=== PATIENT | female | born 1950 | race Caucasian/White ===

== ENCOUNTER → 2017-09-30 14:30 | Outpatient (CLI) | payer MEDICARE, SELFPAY ==
[2017-10-06 05:07] LABS: Immunoglobulin A 80 mg/dL (87-352); Immunoglobulin G 657 mg/dL (700-1600); Immunoglobulin M 188 mg/dL (26-217)
[2017-10-06 11:04] LABS: Immunoglobulin E 13 IU/mL (0-100)
== END ==
PROVIDERS: Family Provider Family Medicine Geriatric Medicine; PCP Family Medicine Geriatric Medicine; Visit Provider Family Medicine Geriatric Medicine
DX: D89.9 Disorder involving the immune mechanism, unspecified (principal)
CPT/HCPCS: 36415; 82784; 82785

== ENCOUNTER → 2017-10-19 14:59 | Outpatient (CLI) | payer MEDICARE, SELFPAY ==
[2017-10-19 17:01] LABS: Absolute Lymphocyte Count 2.22 X10^3/ul (0.83-4.51); Absolute Neutrophil Count 5.4 X10^3/uL (2.0-7.7); Basophil# 0.04 X10^3/uL; Basophil% 0.5 % (0-1); Eosinophil# 0.04 X10^3/uL; Eosinophils% 0.5 % (0-5); Hematocrit 41.1 % (37-47); Hemoglobin 13.6 g/dl (12.0-15.0); Lymphocyte # 2.22 X10^3/ul (4.0); Lymphocyte % 26.4 % (19-41); Mean Corp Hgb Conc 33.1 g/gl (32-36); Mean Corpuscular Hgb 29.5 pg (27.0-32.0); Mean Corpuscular Volume 89.2 fL (81-99); Mean Platelet Vol. 10.3 fl (6.2-12.0); Monocyte# 0.65 X10^3/uL; Monocyte% 7.7 % (0-10); Neutrophil # 5.43 X10^3/uL (2.7-7.7); Neutrophil % 64.7 % (47-70); Platelet Count 317 K/mm3 (150-450); RBC Distribution Width CV 14.2 % (11.6-14.6); RBC Distribution Width SD 45.8 fl (35.1-43.9); Red Blood Count 4.61 M/mm3 (4.2-5.4); White Blood Count 8.4 K/mm3 (4.4-11.0)
[2017-10-19 17:09] LABS: POSITIVE COUNT NO; POSITIVE DIFFERENTIAL NO; POSITIVE MORPHOLOGY NO
[2017-10-19 17:20] LABS: ALB/GLOB Ratio 0.9 RATIO (0.9-2.4); AST(SGOT) 17 U/L (15-37); Alanine Aminotransfer ALT/SGPT 25 U/L (13-56); Albumin, Serum 3.5 g/dL (3.2-5.0); Alkaline Phosphatase 99 U/L (45-117); Anion Gap 7 (5-15); BUN 10 mg/dL (7-18); BUN/Creat Ratio 11.2 RATIO (10-20); Calcium,Total 8.4 mg/dL (8.5-10.1); Chloride 100 mmol/L (98-107); Creatinine, Serum 0.89 mg/dL (0.55-1.02); EST Glomerular Filtration Rate 67 mL/min (>60); Est Glom Filt Rate - Afr Amer 81 mL/min (>60); Globulin 3.9 g/dL (2.2-4.2); Glucose 122 mg/dL (74-106); Potassium 3.3 mmol/L (3.5-5.1); Protein, Total 7.4 g/dL (6.4-8.2); Sodium Level 134 mmol/L (136-145); Thyroid Stim Hormone (TSH) 1.77 uIU/mL (0.358-3.74); Vitamin D,25 Hydroxy 63.5 ng/mL (29.95-100.01)
== END ==
PROVIDERS: Family Provider Family Medicine Geriatric Medicine; PCP Family Medicine Geriatric Medicine; Visit Provider Family Medicine Geriatric Medicine
DX: I10 Essential (primary) hypertension (principal); E55.9 Vitamin D deficiency, unspecified
CPT/HCPCS: 36415; 80053; 82306; 84443; 85025

== ENCOUNTER → 2017-11-10 15:00 | Outpatient (CLI) | payer MEDICARE, SELFPAY ==
[2017-11-10 17:54] LABS: BUN 10 mg/dL (7-18); Creatinine, Serum 0.86 mg/dL (0.55-1.02); EST Glomerular Filtration Rate 70 mL/min (>60); Glucose 88 mg/dL (74-106)
[2017-11-10 17:55] LABS: Anion Gap 9 (5-15); BUN/Creat Ratio 11.7 RATIO (10-20); Calcium,Total 8.8 mg/dL (8.5-10.1); Chloride 96 mmol/L (98-107); Est Glom Filt Rate - Afr Amer 84 mL/min (>60); Potassium 3.9 mmol/L (3.5-5.1); Sodium Level 133 mmol/L (136-145)
== END ==
PROVIDERS: Family Provider Family Medicine Geriatric Medicine; PCP Family Medicine Geriatric Medicine; Visit Provider Family Medicine Geriatric Medicine
DX: E87.6 Hypokalemia (principal)
CPT/HCPCS: 36415; 80048

== ENCOUNTER → 2017-11-16 14:44 | Outpatient (CLI) | payer MEDICARE, SELFPAY | PROVIDERS: Family Provider Family Medicine Geriatric Medicine; PCP Family Medicine Geriatric Medicine; Visit Provider Family Medicine Geriatric Medicine | DX: R50.9 Fever, unspecified (principal) | CPT/HCPCS: 87633 ==

== ENCOUNTER → 2018-04-21 14:38 | Outpatient (CLI) | payer MEDICARE, SELFPAY ==
[2018-04-21 17:09] LABS: Absolute Lymphocyte Count 2.11 X10^3/ul (0.83-4.51); Absolute Neutrophil Count 4.1 X10^3/uL (2.0-7.7); Basophil# 0.06 X10^3/uL; Basophil% 0.8 % (0-1); Eosinophil# 0.13 X10^3/uL; Eosinophils% 1.8 % (0-5); Hematocrit 41.4 % (37-47); Hemoglobin 13.5 g/dl (12.0-15.0); Lymphocyte # 2.11 X10^3/ul (4.0); Lymphocyte % 29.6 % (19-41); Mean Corp Hgb Conc 32.6 g/gl (32-36); Mean Corpuscular Volume 88.8 fL (81-99); Mean Platelet Vol. 10.3 fl (6.2-12.0); Monocyte# 0.73 X10^3/uL; Monocyte% 10.2 % (0-10); Neutrophil # 4.09 X10^3/uL (2.7-7.7); Neutrophil % 57.5 % (47-70); Platelet Count 284 K/mm3 (150-450); RBC Distribution Width CV 13.5 % (11.6-14.6); RBC Distribution Width SD 43.4 fl (35.1-43.9); Red Blood Count 4.66 M/mm3 (4.2-5.4); White Blood Count 7.1 K/mm3 (4.4-11.0)
[2018-04-21 17:21] LABS: POSITIVE COUNT NO; POSITIVE DIFFERENTIAL NO; POSITIVE MORPHOLOGY NO
[2018-04-21 18:23] LABS: ALB/GLOB Ratio 0.9 RATIO (0.9-2.4); AST(SGOT) 20 U/L (15-37); Alanine Aminotransfer ALT/SGPT 28 U/L (13-56); Albumin, Serum 3.6 g/dL (3.2-5.0); Alkaline Phosphatase 99 U/L (45-117); Anion Gap 11 (5-15); BUN 11 mg/dL (7-18); Calcium,Total 8.9 mg/dL (8.5-10.1); Chloride 96 mmol/L (98-107); Creatinine, Serum 0.85 mg/dL (0.55-1.02); EST Glomerular Filtration Rate 70 mL/min (>60); Est Glom Filt Rate - Afr Amer 85 mL/min (>60); Globulin 3.9 g/dL (2.2-4.2); Glucose 98 mg/dL (74-106); Potassium 3.7 mmol/L (3.5-5.1); Protein, Total 7.5 g/dL (6.4-8.2); Sodium Level 135 mmol/L (136-145); Thyroid Stim Hormone (TSH) 2.28 uIU/mL (0.358-3.74)
[2018-04-24 14:11] LABS: Hep C Antibodies <0.1 s/co ratio (0.0-0.9)
== END ==
PROVIDERS: Family Provider Family Medicine Geriatric Medicine; PCP Family Medicine Geriatric Medicine; Visit Provider Family Medicine Geriatric Medicine
DX: I10 Essential (primary) hypertension (principal); E55.9 Vitamin D deficiency, unspecified; Z13.89 Encounter for screening for other disorder
CPT/HCPCS: 36415; 80053; 82306; 84443; 85025; 86803

== ENCOUNTER → 2018-05-27 15:11 | Outpatient (CLI) | payer MEDICARE, SELFPAY ==
--- NOTE | 2018-05-27 15:14 | BI_ITS ---
MAMMOGRAPHY - BILATERAL SCREENING REASON FOR EXAM: Female, 68 years old. Routine annual screening examination. PERTINENT HISTORY: Non-contributory. TECHNIQUE: Digital bilateral breast [place] (3D mammographic acquisition) in the CC and MLO projections. 2-D mediolateral oblique (MLO) and craniocaudad (CC) views of both breasts were obtained. CAD: Full Field Digital Mammography with Computer Added Detection was performed. COMPARISON: Comparison is made with prior study dated May 01, 2016 and April 20, 2014. FINDINGS: Breast Composition: There are scattered areas of fibroglandular density. There are no dominant masses or suspicious calcifications. Stable benign-appearing bilateral axillary lymph nodes. No other significant abnormalities are identified. There has been no significant change since the prior study. BI/SCREENING MAMM (CAD), BILAT IMPRESSION: Stable bilateral screening mammogram. Yearly follow-up mammogram recommended. (A) ASSESSMENT CATEGORY: BIRADS Category 2: Benign. A letter regarding these results will be sent to the patient by the facility within 30 days. Approximately 10% of breast cancers are not detected by mammography. A normal mammogram should not delay biopsy of a clinically suspicious abnormality. [id number] Electronically Signed: Ifeanyi Álvarez MD at 10:41 EDT Tel [phone], Service support ,
--- NOTE | 2018-05-27 15:16 | BD_ITS ---
STUDY: DUAL ENERGY X-RAY ABSORPTIOMETRY / DXA REASON FOR EXAM: Female, 68 years old. The patient is postmenopausal. Loss of height. TECHNIQUE: Bone Mineral Density (BMD) measurements of lumbar spine and bilateral hips were obtained. COMPARISON: Comparison is made with prior study dated July 21, 2007. FINDINGS: Lumbar Spine (L1-L4): g/cm2 (1.168) / T-score (-0.1) / Z-score (1.6) Findings are suggestive of normal bone density with a low fracture risk. Left Femur Total: g/cm2 (0.957) / T-score (-0.4) / Z-score (1.1) Left Femoral Neck: g/cm2 (0.863) / T-score (-1.3) / Z-score (0.4) Right Femur Total: g/cm2 (0.943) / T-score (-0.5) / Z-score (1.0) Right Femoral Neck: g/cm2 (0.867) / T-score (-1.2) / Z-score (0.5) The T-Scores on the most recent prior examination were: Lumbar Spine (L1-L4): There has been improvement of bone density since the previous examination. Left Femur Total: which represents an improvement of 3.5%. Right Femur Total: which represents an improvement of 2.1%. BD/Dexa Bone Density Study IMPRESSION: The patient is considered osteopenic as outlined below according to World Jarvis Organization (WHO) criteria with a moderate fracture risk. There has been improvement of bone density since the previous examination. Reference Information: The T-score is the number of standard deviations above or below the standard which is normal for young adults at their peak bone mineral density. The World Health Organization (WHO) interprets the T-scores as follows: Above -1 Normal bone density Between -1 and -2.5 Osteopenia Equal to / or below -2.5 Osteoporosis As a practical clinical guideline, osteopenia may be graded as follows: Mild -1 through -1.5 Moderate -1.6 through -2.0 Severe -2.1 through -2.4 The Z-score is the number of standard deviations above or below age-matched controls. A Z-score of less than -1.5 would be considered abnormal. References: 1. NIH Osteoporosis and Related Bone Diseases http://www.osteo.org 2. International Society for Clinical Densitometry http://www.iscd.org 3. National Osteoporosis Foundation http://www.nof.org Electronically Signed: Ifeanyi Álvarez MD at 8:53 EDT Tel [phone], Service support ,
== END ==
PROVIDERS: Family Provider Family Medicine Geriatric Medicine; PCP Family Medicine Geriatric Medicine; Visit Provider Family Medicine Geriatric Medicine
DX: Z12.31 Encounter for screening mammogram for malignant neoplasm of breast (principal); Z78.0 Asymptomatic menopausal state
CPT/HCPCS: 77063; 77067; 77080

== ENCOUNTER → 2018-06-08 08:02 | Outpatient (CLI) | payer MEDICARE, SELFPAY ==
--- NOTE | 2018-06-08 08:05 | RAD_ITS ---
STUDY: X-RAY - ESOPHAGUS (BARIUM SWALLOW) WITH FLUOROSCOPY REASON FOR EXAM: Female, 68 years old. Distal esophageal spasm. Difficulty with pills. TECHNIQUE: 15 view(s) of the esophagus were obtained following swallowing of barium. FLUOROSCOPY TIME (if supplied): (0:30) minutes/seconds COMPARISON: None. FINDINGS: There is no demonstrated esophageal foreign body. There is no demonstrated stricture or mucosal abnormality. There is evidence of a moderate-sized sliding hernia with gastroesophageal reflux. The patient ingest a 12 mm tablet of barium without any difficulty. Normal visualized aortic arch and descending thoracic aorta. Normal visualized pulmonary parenchyma. Normal visualized osseous structures of the thorax. RAD/Esophagus Only IMPRESSION: Moderate sized hiatal hernia with gastroesophageal reflux. Electronically Signed: Ifeanyi Álvarez MD at 9:20 EDT Tel [phone], Service support ,
== END ==
PROVIDERS: Family Provider Family Medicine Geriatric Medicine; PCP Family Medicine Geriatric Medicine; Referring Provider Internal Medicine Gastroenterology; Visit Provider Internal Medicine Gastroenterology
DX: R13.10 Dysphagia, unspecified (principal); K21.9 Gastro-esophageal reflux disease without esophagitis
CPT/HCPCS: 74220

== ENCOUNTER → 2018-07-13 15:29 | Outpatient (CLI) | payer MEDICARE, SELFPAY ==
--- NOTE | 2018-07-13 15:32 | CT_ITS ---
STUDY: CT LEFT FOOT REASON FOR EXAM: Female, 68 years old. Follow-up left foot navicular fracture, continued pain due to fracture RADIATION DOSAGE (If Supplied By Facility): CTDIvol = ( 6.13 ) mGy, DLP = ( 116.81 ) mGycm TECHNIQUE: Thin section transaxial imaging of the foot was obtained, with sagittal and coronal reconstructed images. Individualized dose optimization techniques were used for this CT. COMPARISON: None. FINDINGS: Normal talus, calcaneus, and tarsal bones allowing for a tiny plantar caliber peroneal spur. Minimal anterior tibial spur. There is no acute fracture injury or dislocation. There is no callus formation to suggest of a healing fracture. There is no focal osteolytic or blastic lesion. Minimal joint space narrowing of the visualized tibiotalar, subtalar, talonavicular, calcaneocuboid, tarsal and tarsometatarsal articulations. Normal metatarsi. There is hallux valgus deformity of the first metatarsophalangeal joint. There is lateral displacement of the tibial and fibular sesamoid bones with the proximal phalanx, the tibial sesamoid is located at the expected location of the fibular sesamoid and fibular sesamoid along the first interphalangeal space. Normal interphalangeal joint of the great toe. Normal phalanges of the great toe. Normal second through fifth metatarsophalangeal joints. Normal interphalangeal joints and phalanges of the lesser toes. The soft tissue structures are unremarkable. CT/Extremity Lower without Contra IMPRESSION: No evidence of an acute or healing fracture or remote fracture deformity detected. Mild joint space narrowing. Hallux valgus deformity with lateral displacement of the tibia and fibula sesamoid paralleling the first proximal phalangeal angulation. Electronically Signed: Kathie Parnell MD at 2:25 EST , Service support ,
== END ==
PROVIDERS: Family Provider Family Medicine Geriatric Medicine; PCP Family Medicine Geriatric Medicine; Referring Provider Physician Assistant; Visit Provider Physician Assistant
DX: S92.255D Nondisplaced fracture of navicular [scaphoid] of left foot, subsequent encounter for fracture with routine healing (principal); X58.XXXD Exposure to other specified factors, subsequent encounter
CPT/HCPCS: 73700

== ENCOUNTER → 2018-08-18 15:12 | Outpatient (CLI) | payer MEDICARE, SELFPAY | PROVIDERS: Family Provider Family Medicine Geriatric Medicine; PCP Family Medicine Geriatric Medicine; Visit Provider Family Medicine Geriatric Medicine | DX: N39.0 Urinary tract infection, site not specified (principal) | CPT/HCPCS: 87086; 87088 ==

== ENCOUNTER → 2018-10-20 15:14 | Outpatient (CLI) | payer MEDICARE, SELFPAY ==
[2018-10-20 17:17] LABS: Absolute Lymphocyte Count 2.05 X10^3/ul (0.83-4.51); Absolute Neutrophil Count 4.4 X10^3/uL (2.0-7.7); Basophil# 0.03 X10^3/uL; Basophil% 0.4 % (0-1); Eosinophil# 0.09 X10^3/uL; Eosinophils% 1.3 % (0-5); Hematocrit 39.3 % (37-47); Hemoglobin 12.6 g/dl (12.0-15.0); Lymphocyte # 2.05 X10^3/ul (4.0); Lymphocyte % 28.5 % (19-41); Mean Corp Hgb Conc 32.1 g/gl (32-36); Mean Corpuscular Hgb 29.2 pg (27.0-32.0); Mean Platelet Vol. 10.2 fl (6.2-12.0); Monocyte# 0.67 X10^3/uL; Monocyte% 9.3 % (0-10); Neutrophil # 4.35 X10^3/uL (2.7-7.7); Neutrophil % 60.4 % (47-70); Platelet Count 287 K/mm3 (150-450); RBC Distribution Width CV 13.6 % (11.6-14.6); Red Blood Count 4.32 M/mm3 (4.2-5.4); White Blood Count 7.2 K/mm3 (4.4-11.0)
[2018-10-20 17:18] LABS: POSITIVE COUNT NO; POSITIVE DIFFERENTIAL NO; POSITIVE MORPHOLOGY NO
[2018-10-20 17:43] LABS: Vitamin D,25 Hydroxy 86.9 ng/mL (29.95-100.01)
[2018-10-20 17:54] LABS: ALB/GLOB Ratio 0.9 RATIO (0.9-2.4); AST(SGOT) 14 U/L (15-37); Alanine Aminotransfer ALT/SGPT 24 U/L (13-56); Albumin, Serum 3.5 g/dL (3.2-5.0); Alkaline Phosphatase 83 U/L (45-117); Anion Gap 9 (5-15); BUN 20 mg/dL (7-18); BUN/Creat Ratio 17.2 RATIO (10-20); Calcium,Total 8.7 mg/dL (8.5-10.1); Chloride 98 mmol/L (98-107); Creatinine, Serum 1.16 mg/dL (0.55-1.02); EST Glomerular Filtration Rate 49 mL/min (>60); Est Glom Filt Rate - Afr Amer 59 mL/min (>60); Globulin 3.7 g/dL (2.2-4.2); Glucose 103 mg/dL (74-106); Potassium 3.8 mmol/L (3.5-5.1); Protein, Total 7.2 g/dL (6.4-8.2); Sodium Level 135 mmol/L (136-145); Thyroid Stim Hormone (TSH) 1.96 uIU/mL (0.358-3.74)
== END ==
PROVIDERS: Family Provider Family Medicine Geriatric Medicine; PCP Family Medicine Geriatric Medicine; Visit Provider Family Medicine Geriatric Medicine
DX: I10 Essential (primary) hypertension (principal); E55.9 Vitamin D deficiency, unspecified
CPT/HCPCS: 36415; 80053; 82306; 84443; 85025

== ENCOUNTER → 2019-04-21 11:52 | Outpatient (CLI) | payer MEDICARE, SELFPAY ==
--- NOTE | 2019-04-21 11:57 | RAD_ITS ---
STUDY: X-RAY CHEST REASON FOR EXAM: Female, 69 years old. Bronchitis, nonproductive cough x6 days, chills TECHNIQUE: PA and lateral views of the chest. COMPARISON: Prior study of 06/16/2017 FINDINGS: There is a small calcified granuloma of the left lower lobe. There is no demonstrated pleural abnormality. Normal size heart. Normal mediastinum and savana. Normal visualized pulmonary arteries. There are calcified plaques of the aortic arch. There is a mild thoracic dextroscoliosis. Normal visualized ribs, clavicles, and shoulders. There is no demonstrated abnormality of the visualized soft tissue structures of the upper abdomen. RAD/Chest PA and Lateral IMPRESSION: Small calcified granuloma of the left lower lobe. Calcified plaques of the aortic arch. Mild thoracic dextroscoliosis. No acute cardiopulmonary disease process is seen. Chest findings are stable in the interval. Electronically Signed: Raul Orellana MD at 23:59 EDT , Service support ,
== END ==
PROVIDERS: Family Provider Family Medicine Geriatric Medicine; PCP Family Medicine Geriatric Medicine; Referring Provider Family Medicine Geriatric Medicine; Visit Provider Family Medicine Geriatric Medicine
DX: J40 Bronchitis, not specified as acute or chronic (principal); R68.83 Chills (without fever)
CPT/HCPCS: 71046; 87633

== ENCOUNTER → 2019-04-25 10:16 | Outpatient (CLI) | payer MEDICARE, SELFPAY ==
[2019-04-25 17:14] LABS: Absolute Lymphocyte Count 1.48 X10^3/uL (0.83-4.51); Absolute Neutrophil Count 8.1 X10^3/uL (2.0-7.7); Basophil# 0.02 X10^3/uL; Basophil% 0.2 % (0-1); Eosinophil# 0.01 X10^3/uL; Eosinophils% 0.1 % (0-5); Hematocrit 42.2 % (37-47); Hemoglobin 13.3 g/dL (12.0-15.0); Lymphocyte # 1.48 X10^3/ul (4.0); Lymphocyte % 14.4 % (19-41); Mean Corp Hgb Conc 31.5 g/dL (32-36); Mean Corpuscular Hgb 28.5 pg (27.0-32.0); Mean Corpuscular Volume 90.4 fL (81-99); Mean Platelet Vol. 10.2 fl (6.2-12.0); Monocyte% 5.8 % (0-10); NRBC Flagged by Analyzer 0 % (0-5); Neutrophil % 78.8 % (47-70); Platelet Count 282 K/mm3 (150-450); RBC Distribution Width CV 13.5 % (11.6-14.6); Red Blood Count 4.67 M/mm3 (4.2-5.4); White Blood Count 10.3 K/mm3 (4.4-11.0)
[2019-04-25 17:31] LABS: Vitamin D,25 Hydroxy 53.1 ng/mL (29.95-100.01)
[2019-04-25 17:48] LABS: ALB/GLOB Ratio 0.9 RATIO (0.9-2.4); AST(SGOT) 12 U/L (15-37); Alanine Aminotransfer ALT/SGPT 23 U/L (13-56); Albumin, Serum 3.7 g/dL (3.2-5.0); Alkaline Phosphatase 87 U/L (45-117); Anion Gap 11 (5-15); BUN 22 mg/dL (7-18); BUN/Creat Ratio 19.8 RATIO (10-20); Calcium,Total 8.9 mg/dL (8.5-10.1); Chloride 97 mmol/L (98-107); Creatinine, Serum 1.11 mg/dL (0.55-1.02); EST Glomerular Filtration Rate 52 mL/min (>60); Est Glom Filt Rate - Afr Amer 62 mL/min (>60); Glucose 140 mg/dL (74-106); Potassium 3.3 mmol/L (3.5-5.1); Protein, Total 7.7 g/dL (6.4-8.2); Sodium Level 133 mmol/L (136-145); Thyroid Stim Hormone (TSH) 2.93 uIU/mL (0.358-3.74)
== END ==
PROVIDERS: Family Provider Family Medicine Geriatric Medicine; PCP Family Medicine Geriatric Medicine; Visit Provider Family Medicine Geriatric Medicine
DX: I10 Essential (primary) hypertension (principal); M10.9 Gout, unspecified; E55.9 Vitamin D deficiency, unspecified
CPT/HCPCS: 36415; 80053; 82306; 84443; 84550; 85025

== ENCOUNTER → 2019-05-04 11:08 | Outpatient (CLI) | payer MEDICARE, SELFPAY ==
[2019-05-04 12:20] LABS: Anion Gap 9 (5-15); BUN 16 mg/dL (7-18); BUN/Creat Ratio 16.3 RATIO (10-20); Calcium,Total 8.7 mg/dL (8.5-10.1); Chloride 102 mmol/L (98-107); Creatinine, Serum 0.98 mg/dL (0.55-1.02); EST Glomerular Filtration Rate 59 mL/min (>60); Est Glom Filt Rate - Afr Amer 72 mL/min (>60); Glucose 108 mg/dL (74-106); Potassium 3.6 mmol/L (3.5-5.1); Sodium Level 137 mmol/L (136-145)
== END ==
PROVIDERS: Family Provider Family Medicine Geriatric Medicine; PCP Family Medicine Geriatric Medicine; Visit Provider Family Medicine Geriatric Medicine
DX: E87.6 Hypokalemia (principal)
CPT/HCPCS: 36415; 80048

== ENCOUNTER → 2019-05-11 11:22 | Outpatient (CLI) | payer MEDICARE, SELFPAY ==
[2019-05-11 12:10] LABS: Absolute Lymphocyte Count 1.38 X10^3/uL (0.83-4.51); Absolute Neutrophil Count 4.9 X10^3/uL (2.0-7.7); Basophil# 0.05 X10^3/uL; Basophil% 0.7 % (0-1); Eosinophils% 1.4 % (0-5); Hematocrit 40.8 % (37-47); Lymphocyte # 1.38 X10^3/ul (4.0); Lymphocyte % 19.8 % (19-41); Mean Corp Hgb Conc 31.9 g/dL (32-36); Mean Corpuscular Hgb 28.6 pg (27.0-32.0); Mean Corpuscular Volume 89.7 fL (81-99); Mean Platelet Vol. 9.9 fl (6.2-12.0); Monocyte# 0.55 X10^3/uL; Monocyte% 7.9 % (0-10); NRBC Flagged by Analyzer 0 % (0-5); Neutrophil # 4.88 X10^3/uL (2.7-7.7); Neutrophil % 69.9 % (47-70); Platelet Count 230 K/mm3 (150-450); RBC Distribution Width CV 13.5 % (11.6-14.6); RBC Distribution Width SD 44.5 fl (35.1-43.9); Red Blood Count 4.55 M/mm3 (4.2-5.4)
[2019-05-11 12:13] LABS: ALB/GLOB Ratio 0.9 RATIO (0.9-2.4); AST(SGOT) 14 U/L (15-37); Alanine Aminotransfer ALT/SGPT 22 U/L (13-56); Albumin, Serum 3.5 g/dL (3.2-5.0); Alkaline Phosphatase 90 U/L (45-117); Anion Gap 5 (5-15); BUN 19 mg/dL (7-18); BUN/Creat Ratio 17.3 RATIO (10-20); Calcium,Total 9.2 mg/dL (8.5-10.1); Chloride 102 mmol/L (98-107); EST Glomerular Filtration Rate 52 mL/min (>60); Est Glom Filt Rate - Afr Amer 63 mL/min (>60); Globulin 3.7 g/dL (2.2-4.2); Glucose 106 mg/dL (74-106); Potassium 3.8 mmol/L (3.5-5.1); Protein, Total 7.2 g/dL (6.4-8.2); Sodium Level 134 mmol/L (136-145); Thyroid Stim Hormone (TSH) 2.17 uIU/mL (0.358-3.74)
== END ==
LOC: POLAB3 11:22 → PSN 12:45
PROVIDERS: Family Provider Family Medicine Geriatric Medicine; PCP Family Medicine Geriatric Medicine; Referring Provider Family Medicine Geriatric Medicine; Visit Provider Family Medicine Geriatric Medicine
DX: R53.83 Other fatigue (principal); R68.83 Chills (without fever)
CPT/HCPCS: 36415; 80053; 84443; 85025; 87633

== ENCOUNTER → 2019-05-26 16:08 | Outpatient (CLI) | payer MEDICARE, SELFPAY ==
--- NOTE | 2019-05-26 16:15 | RAD_ITS ---
STUDY: X-RAY CHEST REASON FOR EXAM: Female, 69 years old. Cough, bronchitis TECHNIQUE: PA and lateral views of the chest. COMPARISON: 04/21/2019 FINDINGS: There is hyperinflation of the lungs consistent with chronic obstructive lung disease (COPD). There is no demonstrated pleural abnormality. Normal size heart. Normal mediastinum and savana. Normal visualized pulmonary arteries. Normal visualized aortic arch and descending thoracic aorta. There is a dextroscoliosis of the thoracic spine. Normal visualized ribs, clavicles, and shoulders. There is no demonstrated abnormality of the visualized soft tissue structures of the upper abdomen. RAD/Chest PA and Lateral IMPRESSION: Emphysema without pneumonia or atelectasis. Electronically Signed: Cristofer Murphy MD at 16:44 EDT Tel , Service support ,
== END ==
PROVIDERS: Family Provider Family Medicine Geriatric Medicine; PCP Family Medicine Geriatric Medicine; Referring Provider Family Medicine Geriatric Medicine; Visit Provider Family Medicine Geriatric Medicine
DX: J40 Bronchitis, not specified as acute or chronic (principal); R68.83 Chills (without fever)
CPT/HCPCS: 71046; 87633

== ENCOUNTER → 2019-06-17 10:06 | Outpatient (CLI) | payer MEDICARE, SELFPAY ==
--- NOTE | 2019-06-17 10:13 | RAD_ITS ---
STUDY: X-RAY CHEST REASON FOR EXAM: Female, 69 years old. Shortness of breath. TECHNIQUE: PA and lateral views of the chest. COMPARISON: 05/26/2019. FINDINGS: The lungs are normally expanded with diffuse nonspecific interstitial prominence, stable. There is a calcified granuloma in the left lower lung field measuring 6 mm. Remainder of the lung gambino are clear. There is no demonstrated pleural abnormality. Normal size heart. Normal mediastinum and savana. Normal visualized pulmonary arteries. Normal visualized aortic arch and descending thoracic aorta. There is demineralization of the osseous structures. There is degenerative osteoarthritis of the bilateral shoulders. There is no demonstrated abnormality of the visualized soft tissue structures of the upper abdomen. RAD/Chest PA and Lateral IMPRESSION: No acute cardiopulmonary disease. Electronically Signed: Yolanda Butterfield MD at 0:40 EST , Service support ,
== END ==
PROVIDERS: Family Provider Family Medicine Geriatric Medicine; PCP Family Medicine Geriatric Medicine; Referring Provider Family Medicine Geriatric Medicine; Visit Provider Family Medicine Geriatric Medicine
DX: R06.89 Other abnormalities of breathing (principal)
CPT/HCPCS: 71046

== ENCOUNTER → 2019-06-30 07:31 | Outpatient (CLI) | payer MEDICARE, SELFPAY ==
--- NOTE | 2019-07-04 07:31 | PFT ---
INTRODUCTION: The patient is a 69-year-old female that presents for pulmonary function studies secondary to a diagnosis of shortness of breath. Respiratory therapy reports good patient effort. Bronchodilators were used during testing. INTERPRETATION: Forced expiration spirometry demonstrates no evidence of a large airways obstructive ventilatory defect. There was no significant response to aerosolized bronchodilators. Spirograms are of good quality and plateau normally. Body plethysmography was performed and reveals lung volumes to be within normal limits. Diffusing capacity by single breath CO is within normal limits as well. IMPRESSION: Normal spirometry, lung volumes and diffusing capacity.
== END ==
PROVIDERS: Family Provider Family Medicine Geriatric Medicine; PCP Family Medicine Geriatric Medicine; Referring Provider Family Medicine Geriatric Medicine; Visit Provider Family Medicine Geriatric Medicine
DX: R06.02 Shortness of breath (principal)
CPT/HCPCS: 94060; 94726; 94729

== ENCOUNTER 2019-07-07 21:35 | Observation (INO) | payer MEDICARE, SELFPAY ==
[2019-07-07 21:35] VITALS: BP 127/72; PULSE 79; PULSE 83; RESP 16; TEMP 36.6; O2SAT 96; BMI 28.4
--- NOTE | 2019-07-07 21:58 | EKG12_ITS ---
Test Reason : CP Blood Pressure : / mmHG Vent. Rate : 079 BPM Atrial Rate : 079 BPM P-R Int : 158 ms QRS Dur : 082 ms QT Int : 390 ms P-R-T Axes : 032 030 058 degrees QTc Int : 447 ms Normal sinus rhythm with sinus arrhythmia Normal ECG Confirmed by ROMAIN MORSE, NANI ([id number]), editor producer OG FUNES ([id number]) on 07/11/2019 11:46:04 AM Referred By: Confirmed By:NANI HOYOS MD
--- NOTE | 2019-07-07 21:59 | ED.DCSUM_ITS ---
- ER Visit Summary Date of Service: 07/07/19 Chief Complaint: Chest pain History of Present Illness: The patient is a 69 F who presents with chest pain that began tonight. Patient states she woke up tonight feeling nauseated and was going to her bathroom. Patient states that she also had chest pain when she woke up. Patient states her pain became worse after she vomited and walked back to her bedroom. Patient describes her pain as sharp and aching. Patient states the pain is over the substernal area. Patient called EMS. EMS administered aspirin and nitroglycerin. Patient states her pain improved with this. Patient states she has been having some palpitations recently where her heart feels like it is beating hard. Patient also admits to a recent cough but denies any sputum production. Patient denies any fevers or chills. Physical Examination: Vital signs are stable. Patient is afebrile. Patient is in no acute distress. Oral mucosa is pink and moist. Neck is supple. Trachea is midline. There is no JVD noted. Heart was regular rate and rhythm. Lungs are clear and equal bilaterally. Abdomen is soft. Bowel sounds are normal. There is no tenderness. There is no guarding noted. Skin is warm dry. Cranial nerves II through XII are intact. There are no focal motor or sensory deficits noted. Test Results: EKG showed a normal sinus rhythm with a rate of 79. There are no acute ST or T wave changes. This was unchanged compared to previous EKG dated 06/21/2008. CBC shows a mild 0.7 and hematocrit 35.8. Basic metabolic profile was essentially normal limits. Troponin was normal. PA and lateral chest x-ray was obtained. There is no acute cardiopulmonary process. This was interpreted by the radiologist myself. Emergency Department Course and Treatment: Patient had no further chest pain emergency department. Patient was resting comfortably on reevaluation. Patient has a HEART score of 5. I recommended admission to the patient for further evaluation and probable stress test. Patient was agreeable with this. Case was discussed with the hospitalist. He will admit the patient to the PCU for observation. Disposition: Admit to hospital Impression: 1. Chest pain This note was generated with [employer] dictation software. It may contain incorrect words, spelling, and punctuation that were not noted in review of the chart pr ior to signing ED Disposition - Plan for ED Patient: Disposition: Acute Care Hospital [facility] Diagnosis: Chest pain Referrals: Reed Cuenca Chi, MD [Primary Care Provider] -
[2019-07-07 22:01] VITALS: O2SAT 97
--- NOTE | 2019-07-07 22:05 | RAD_ITS ---
STUDY: X-RAY CHEST REASON FOR EXAM: Female, 69 years old. Nausea and vomiting TECHNIQUE: PA and lateral views of the chest. COMPARISON: 06/17/2019 FINDINGS: EKG leads overlie the chest There are interstitial fibrotic changes of the lungs with scattered calcified granulomata. There is no demonstrated pleural abnormality. Normal size heart. Normal mediastinum and savana. Normal visualized pulmonary arteries. Normal visualized aortic arch and descending thoracic aorta. Normal visualized thoracic spine. Normal visualized ribs, clavicles, and shoulders. There is no demonstrated abnormality of the visualized soft tissue structures of the upper abdomen. RAD/Chest PA and Lateral IMPRESSION: No acute pulmonary process Electronically Signed: Oskar Mathew MD at 22:28 EST , Service support ,
[2019-07-07 22:07] LABS: Absolute Lymphocyte Count 2.24 X10^3/uL (0.83-4.51); Absolute Neutrophil Count 3.4 X10^3/uL (2.0-7.7); Basophil# 0.05 X10^3/uL; Basophil% 0.8 % (0-1); Eosinophil# 0.14 X10^3/uL; Eosinophils% 2.2 % (0-5); Hematocrit 35.8 % (37-47); Hemoglobin 11.7 g/dL (12.0-15.0); Lymphocyte # 2.24 X10^3/ul (4.0); Lymphocyte % 34.9 % (19-41); Mean Corp Hgb Conc 32.7 g/dL (32-36); Mean Corpuscular Hgb 29.8 pg (27.0-32.0); Mean Corpuscular Volume 91.1 fL (81-99); Mean Platelet Vol. 10.5 fl (6.2-12.0); Monocyte# 0.58 X10^3/uL; NRBC Flagged by Analyzer 0 % (0-5); Neutrophil # 3.38 X10^3/uL (2.7-7.7); Neutrophil % 52.8 % (47-70); Platelet Count 207 K/mm3 (150-450); RBC Distribution Width CV 14.4 % (11.6-14.6); RBC Distribution Width SD 48.4 fl (35.1-43.9); Red Blood Count 3.93 M/mm3 (4.2-5.4); White Blood Count 6.4 K/mm3 (4.4-11.0)
[2019-07-07 22:20] LABS: Anion Gap 9 (5-15); BUN 13 mg/dL (7-18); BUN/Creat Ratio 14.9 RATIO (10-20); Calcium,Total 8.3 mg/dL (8.5-10.1); Chloride 110 mmol/L (98-107); Creatinine, Serum 0.87 mg/dL (0.55-1.02); EST Glomerular Filtration Rate 68 mL/min (>60); Est Glom Filt Rate - Afr Amer 82 mL/min (>60); Estimated Creatinine Clearance 51.22 ml/min; Glucose 97 mg/dL (74-106); Potassium 3.6 mmol/L (3.5-5.1); Sodium Level 143 mmol/L (136-145)
[2019-07-07 22:30] VITALS: BP 128/67; PULSE 78; RESP 16; O2SAT 98
--- NOTE | 2019-07-07 22:44 | PCM.HP.STD ---
Problem List (1) Chest pain Status: Acute History of Present Illness Date of Admission: 07/07/19 Chief Complaint: chest pain The patient is a 69 year old F with a significant history of hypertension; GERD; chronic headache and anxiety who presented to emergency department with excruciating chest pain after a few hours before presentation. The patient was asleep and she woke up because of nausea. Also she had chest pain when she woke up. She did vomit. And the chest pain worsened after vomiting. A chest pain is substernal and does not radiate. She is not able to provide a quality of her chest pain. The paramedics gave her a aspirin and sublingual nitroglycerin that improved her pain considerably. She has a history of GERD and she is unsure whether her chest pain is from her GERD. Stress test in 2013 was unremarkable Past Medical History Medical History: Medical History (Last Updated 07/07/19 @ 23:39 by Anthony Garcia MD) HTN (hypertension) I10 Allergies adhesive Allergy (Verified 07/07/19 21:50) Rash metaxalone [From Skelaxin] Allergy (Verified 07/07/19 21:50) Rash tramadol Allergy (Verified 07/07/19 21:50) Itching amitriptyline Adverse Reaction (Verified 07/07/19 21:50) Mucosal lesions budesonide [From Symbicort] Adverse Reaction (Verified 07/07/19 21:50) Mucosal lesions clarithromycin [From Biaxin] Adverse Reaction (Verified 07/07/19 21:50) Upset Stomach erythromycin base Adverse Reaction (Verified 07/07/19 21:50) Upset Stomach formoterol fumarate [From Symbicort] Adverse Reaction (Verified 07/07/19 21:50) Mucosal lesions naproxen Adverse Reaction (Verified 07/07/19 21:50) Upset Stomach Home Medications: Ambulatory Orders Medication Instructions Recorded Calcium Carbonate [Calcium] 600 mg PO DAILY 08/17/15 Co Q10 200 [Co Q-10] 200 mg PO DAILY 08/17/15 Ergocalciferol [Vitamin D] 1.25 mg PO Q7D 08/17/15 Estradiol 1 mg PO DAILY 08/17/15 Fish Oil/Borage/Flax/Om3,6,9 1 1,200 mg PO DAILY 08/17/15 [[place] 3-6-9 1,200 mg Softgel] Multivitamin [Daily Multiple 1 each PO DAILY 08/17/15 Vitamin] Omeprazole 20 mg PO BID 08/17/15 Cholecalciferol (Vitamin D3) 1,000 unit PO DAILY 07/07/19 [Vitamin D3] Citalopram Hydrobromide 10 mg PO DAILY 07/07/19 [Citalopram HBr] Magnesium Oxide [Magnesium] 400 mg PO DAILY 07/07/19 Zolpidem Tartrate 10 mg PO DAILY 07/07/19 Surgical History: hysterectomy, - - Two shoulder surgeries; foot surgery; two surgery for trigger fingers; carpal tunnel surgery; surgery for tubal ligation. Psychiatric History: Anxiety, Depression Smoking Status: Never smoker Alcohol: None - *Family History Maternal History Items: Cancer - Cancer of female organs, - - Arthritis; degenerative muscular disease Paternal History Items: Heart Disease - Multiple (3)have brought us in their 20s and 30s had heart disease. Also her aunt, uncle and father had heart disease, Stroke - His father had multiple CVAs Review of Systems Constitutional: Denies: Chills, Fever, Weight Change HEENT: Reports: Head Aches. Denies: Sinus Congestion, Sinus Drainage Cardiovascular: Reports: Chest Pain. Denies: Palpitations Respiratory: Reports: Cough - dry, Shortness of Breath. Denies: Sputum production Gastrointestinal: Reports: Nausea, Vomiting. Denies: Abdominal Pain Genitourinary: Denies: Dysuria Musculoskeletal: Denies: Joint Pain, Joint Tenderness Skin: Denies: Rash, Wounds Neurological: Denies: Numbness, Tingling, Focal weakness Psychiatric: Denies: Anxiety, Depression, Homicidal Ideations, Suicidal Ideations Hematologic/ Lymphatic: Denies: Easy Bruising, Easy Bleeding VTE Information - Inpt Only VTE Present on Admission: No VTE Mechan Device Prophylaxis: SCD's VTE Pharm Prophylaxis ordered?: No Patient Problems: Active and Suspected Problems (Last Updated 07/07/19 @ 23:39 by Anthony Garcia MD) Chest pain (Acute) - Physical Exam Vitals/I&O's: Vital Signs Temp Pulse Resp BP Pulse Ox 98 F 79 16 127/72 H 97 07/07/19 21:35 07/07/19 21:35 07/07/19 21:35 07/07/19 21:35 07/07/19 22:01 Oxygen Delivery Method Room Air Weight: 75.1 kg Body Mass Index (BMI) 28.4 General: Alert, Oriented x3, Cooperative HEENT: Atraumatic, PERRLA, EOMI, Normocephalic Neck: Supple, No JVD, Negative Carotid Bruits Lungs: Clear to auscultation, Normal air movement Cardiovascular: Regular rate, No murmurs Abdomen: Bowel Sounds Present, Soft, Non Tender Extremities: No edema, Capillary Refill Less than 3 Seconds Skin: No rashes, No breakdown Musculoskeletal: No Tenderness to Palpation of Joints or Extremities Neurological: Cranial nerves II-XII grossly intact Psych/Mental Status: Normal Affect, Appropriate Laboratory Results 07/07/19 21:41: WBC 6.4, RBC 3.93 L, Hgb 11.7 L, Hct 35.8 L, MCV 91.1, MCH 29.8, MCHC 32.7, RDW Std Deviation 48.4 H, RDW Coeff of Darlene 14.4, Plt Count 207, MPV 10.5, Immature Gran % (Auto) 0.300, Neut % (Auto) 52.8, Lymph % (Auto) 34.9, [place] % (Auto) 9.0, Eos % (Auto) 2.2, Baso % (Auto) 0.8, Absolute Neuts (auto) 3.4, Absolute Lymphs (auto) 2.24, Nucleated RBC % 0 07/07/19 21:41: Sodium 143, Potassium 3.6, Chloride 110 H, Carbon Dioxide 24.0, Anion Gap 9, BUN 13, Creatinine 0.87, Estim Creat Clear Calc 51.22, Est GFR (MDRD) Af Amer 82, Est GFR (MDRD) Non-Af 68, BUN/Creatinine Ratio 14.9, Glucose 97, Calcium 8.3 L, Troponin I < 0.015 Assessment/Plan All Active Problems (Last Updated 07/07/19 @ 23:39 by Anthony Garcia MD) Chest pain (Acute) The patient is a 69 year old F with a significant history of hypertension; chronic headache and anxiety who presented to emergency department with excruciating chest pain. Chest pain Place on a monitored bed at U CXR independently reviewed confirms no acute cardiopulmonary process. EKG independently reviewed confirms sinus rhythm ASA 81 mg p.o. daily We will check lipid panel. 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 She was then placed on Tylenol. Per patient Tylenol does not help with her pain. Patient attributes her headache to dehydration and reports that in the past IVF has helped improve her headache. Patient is requesting IV fluids. However labs do not show dehydration. Will put patient on half-normal saline with potassium since her potassium is low normal. Of note patient has mild hyperchloremia Depression/Anxiety disorder Citalopram continued. Insomnia Ambien continued GERD PPI continued Hypertension On presentation her blood pressure was within goal. Reportedly she was on some home medication that affected her kidney so the medication had to be discontinued. Trend blood pressure DVT prophylaxis SCD while planning for cardiac work up for chest pain Code Visit OBSV E&M: [id number] Initial observation care L3
[2019-07-07 23:15] VITALS: BP 121/59; PULSE 82; RESP 16; O2SAT 95
[2019-07-08] VITALS (9 sets, daily range): BP systolic 118–140; BP diastolic 47–64; PULSE 64–82; RESP 16–17; TEMP 36.6–36.8; O2SAT 93–96; BMI 25.9; BMI 26.0
--- NOTE | 2019-07-08 00:15 | EKG12_ITS ---
Test Reason : CP ADMISSION Blood Pressure : / mmHG Vent. Rate : 074 BPM Atrial Rate : 074 BPM P-R Int : 170 ms QRS Dur : 074 ms QT Int : 374 ms P-R-T Axes : 033 024 050 degrees QTc Int : 415 ms Normal sinus rhythm Normal ECG When compared with ECG of 07-JUL-2019 21:38, MANUAL COMPARISON REQUIRED, DATA IS UNCONFIRMED Confirmed by ROMAIN MORSE, NANI ([id number]), editorial writer OG FUNES ([id number]) on 07/11/2019 12:02:06 PM Referred By: LIYAH Confirmed By:NANI HOYOS MD
[2019-07-08] MEDS: 0.9% Saline Lock 10 ML Syringe IV (01:12)
[2019-07-08] MEDS: Potassium Chloride 40 MEQ in 0.45% Normal Saline 1,000 ML 100 MEQ IV (01:12)
[2019-07-08] MEDS: Aspirin E.C. 81 MG Tablet PO (04:57)
[2019-07-08 05:02] LABS: Anion Gap 8 (5-15); BUN 11 mg/dL (7-18); Calcium,Total 8.4 mg/dL (8.5-10.1); Chloride 110 mmol/L (98-107); Cholesterol 239 mg/dL (200); Creatinine, Serum 0.73 mg/dL (0.55-1.02); EST Glomerular Filtration Rate 83 mL/min (>60); Est Glom Filt Rate - Afr Amer 101 mL/min (>60); Estimated Creatinine Clearance 44.56 ml/min; Glucose 85 mg/dL (74-106); High Density Lipoprotein 59 mg/dL; Sodium Level 143 mmol/L (136-145); Triglycerides 153 mg/dL; Very Low Density Lipoprotein 31 mg/dL (5-40)
--- NOTE | 2019-07-08 09:59 | STRESSREP ---
Stress Test Report Pharmacologic myocardial perfusion stress test. 69-year-old lady with a history of chest pain. Stress protocol: Resting EKG demonstrates normal sinus rhythm with a rate of 71 bpm normal intervals are noted resting blood pressures 148/70 mmHg. 0.4 mg of regadenoson was infused per usual protocol followed by rapid intravenous and flush injection continuous EKG monitoring was performed. The maximum heart rate attained was 100 bpm which was 67% maximum predicted heart rate the maximum workload was 1 metabolic equivalent. The resting blood pressures 148/70 with a final blood pressure 140/70 mmHg. Myocardial perfusion protocol. 10.0 mCi of technetium 99m sestamibi was injected at rest. 0.4 mg of regadenoson was infused per usual protocol peak infusion 33.0 mCi of technetium 99m sestamibi was injected stress images were obtained stress and rest images were reconstructed and compared in the short axis vertical long horizontal long axis. Gated images were also obtained Perfusion SPECT analysis: Review of the stress images demonstrate normal uptake of tracer noted in all areas of the myocardium the resting images similar demonstrate normal uptake of tracer noted in all areas of myocardium. No areas of reversibility are noted suggest ischemia. Gated SPECT analysis: The gated ejection fraction is noted to be 89%. Conclusion: Normal pharmacologic myocardial perfusion stress test. Preserved ejection fraction.
[2019-07-08] MEDS: Citalopram 10 MG Tablet PO (10:14)
[2019-07-08] MEDS: Pantoprazole Sodium 20 MG Tablet PO (10:15)
--- NOTE | 2019-07-08 10:33 | PCM.DC ---
- Discharge Diagnoses Current Active Problems: Current Active and Chronic Problems (Last Updated 07/07/19 @ 23:39 by Anthony Garcia MD) Chest pain (Acute) You will use the following diet at home:: Cardiac Your food should be the consistency of: Regular Discharge Activity: May Not Drive - for 1 week and F/U PCP Call your doctor if you observe: Fever of 101 or Higher, Numbness or Tingling, Change in Color, Inability to urinate, Shortness of breath, Dizziness, Fainting spells, Swelling in the ankles, Chest pain, Increased palpitations (irregular heartbeat), Uncontrolled pain Allergies/Adverse Reactions: Allergies adhesive Allergy (Verified 07/07/19 21:50) Rash metaxalone [From Skelaxin] Allergy (Verified 07/07/19 21:50) Rash tramadol Allergy (Verified 07/07/19 21:50) Itching amitriptyline Adverse Reaction (Verified 07/07/19 21:50) Mucosal lesions budesonide [From Symbicort] Adverse Reaction (Verified 07/07/19 21:50) Mucosal lesions clarithromycin [From Biaxin] Adverse Reaction (Verified 07/07/19 21:50) Upset Stomach erythromycin base Adverse Reaction (Verified 07/07/19 21:50) Upset Stomach formoterol fumarate [From Symbicort] Adverse Reaction (Verified 07/07/19 21:50) Mucosal lesions naproxen Adverse Reaction (Verified 07/07/19 21:50) Upset Stomach Medications to take at Discharge Calcium Carbonate [Calcium] 600 mg PO DAILY 08/17/15 Co Q10 200 [Co Q-10] 200 mg PO DAILY 08/17/15 Ergocalciferol [Vitamin D] 1.25 mg PO Q7D 08/17/15 Estradiol 1 mg PO DAILY 08/17/15 Fish Oil/Borage/Flax/Om3,6,9 1 [[place] 3-6-9 1,200 mg Softgel] 1,200 mg PO DAILY 08/17/15 Multivitamin [Daily Multiple Vitamin] 1 each PO DAILY 08/17/15 Omeprazole 20 mg PO BID 08/17/15 Cholecalciferol (Vitamin D3) [Vitamin D3] 1,000 unit PO DAILY 07/07/19 Citalopram Hydrobromide [Citalopram HBr] 10 mg PO DAILY 07/07/19 Magnesium Oxide [Magnesium] 400 mg PO DAILY 07/07/19 Zolpidem Tartrate 10 mg PO DAILY 07/07/19 Atorvastatin Calcium 40 mg PO QHS #30 tab 07/08/19 Primary Care Physician: Reed Cuenca Chi, MD [Primary Care Provider] - Please follow up with your Primary Care Physician in: IN 2 Weeks. May need EGD for GERD Test Results: Test results from this visit will be discussed in further detail at your follow-up appointment, if applicable.
--- NOTE | 2019-07-08 10:36 | DS.PCM_ITS ---
Discharge Date and Diagnosis Date of Admission: 07/07/19 Date of Discharge: 07/08/19 - Primary Discharge Diagnosis Active and Suspected Problems (Last Updated 07/07/19 @ 23:39 by Anthony Garcia MD) Chest pain (Acute) Hospital Course and Treatment Imaging Results: 07/08/19 05:55 Nuclear Stress Test - Chemical [NM] AM (NON MEDS) Summary of Care Provided: The patient is a 69 year old F with history of GERD and hypertension was admitted with retrosternal chest pain from neck to epigastrium. Patient was admitted in PCU. Serial troponin enzymes were negative. EKG shows normal sinus rhythm. Patient had myocardial nuclear perfusion stress test and reported normal. No areas of reversibility noted to suggest ischemia. Gated EF 89%. Electrolytes within normal limit. Fasting lipid profile triglyceride 153, total cholesterol 239, LDL 149. [] Patient also has history of chronic headache and she takes Tylenol as needed for headache. Currently does not have a headache. Her other chronic symptoms of anxiety/depression and insomnia are well controlled. Patient is on omeprazole 20 mg twice daily for GERD. Advised to see PCP in 1 to 3 weeks and referral for EGD. Discharge medication reconciliation done. Discharge follow-up instructions completed. Discharge process discussed with the patient and all questions were answered to patient's satisfaction. Prescription for atorvastatin 40 mg daily sent to patient's pharmacy. Total time spent, exact 35 minutes on discharge meds reconciliation, examination, review of imaging and blood test and discussion with the patient on follow-up instructions. Subjective: Seen and examined. Patient has chronic GERD. She says that she felt pain in retrosternal area from neck to epigastrium along with vomiting 1 time.. Denies associated shortness of breath, diaphoresis. Chest pain was localized. Denies history of coronary artery disease, CHF or arrhythmia. Stress test 2014 was unremarkable. - Physical Exam Vitals/I&O's: Vital Signs Temp Pulse Resp BP Pulse Ox 98.2 F 73 17 140/64 H 96 07/08/19 07:50 07/08/19 07:50 07/08/19 07:50 07/08/19 07:50 07/08/19 07:50 Oxygen Delivery Method Room Air Weight: 151 lb 3.794 oz Body Mass Index (BMI) 25.9 Intake and Output for Last 24 Hours 07/06/19 07/07/19 07/08/19 23:59 23:59 23:59 Intake Total 730 / 730 Balance 730 / 730 General: Alert, Oriented x3, Cooperative HEENT: Atraumatic, PERRLA, EOMI, Normocephalic Neck: Supple, No JVD, Negative Carotid Bruits Lungs: Clear to auscultation, Normal air movement, No rhonchi, No wheeze, No rales Cardiovascular: Regular rate, Regular Rhythm, Normal S1, Normal S2, No murmurs Abdomen: Bowel Sounds Present, Soft, Non Tender, Non-Distended Extremities: No edema, Capillary Refill Less than 3 Seconds Skin: No rashes, No breakdown Musculoskeletal: No Tenderness to Palpation of Joints or Extremities Neurological: Cranial nerves II-XII grossly intact Psych/Mental Status: Normal Affect, Appropriate Laboratory Results 07/07/19 21:41: WBC 6.4, RBC 3.93 L, Hgb 11.7 L, Hct 35.8 L, MCV 91.1, MCH 29.8, MCHC 32.7, RDW Std Deviation 48.4 H, RDW Coeff of Darlene 14.4, Plt Count 207, MPV 10.5, Immature Gran % (Auto) 0.300, Neut % (Auto) 52.8, Lymph % (Auto) 34.9, [place] % (Auto) 9.0, Eos % (Auto) 2.2, Baso % (Auto) 0.8, Absolute Neuts (auto) 3.4, Absolute Lymphs (auto) 2.24, Nucleated RBC % 0 07/07/19 21:41: Sodium 143, Potassium 3.6, Chloride 110 H, Carbon Dioxide 24.0, Anion Gap 9, BUN 13, Creatinine 0.87, Estim Creat Clear Calc 51.22, Est GFR (MDRD) Af Amer 82, Est GFR (MDRD) Non-Af 68, BUN/Creatinine Ratio 14.9, Glucose 97, Calcium 8.3 L, Troponin I < 0.015 07/08/19 00:50: Troponin I < 0.015 07/08/19 04:20: Troponin I < 0.015 07/08/19 04:20: Sodium 143, Potassium 4.0, Chloride 110 H, Carbon Dioxide 25.0, Anion Gap 8, BUN 11, Creatinine 0.73, Estim Creat Clear Calc 44.56, Est GFR (MDRD) Af Amer 101, Est GFR (MDRD) Non-Af 83, BUN/Creatinine Ratio 15.0, Glucose 85, Calcium 8.4 L, Triglycerides 153, Cholesterol 239 H, LDL Cholesterol 149 H, VLDL Cholesterol 31, HDL Cholesterol 59 Current Medications Aspirin (Ecotrin) 81 mg PO DAILY@0800 [facility] Last Admin: 07/08/19 04:57 Dose: 81 mg Documented by: Calcium Carbonate (Tums) 500 mg PO DAILY [facility] Last Admin: 07/08/19 10:16 Dose: Not Given Documented by: Cholecalciferol (Vitamin D) 1,000 unit PO DAILY [facility] Last Admin: 07/08/19 10:15 Dose: Not Given Documented by: Citalopram Hydrobromide (Celexa) 10 mg PO DAILY [facility] Last Admin: 07/08/19 10:14 Dose: 10 mg Documented by: Dextrose (D50w Syringe) 0 gm IV X1 PRN; Protocol PRN Reason: Hypoglycemia Estradiol (Estrace (G)) 1 mg PO DAILY [facility] Last Admin: 07/08/19 10:15 Dose: Not Given Documented by: Glucagon () 1 mg IM .X1 PRN PRN Reason: Hypoglycemia Magnesium Oxide (Mag-Ox 400) 400 mg PO DAILY [facility] Last Admin: 07/08/19 10:15 Dose: Not Given Documented by: Multivitamins (Multivitamin) 1 tablet PO DAILYCM [facility] Last Admin: 07/08/19 10:14 Dose: Not Given Documented by: Ondansetron HCl (Zofran) 4 mg IV Q8H PRN PRN PRN Reason: NAUSEA/VOMITING Pantoprazole Sodium (Protonix) 20 mg PO BID [facility] Last Admin: 07/08/19 10:15 Dose: 20 mg Documented by: Sodium Chloride () 10 - 40 ml IV UD PRN PRN Reason: SALINE FLUSH Last Admin: 07/08/19 01:12 Dose: 10 ml Documented by: Zolpidem Tartrate (Ambien (Generic)) 5 mg PO DAILY@2200 [facility] Discharge Activity: May Not Drive - for 1 week and F/U PCP Call your doctor if you observe: Fever of 101 or Higher, Numbness or Tingling, Change in Color, Inability to urinate, Shortness of breath, Dizziness, Fainting spells, Swelling in the ankles, Chest pain, Increased palpitations (irregular heartbeat), Uncontrolled pain Home Medications: Medications to take at Discharge Calcium Carbonate [Calcium] 600 mg PO DAILY 08/17/15 Co Q10 200 [Co Q-10] 200 mg PO DAILY 08/17/15 Ergocalciferol [Vitamin D] 1.25 mg PO Q7D 08/17/15 Estradiol 1 mg PO DAILY 08/17/15 Fish Oil/Borage/Flax/Om3,6,9 1 [[place] 3-6-9 1,200 mg Softgel] 1,200 mg PO DAILY 08/17/15 Multivitamin [Daily Multiple Vitamin] 1 each PO DAILY 08/17/15 Omeprazole 20 mg PO BID 08/17/15 Cholecalciferol (Vitamin D3) [Vitamin D3] 1,000 unit PO DAILY 07/07/19 Citalopram Hydrobromide [Citalopram HBr] 10 mg PO DAILY 07/07/19 Magnesium Oxide [Magnesium] 400 mg PO DAILY 07/07/19 Zolpidem Tartrate 10 mg PO DAILY 07/07/19 Atorvastatin Calcium 40 mg PO QHS #30 tab 07/08/19 Following Prescrptions Were Given to Patient: Atorvastatin Calcium 40 mg PO QHS #30 tab Transmission Status: Received by [facility]/pharmacy #[id number] Primary Care Physician: Reed Cuenca Chi, MD [Primary Care Provider] - Please follow up with your Primary Care Physician in: IN 2 Weeks. May need EGD for GERD Medical Necessity - Tobacco Use Smoking Status: Never smoker Meaningful Use Info Meaningful Use Diagnoses (Choose all that apply): None applicable Code Visit OBSV E&M: 06689 Observation care discharge
== END 2019-07-08 10:36 | disposition home or self-care (01) ==
LOC: ED 22:46 → PCU 23:05
PROVIDERS: Admitting Provider Hospitalist; Emergency Provider Emergency Medicine; Family Provider Family Medicine Geriatric Medicine; PCP Family Medicine Geriatric Medicine; Visit Provider Internal Medicine
DX: R07.89 Other chest pain (principal); K21.9 Gastro-esophageal reflux disease without esophagitis; R11.2 Nausea with vomiting, unspecified; R00.2 Palpitations; I10 Essential (primary) hypertension; Z79.899 Other long term (current) drug therapy; F41.9 Anxiety disorder, unspecified; F32.9 Major depressive disorder, single episode, unspecified
CPT/HCPCS: 36415; 71046; 78452; 80048; 80061; 84484; 85025; 93005; 93017; 96360; 96361; 99218; 99285; A9500; J7030; A4216; G0378; J2785

== ENCOUNTER 2019-07-14 10:32 | Day surgery (SDC) | payer MEDICARE, SELFPAY ==
[2019-07-08 00:21] VITALS: BMI 25.9
[2019-07-14 10:55] VITALS: BP 138/56; PULSE 70; RESP 15; TEMP 36.6; O2SAT 97; BMI 25.3
[2019-07-14] MEDS: Lactated Ringers 1,000 ML 100 ML IV (11:17)
[2019-07-14] MEDS: Tetracaine 0.5% Ophthalmic Bottle 1 DRP OP (12:32)
[2019-07-14] MEDS: Povidone Iodine 30 ML Opthalmic Sol 1 DRP (12:40)
--- NOTE | 2019-07-14 13:15 | DCINST_ITS ---
Allergies/Adverse Reactions: Allergies adhesive Allergy (Verified 07/14/19 10:54) Rash metaxalone [From Skelaxin] Allergy (Verified 07/14/19 10:54) Rash tramadol Allergy (Verified 07/14/19 10:54) Itching amitriptyline Adverse Reaction (Verified 07/14/19 10:54) Mucosal lesions budesonide [From Symbicort] Adverse Reaction (Verified 07/14/19 10:54) Mucosal lesions clarithromycin [From Biaxin] Adverse Reaction (Verified 07/14/19 10:54) Upset Stomach erythromycin base Adverse Reaction (Verified 07/14/19 10:54) Upset Stomach formoterol fumarate [From Symbicort] Adverse Reaction (Verified 07/14/19 10:54) Mucosal lesions naproxen Adverse Reaction (Verified 07/14/19 10:54) Upset Stomach Medications to take at Discharge Calcium Carbonate [Calcium] 600 mg PO DAILY 08/17/15 Co Q10 200 [Co Q-10] 200 mg PO DAILY 08/17/15 Estradiol 1 mg PO DAILY 08/17/15 Fish Oil/Borage/Flax/Om3,6,9 1 [[place] 3-6-9 1,200 mg Softgel] 1,200 mg PO BID 08/17/15 Multivitamin [Daily Multiple Vitamin] 1 each PO DAILY 08/17/15 Omeprazole 20 mg PO BID 08/17/15 Cholecalciferol (Vitamin D3) [Vitamin D3] 1,000 unit PO DAILY 07/07/19 Citalopram Hydrobromide [Citalopram HBr] 10 mg PO DAILY 07/07/19 Magnesium Oxide [Magnesium] 400 mg PO DAILY 07/07/19 Zolpidem Tartrate 10 mg PO QHS 07/07/19 Cataract Instructions: -Take a pain reliever such as Tylenol, Aspirin or Ibuprofen if needed for eye aching or pain. If this is not enough relief for you pain, call your doctor (or the doctor infection control specialist), even at night. -You are scheduled for a follow-up appointment at [facility] the day after surgery. You should have someone drive you. -Transient pain and irritation are due to the incision that was made at the time of surgery and do not indicate any trouble. Our office numbers are . If there is no answer, or if it is after our normal business hours, call your surgeon. My home phone number is: Dr. Alma Goldberg INSTRUCTIONS FOLLOWING TOPICAL ANESTHETIC CATARACT SURGERY Protect operated eye with glasses or metal shield at all times. Instill one drop of Polytrim (or other antibiotic drop), one drop of Prednisolone and one drop of Acular in the operated eye four times a day (b reakfast, lunch, dinner, and bedtime) until the doctor tells you to quit or decrease them. Wait 3-5 minutes between each drop. Please begin these immediately upon arriving at home. if your surgery is in t he afternoon, try to use the drops at least three more times the day of surgery and again the following morning before your appointment. INSTRUCTIONS FOLLOWING RETROBULBAR CATARACT SURGERY Keep the eye patch and metal shield on until you see your surgeon the day after surgery - these will be removed in the office that day. Do not drive while the patch is on your eye. You will be instructed about the use of drops for the operated eye at that visit. Primary Care Physician: Reed Cuenca Chi, MD [Primary Care Provider] -
--- NOTE | 2019-07-14 13:15 | PCM.OPRPT ---
Report of Operation Date of Procedure: 07/14/19 Pre-Operative Diagnosis: cataract left eye Post-Operative Diagnosis: same Surgery/Procedure Performed:: pem iol os Description of Surgical Findings:: Indications for Procedure: This is a 69 yo female with history of worsening vision in the left eye due to cataract. After discussion of risks, benefits, and alternatives of surgery the patient agreed to proceed with cataract extraction with intraocular lens implant. Description of Procedure: The patient was brought to the operating room where a time out was performed prior to the start of the procedure. Anesthesia team induced light sedation. The eye was prepped and draped in the usual sterile fashion for eye surgery. A amy blade was used to create a paracentesis incision. Preservative free lidocaine, followed by viscoelastic. A keratome was used to create a clear corneal biplanar incision at the temporal limbus. A cystotome was used to begin the capsulorhexis which was completed in a continuous curvilinear fashion with forceps. BSS on silver cannula was used to hydrate beneath the lens capsule until it was noted to be freely mobile. Phacoemulsification was used to remove the lens in a divide and conquer technique. The remaining cortical material was removed using irrigation and aspiration. The capsular bag was intact and inflated with provisc. A tecnis PCBOO 15.0 diopter lens was placed into the capsular bag. The viscoelastic was removed using aspiration. The wounds were hydrated and noted to be watertight at the conclusion of the case. The patient was instructed to follow up in the clinic the following day. Type of Anesthesia:: MAC and Topical Anesth Estimated Blood Loss (mL): none - Complications none - Admit VTE Documentation Reason prophylaxis not ordered:: Treatment Not Indicated - patient can ambulate
[2019-07-14 13:16] VITALS: BP 133/76; BP 138/56; PULSE 77; RESP 14; TEMP 36.4; O2SAT 95
[2019-07-14 13:21] VITALS: BP 138/56; BP 145/69; PULSE 73; RESP 14; O2SAT 94
[2019-07-14 13:26] VITALS: BP 128/66; BP 138/56; PULSE 73; RESP 14; O2SAT 95
[2019-07-14 13:31] VITALS: BP 133/67; BP 138/56; PULSE 70; RESP 14; TEMP 36.4; O2SAT 97
== END 2019-07-14 14:21 | disposition home or self-care (01) ==
LOC: SDC 10:34 → AC 10:34
PROVIDERS: Family Provider Family Medicine Geriatric Medicine; PCP Family Medicine Geriatric Medicine; Referring Provider Ophthalmology; Visit Provider Ophthalmology
DX: H26.9 Unspecified cataract (principal); I10 Essential (primary) hypertension; E78.2 Mixed hyperlipidemia; M79.7 Fibromyalgia; M19.90 Unspecified osteoarthritis, unspecified site; M54.9 Dorsalgia, unspecified; G89.29 Other chronic pain; M85.80 Other specified disorders of bone density and structure, unspecified site; E55.9 Vitamin D deficiency, unspecified; K21.9 Gastro-esophageal reflux disease without esophagitis; G47.00 Insomnia, unspecified; F33.0 Major depressive disorder, recurrent, mild; F41.9 Anxiety disorder, unspecified; Z79.899 Other long term (current) drug therapy; Z78.0 Asymptomatic menopausal state
CPT/HCPCS: 00142; 66984; J7120

== ENCOUNTER 2019-07-28 10:24 | Day surgery (SDC) | payer MEDICARE, SELFPAY ==
[2019-07-28 10:59] VITALS: BP 128/54; PULSE 72; RESP 15; TEMP 36.6; O2SAT 96; BMI 25.8
[2019-07-28] MEDS: Lactated Ringers 1,000 ML 100 ML IV (11:15)
[2019-07-28] MEDS: Tetracaine 0.5% Ophthalmic Bottle 1 DRP OP (12:15)
[2019-07-28] MEDS: Povidone Iodine 30 ML Opthalmic Sol 1 DRP (12:20)
--- NOTE | 2019-07-28 12:52 | PCM.DC.CATCL ---
Allergies/Adverse Reactions: Allergies adhesive Allergy (Verified 07/28/19 10:57) Rash metaxalone [From Skelaxin] Allergy (Verified 07/28/19 10:57) Rash tramadol Allergy (Verified 07/28/19 10:57) Itching amitriptyline Adverse Reaction (Verified 07/28/19 10:57) Mucosal lesions budesonide [From Symbicort] Adverse Reaction (Verified 07/28/19 10:57) Mucosal lesions clarithromycin [From Biaxin] Adverse Reaction (Verified 07/28/19 10:57) Upset Stomach erythromycin base Adverse Reaction (Verified 07/28/19 10:57) Upset Stomach formoterol fumarate [From Symbicort] Adverse Reaction (Verified 07/28/19 10:57) Mucosal lesions naproxen Adverse Reaction (Verified 07/28/19 10:57) Upset Stomach Medications to take at Discharge Calcium Carbonate [Calcium] 600 mg PO DAILY 08/17/15 Co Q10 200 [Co Q-10] 200 mg PO DAILY 08/17/15 Estradiol 1 mg PO DAILY 08/17/15 Fish Oil/Borage/Flax/Om3,6,9 1 [[place] 3-6-9 1,200 mg Softgel] 1,200 mg PO BID 08/17/15 Multivitamin [Daily Multiple Vitamin] 1 each PO DAILY 08/17/15 Omeprazole 20 mg PO BID 08/17/15 Cholecalciferol (Vitamin D3) [Vitamin D3] 1,000 unit PO DAILY 07/07/19 Citalopram Hydrobromide [Citalopram HBr] 10 mg PO DAILY 07/07/19 Magnesium Oxide [Magnesium] 400 mg PO DAILY 07/07/19 Zolpidem Tartrate 10 mg PO QHS 07/07/19 Cataract Instructions: -Take a pain reliever such as Tylenol, Aspirin or Ibuprofen if needed for eye aching or pain. If this is not enough relief for you pain, call your doctor (or the doctor product applications scientist), even at night. -You are scheduled for a follow-up appointment at [facility] the day after surgery. You should have someone drive you. -Transient pain and irritation are due to the incision that was made at the time of surgery and do not indicate any trouble. Our office numbers are . If there is no answer, or if it is after our normal business hours, call your surgeon. My home phone number is: Dr. Alma Goldberg INSTRUCTIONS FOLLOWING TOPICAL ANESTHETIC CATARACT SURGERY Protect operated eye with glasses or metal shield at all times. Instill one drop of Polytrim (or other antibiotic drop), one drop of Prednisolone and one drop of Acular in the operated eye four times a day (breakfast, lunch, dinner, and bedtime) until the doctor tells you to quit or decrease them. Wait 3-5 minutes between each drop. Please begin these immediately upon arriving at home. if your surgery is in t he afternoon, try to use the drops at least three more times the day of surgery and again the following morning before your appointment. INSTRUCTIONS FOLLOWING RETROBULBAR CATARACT SURGERY Keep the eye patch and metal shield on until you see your surgeon the day after surgery - these will be removed in the office that day. Do not drive while the patch is on your eye. You will be instructed about the use of drops for the operated eye at that visit. Primary Care Physician: Reed Cuenca Chi, MD [Primary Care Provider] -
--- NOTE | 2019-07-28 12:52 | PCM.OPRPT ---
Report of Operation Date of Procedure: 07/28/19 Pre-Operative Diagnosis: Cataract Right Eye Post-Operative Diagnosis: same Surgery/Procedure Performed:: PEM IOL OD Description of Surgical Findings:: Indications for procedure: This is a [age] year old female with history of worsening vision in the right eye due to cataract. After discussion of the risks, benefits, and alternatives of cataract surgery the patient agreed to proceed. Description of procedure: The patient was brought to the operating room where a time out was performed prior to the cataract surgery. The eye was prepped and draped in the usual sterile fashion for eye surgery. A side port blade was used to create a paracentesis incision at the superotemporal limbus. Preservative free lidocaine followed by viscoat was instilled into the anterior chamber. A keratome was used to create a clear corneal biplanar incision at the temporal limbus. A cystotome was used to begin the capsulorhexis and was completed in a continuous, curvilear fashion using capsulorhexis forceps. BSS on a silver cannula was hydrated beneath the lens capsule until it was noted to be freely mobile in the capsular bag. Phacoemulsification was used to remove the lens in a divide and conquer technique. The remaining cortical material was removed using irrigation and aspiration. The capsular bad was intact and inflated with provisc. A tecnis PCBOO 15.5 lens was placed into the capsular bag and adjusted using a mendoza hook. The remaining viscoelastic material was removed. The wounds were hydrated and noted to be watertight with a weck cell sponge. The patient was taken to the recovery room in stable condition with instructions to follow up in the clinic the following day. Type of Anesthesia:: MAC and Topical Anesth Estimated Blood Loss (mL): none - Complications none - Admit VTE Documentation Reason prophylaxis not ordered:: Procedure Not Indicated - patient can ambulate
[2019-07-28 12:57] VITALS: BP 128/54; BP 156/76; PULSE 75; RESP 16; TEMP 37.1; O2SAT 99
[2019-07-28 13:02] VITALS: BP 128/54; BP 151/80; PULSE 73; RESP 16; O2SAT 99
[2019-07-28 13:07] VITALS: BP 128/54; BP 150/71; PULSE 69; RESP 16; O2SAT 97
[2019-07-28 13:12] VITALS: BP 128/54; BP 153/66; PULSE 73; RESP 16; TEMP 37.2; O2SAT 95
[2019-07-28 13:57] VITALS: BP 128/54
== END 2019-07-28 13:59 | disposition home or self-care (01) ==
LOC: SDC 10:26 → AC 10:29
PROVIDERS: Family Provider Family Medicine Geriatric Medicine; PCP Family Medicine Geriatric Medicine; Referring Provider Ophthalmology; Visit Provider Ophthalmology
PROC: (CPT 66984; principal; 2019-07-28 11:50)
DX: H25.811 Combined forms of age-related cataract, right eye (principal); K21.9 Gastro-esophageal reflux disease without esophagitis; F32.9 Major depressive disorder, single episode, unspecified; F41.9 Anxiety disorder, unspecified; Z79.899 Other long term (current) drug therapy
CPT/HCPCS: 00142; 66984; J7120

== ENCOUNTER → 2019-09-15 16:35 | Outpatient (CLI) | payer MEDICARE, SELFPAY ==
--- NOTE | 2019-09-15 16:48 | RAD_ITS ---
STUDY: X-RAY - ABDOMEN/PELVIS REASON FOR EXAM: Female, 69 years old. patient states she has some low back pain, no other complaints TECHNIQUE: Frontal views of the abdomen were performed COMPARISON: None. FINDINGS: Normal visualized lung bases. There is an unremarkable bowel gas pattern. There is no demonstrated free abdominal air. The visualized liver, spleen and kidneys are grossly normal in size and morphology. Normal soft tissue structures. There is levoscoliosis and degenerative changes in the spine which are imaged separately. RAD/Abd Inc Decub and/or Erect IMPRESSION: No intestinal obstruction. Scoliosis and spondylosis. Electronically Signed: Katlyn Triana, at 18:47 EST Tel , Service support ,
--- NOTE | 2019-09-15 16:50 | RAD_ITS ---
STUDY: X-RAY - LUMBAR SPINE REASON FOR EXAM: Female, 69 years old. patient states she has some low back pain, no other complaints TECHNIQUE: 3 view(s) of the lumbar spine were obtained. COMPARISON: No prior FINDINGS: There is mild to moderate levoscoliosis of the upper lumbar spine. Lateral alignment is preserved. Mineralization is diffusely decreased. There are expected age-related changes. There are no fractures, lytic or blastic lesions. There is a benign calcified granuloma in the lower lung projecting over T10, seen on prior CT chest in 2009. RAD/Lumbar Spine 2 or 3 Views IMPRESSION: Scoliosis. Osteoporosis. Spondylosis. Electronically Signed: Katlyn Triana, at 19:56 EST Tel , Service support ,
== END ==
LOC: POLAB3 16:36 → LABSPEC 16:37 → RAD 16:46
PROVIDERS: PCP Family Medicine Geriatric Medicine; Referring Provider Family Medicine Geriatric Medicine; Visit Provider Family Medicine Geriatric Medicine
DX: N39.0 Urinary tract infection, site not specified (principal); K56.41 Fecal impaction; M47.816 Spondylosis without myelopathy or radiculopathy, lumbar region; M81.0 Age-related osteoporosis without current pathological fracture; M41.9 Scoliosis, unspecified
CPT/HCPCS: 72100; 74019; 87086

== ENCOUNTER → 2019-10-24 15:03 | Outpatient (CLI) | payer MEDICARE, SELFPAY ==
[2019-10-24 17:31] LABS: Absolute Lymphocyte Count 1.73 X10^3/uL (0.83-4.51); Absolute Neutrophil Count 4.8 X10^3/uL (2.0-7.7); Basophil# 0.04 X10^3/uL; Basophil% 0.5 % (0-1); Eosinophil# 0.07 X10^3/uL; Eosinophils% 0.9 % (0-5); Hematocrit 43.2 % (37-47); Hemoglobin 13.7 g/dL (12.0-15.0); Lymphocyte # 1.73 X10^3/ul (4.0); Lymphocyte % 23.3 % (19-41); Mean Corp Hgb Conc 31.7 g/dL (32-36); Mean Corpuscular Hgb 28.8 pg (27.0-32.0); Mean Corpuscular Volume 90.9 fL (81-99); Mean Platelet Vol. 10.3 fl (6.2-12.0); Monocyte% 9.4 % (0-10); NRBC Flagged by Analyzer 0 % (0-5); Neutrophil # 4.84 X10^3/uL (2.7-7.7); Neutrophil % 65.4 % (47-70); Platelet Count 239 K/mm3 (150-450); RBC Distribution Width CV 13.9 % (11.6-14.6); RBC Distribution Width SD 46.6 fl (35.1-43.9); Red Blood Count 4.75 M/mm3 (4.2-5.4); White Blood Count 7.4 K/mm3 (4.4-11.0)
[2019-10-24 18:01] LABS: ALB/GLOB Ratio 0.9 RATIO (0.9-2.4); AST(SGOT) 15 U/L (15-37); Alanine Aminotransfer ALT/SGPT 22 U/L (13-56); Albumin, Serum 3.4 g/dL (3.2-5.0); Alkaline Phosphatase 83 U/L (45-117); Anion Gap 8 (5-15); BUN 17 mg/dL (7-18); Calcium,Total 8.7 mg/dL (8.5-10.1); Chloride 104 mmol/L (98-107); Creatinine, Serum 0.85 mg/dL (0.55-1.02); EST Glomerular Filtration Rate 70 mL/min (>60); Est Glom Filt Rate - Afr Amer 84 mL/min (>60); Globulin 3.7 g/dL (2.2-4.2); Glucose 100 mg/dL (74-106); Potassium 3.6 mmol/L (3.5-5.1); Protein, Total 7.1 g/dL (6.4-8.2); Sodium Level 135 mmol/L (136-145); Thyroid Stim Hormone (TSH) 2.63 uIU/mL (0.358-3.74)
[2019-10-24 18:03] LABS: Vitamin D,25 Hydroxy 49.1 ng/mL
== END ==
PROVIDERS: PCP Family Medicine Geriatric Medicine; Visit Provider Family Medicine Geriatric Medicine
DX: E55.9 Vitamin D deficiency, unspecified (principal); R53.83 Other fatigue
CPT/HCPCS: 36415; 80053; 82306; 84443; 85025

== ENCOUNTER → 2019-12-28 15:16 | Outpatient (CLI) | payer MEDICARE, SELFPAY ==
--- NOTE | 2019-12-28 15:25 | RAD_ITS ---
STUDY: X-RAY - PELVIS AND BILATERAL HIPS REASON FOR EXAM: Female, 69 years old. bilateral chronic hip pain -- NKI TECHNIQUE: AP view of the pelvis.? 2 views of the right hip, and 2 views of the left hip were obtained. COMPARISON: Previous study of 10/26/2012 FINDINGS: There is a non-specific bowel gas pattern. Normal visualized soft tissue structures. Normal bilateral iliac wings, sacroiliac joints and visualized sacrum. Normal bilateral superior and inferior pubic rami. Normal pubic symphysis. Normal bilateral ischial tuberosities. There are mild osteoarthritic changes of the left and right hips. No lytic or blastic osseous changes are seen. RAD/Hips B/L min 2 views w/ Pelvis IMPRESSION: Mild osteoarthritic changes of the left and right hips with mild joint space narrowing bilaterally. The bony pelvis appears intact with no evidence of fracture or lytic or blastic osseous process. Electronically Signed: Raul Orellana MD at 16:33 EDT , Service support ,
== END ==
PROVIDERS: PCP Family Medicine Geriatric Medicine; Referring Provider Family Medicine Geriatric Medicine; Visit Provider Family Medicine Geriatric Medicine
DX: M25.559 Pain in unspecified hip (principal)
CPT/HCPCS: 73521

== ENCOUNTER 2020-03-30 11:39 | Emergency (ER) | payer MEDICARE, SELFPAY ==
[2020-03-30 11:39] VITALS: BP 138/84; PULSE 82; RESP 18; TEMP 36.4; O2SAT 98; BMI 25.7
--- NOTE | 2020-03-30 11:57 | RAD_ITS ---
STUDY: X-RAY - RIGHT SHOULDER REASON FOR EXAM: Female, 70 years old. Pain x1 week after trying to push a washing machine. TECHNIQUE: 4 view(s) of the shoulder. COMPARISON: None. FINDINGS: There is mild degenerative arthrosis of the glenohumeral articulation. There is degenerative arthrosis of the acromioclavicular joint without inferior osseous spur formation. Normal acromion. There is demineralization of the humerus and visualized osseous structures. The soft tissue structures are unremarkable. Normal visualized pulmonary apex. RAD/Shoulder min 2 Views IMPRESSION: Degenerative arthrosis of the shoulder. Electronically Signed: Lakia Ponce, at 12:17 EDT Tel , Service support ,
--- NOTE | 2020-03-30 11:57 | ED.VIS.GEN ---
History of Present Illness Chief Complaint: Upper Extremity Injury Informant: Patient Narrative: Patient presents the emergency part for the evaluation of right shoulder pain. Patient reports that 1 week ago she was pushing a wash machine back into place when she felt pain in the anterior aspect of the right shoulder. Since that time she has had painful range of motion. She states she is able to do all the motions it is just very sore. She states that she has had rotator cuff surgery in the past as well as having a shoulder dislocation. She has seen Dr. Quiroga in the past. She denies any shortness of breath or chest pain. She points to the area of the biceps tendon proximally is where she hurts. Past Medical History - Allergies and Home Meds Allergies/Adverse Reactions: Allergies adhesive Allergy (Verified 03/30/20 11:41) Rash metaxalone [From Skelaxin] Allergy (Verified 03/30/20 11:41) Rash tramadol Allergy (Verified 03/30/20 11:41) Itching amitriptyline Adverse Reaction (Verified 03/30/20 11:41) Mucosal lesions budesonide [From Symbicort] Adverse Reaction (Verified 03/30/20 11:41) Mucosal lesions clarithromycin [From Biaxin] Adverse Reaction (Verified 03/30/20 11:41) Upset Stomach erythromycin base Adverse Reaction (Verified 03/30/20 11:41) Upset Stomach formoterol fumarate [From Symbicort] Adverse Reaction (Verified 03/30/20 11:41) Mucosal lesions naproxen Adverse Reaction (Verified 03/30/20 11:41) Upset Stomach Primary Care Physician: Fredreic Quiorga DO [STAFF PHYSICIAN] - 1 Week if not improving Surgical History: hysterectomy, - - Two shoulder surgeries; foot surgery; two surgery for trigger fingers; carpal tunnel surgery; surgery for tubal ligation. Smoking Status: Never smoker - Family History Maternal Family History: Reports: Cancer - Cancer of female organs, - - Arthritis; degenerative muscular disease Paternal Family History: Reports: Heart Disease - Multiple (3)have brought us in their 20s and 30s had heart disease. Also her aunt, uncle and father had heart disease, Stroke - His father had multiple CVAs Review of Systems General: Denies: Chills, Fever, Sweats Eyes: Denies: Visual changes - bilaterally, Diplopia ENT: Denies: Rhinorrhea, Sore throat Cardiovascular: Denies: Chest pain, Palpitations Respiratory: Denies: Dyspnea, Cough, Dyspnea on exertion Gastrointestinal: Denies: Abdominal pain, Nausea, Vomiting, Diarrhea, Melena, Hematochezia Genitourinary: Denies: Dysuria, Hematuria, Frequency Musculoskeletal: Reports: Extremity Pain. Denies: Back pain Skin: Denies: Rash, Wounds Neurological: Denies: Headache, Weakness, Numbness Physical Exam Vital Signs/Narrative: Vital Signs Temp Pulse Resp BP Pulse Ox 03/30/20 11:39 97.6 F L 82 18 138/84 H 98 Inital Vital Signs reviewed: Yes General: Well nourished, Well developed, No Acute Distress Head: Normocephalic, Atraumatic Eyes: Perrl, EOMI ENT: Moist mucous membranes, No rhinorrhea Neck: Supple, Nontender Cardiovascular: Regular rate, Regular rhythm, No murmurs Respiratory: No distress, CTA bilaterally, Chest nontender Abdomen: Soft, Nontender, Nondistended, Normal bowel sounds Back: - - Patient is able to AB duct. Negative apprehension test. She is able to bring her arm across her chest. She notes soreness and pain with full range of motion but no deficits. NVI distally Extremities: Nontender, No edema Skin: Normal color, No rash Neurological: Alert, Oriented x3, Cranial nerves II-XII grossly intact, Normal Strength, Normal Sensation Psychological: Normal affect, Normal Mood Diagnostic/Tx/Re-eval Clinical Impression(s) from Imaging Studies Shoulder X-Ray 03/30/20 11:57 IMPRESSION: Degenerative arthrosis of the shoulder. Electronically Signed: Lakia Ponce, at 12:17 EDT Tel , Service support , - Medical Decision Making Patient is x-rays show degenerative arthrosis. She has full range of motion but painful. I suspect that this is more of a shoulder strain though tear cannot be ruled out. Talked about a sling and she will use it only when she is going to be up for prolonged periods due to possible frozen shoulder and other complications. I am going to encourage her to continue to give this more time and if not improving to follow-up with orthopedics. ED Disposition - Plan for ED Patient: Disposition: Home or Assisted Living Diagnosis: Right shoulder strain Instructions: ED Shoulder Sprain Prescriptions: Hydrocodone Bitart/Apap 5-325 [[place] 5MG-325MG] 1 tab PO Q6H PRN PRN 3 Days #10 tab PRN Reason: Pain Prescription Printed Referrals: Frederic Quiroga DO [STAFF PHYSICIAN] - 1 Week if not improving Additional Instructions: Please be advised that all pain medications have side effects which can include drowsiness, altered mental status/confusion, constipation and numerous other side effects. Please be careful while taking the pain medication and discontinue if side effects occur.
== END 2020-03-30 12:55 | disposition home or self-care (01) ==
LOC: ED 12:42
PROVIDERS: Emergency Provider Emergency Medicine; PCP Family Medicine Geriatric Medicine
DX: S46.911A Strain of unspecified muscle, fascia and tendon at shoulder and upper arm level, right arm, initial encounter (principal); Y93.89 Activity, other specified; Y92.9 Unspecified place or not applicable; M19.011 Primary osteoarthritis, right shoulder
CPT/HCPCS: 73030; 99283

== ENCOUNTER → 2020-04-26 13:28 | Outpatient (CLI) | payer MEDICARE, SELFPAY ==
[2020-03-30 11:39] VITALS: BMI 25.7
[2020-04-26 17:37] LABS: Absolute Lymphocyte Count 2.06 X10^3/uL (0.83-4.51); Absolute Neutrophil Count 5.2 X10^3/uL (2.0-7.7); Basophil# 0.05 X10^3/uL; Basophil% 0.6 % (0-1); Eosinophil# 0.06 X10^3/uL; Eosinophils% 0.7 % (0-5); Hematocrit 43.2 % (37-47); Hemoglobin 13.6 g/dL (12.0-15.0); Lymphocyte # 2.06 X10^3/ul (4.0); Lymphocyte % 25.2 % (19-41); Mean Corp Hgb Conc 31.5 g/dL (32-36); Mean Corpuscular Hgb 29.7 pg (27.0-32.0); Mean Corpuscular Volume 94.3 fL (81-99); Mean Platelet Vol. 10.4 fl (6.2-12.0); Monocyte# 0.77 X10^3/uL; Monocyte% 9.4 % (0-10); NRBC Flagged by Analyzer 0 % (0-5); Neutrophil % 63.9 % (47-70); Platelet Count 244 K/mm3 (150-450); RBC Distribution Width CV 12.9 % (11.6-14.6); RBC Distribution Width SD 44.7 fl (35.1-43.9); Red Blood Count 4.58 M/mm3 (4.2-5.4); White Blood Count 8.2 K/mm3 (4.4-11.0)
[2020-04-26 17:51] LABS: Vitamin D,25 Hydroxy 53.2 ng/mL
[2020-04-26 17:57] LABS: ALB/GLOB Ratio 0.8 RATIO (0.9-2.4); AST(SGOT) 26 U/L (15-37); Alanine Aminotransfer ALT/SGPT 39 U/L (13-56); Albumin, Serum 3.5 g/dL (3.2-5.0); Alkaline Phosphatase 98 U/L (45-117); Anion Gap 9 (5-15); BUN 19 mg/dL (7-18); BUN/Creat Ratio 24.8 RATIO (10-20); Calcium,Total 9.2 mg/dL (8.5-10.1); Chloride 101 mmol/L (98-107); Creatinine, Serum 0.76 mg/dL (0.55-1.02); EST Glomerular Filtration Rate 79 mL/min (>60); Est Glom Filt Rate - Afr Amer 95 mL/min (>60); Globulin 4.2 g/dL (2.2-4.2); Glucose 81 mg/dL (74-106); Potassium 4.4 mmol/L (3.5-5.1); Protein, Total 7.7 g/dL (6.4-8.2); Sodium Level 136 mmol/L (136-145); Thyroid Stim Hormone (TSH) 2.02 uIU/mL (0.358-3.74)
== END ==
PROVIDERS: PCP Family Medicine Geriatric Medicine; Visit Provider Family Medicine Geriatric Medicine
DX: E55.9 Vitamin D deficiency, unspecified (principal); I10 Essential (primary) hypertension
CPT/HCPCS: 36415; 80053; 82306; 84443; 85025

== ENCOUNTER → 2020-05-16 | Outpatient (CLI) | payer MEDICARE, SELFPAY ==
--- NOTE | 2020-05-16 15:09 | BI_ITS ---
MAMMOGRAPHY - BILATERAL SCREENING REASON FOR EXAM: Female, 70 years old. Routine annual screening examination. PERTINENT HISTORY: NO FAM HX - BX ''S UNSURE OF WHICH BREAST - BILAT KERATOSIS MARKED IN IMF TECHNIQUE: Digital bilateral breast leodan (3D mammographic acquisition) in the CC and MLO projections. 2-D mediolateral oblique (MLO) and craniocaudad (CC) views of both breasts were obtained. CAD: Full Field Digital Mammography with Computer Added Detection was performed. COMPARISON: 05/27/2018 and 05/01/2016. FINDINGS: Breast Composition: There are scattered areas of fibroglandular density. There are no dominant masses or suspicious calcifications. No other significant abnormalities are identified. BI/SCREEN MAMM (CAD) W/LEODAN BILAT IMPRESSION: Stable bilateral screening mammogram. Yearly follow-up mammogram recommended. (A) ASSESSMENT CATEGORY: BIRADS Category 2: Benign. A letter regarding these results will be sent to the patient by the facility within 30 days. Approximately 10% of breast cancers are not detected by mammography. A normal mammogram should not delay biopsy of a clinically suspicious abnormality. [id number] Electronically Signed: Lakia Ponce, at 16:35 EDT Tel , Service support ,
== END | disposition home or self-care (01) ==
LOC: OPBI 15:08
PROVIDERS: PCP Family Medicine Geriatric Medicine; Referring Provider Family Medicine Geriatric Medicine; Visit Provider Family Medicine Geriatric Medicine
DX: Z12.31 Encounter for screening mammogram for malignant neoplasm of breast (principal)
CPT/HCPCS: 77063; 77067

== ENCOUNTER → 2020-10-25 13:15 | Outpatient (CLI) | payer MEDICARE, SELFPAY ==
[2020-10-25 16:23] LABS: Absolute Lymphocyte Count 2.09 X10^3/uL (0.83-4.51); Absolute Neutrophil Count 3.4 X10^3/uL (2.0-7.7); Basophil# 0.04 X10^3/uL; Basophil% 0.6 % (0-1); Eosinophil# 0.11 X10^3/uL; Eosinophils% 1.8 % (0-5); Hemoglobin 12.2 g/dL (12.0-15.0); Lymphocyte # 2.09 X10^3/ul (4.0); Lymphocyte % 33.3 % (19-41); Mean Corp Hgb Conc 31.3 g/dL (32-36); Mean Corpuscular Hgb 28.6 pg (27.0-32.0); Mean Corpuscular Volume 91.5 fL (81-99); Mean Platelet Vol. 11.5 fl (6.2-12.0); Monocyte# 0.59 X10^3/uL; Monocyte% 9.4 % (0-10); NRBC Flagged by Analyzer 0 % (0-5); Neutrophil # 3.44 X10^3/uL (2.7-7.7); Neutrophil % 54.7 % (47-70); Platelet Count 248 K/mm3 (150-450); RBC Distribution Width SD 47.5 fl (35.1-43.9); Red Blood Count 4.26 M/mm3 (4.2-5.4); White Blood Count 6.3 K/mm3 (4.4-11.0)
[2020-10-25 16:51] LABS: Vitamin D,25 Hydroxy 46.4 ng/mL
[2020-10-25 17:11] LABS: ALB/GLOB Ratio 0.9 RATIO (0.9-2.4); AST(SGOT) 19 U/L (15-37); Alanine Aminotransfer ALT/SGPT 25 U/L (13-56); Albumin, Serum 3.2 g/dL (3.2-5.0); Alkaline Phosphatase 103 U/L (45-117); Anion Gap 7 (5-15); BUN 8 mg/dL (7-18); BUN/Creat Ratio 9.6 RATIO (10-20); Calcium,Total 8.2 mg/dL (8.5-10.1); Chloride 104 mmol/L (98-107); Creatinine, Serum 0.83 mg/dL (0.55-1.02); EST Glomerular Filtration Rate 72 mL/min (>60); Est Glom Filt Rate - Afr Amer 87 mL/min (>60); Globulin 3.7 g/dL (2.2-4.2); Glucose 95 mg/dL (74-106); Potassium 3.7 mmol/L (3.5-5.1); Protein, Total 6.9 g/dL (6.4-8.2); Sodium Level 137 mmol/L (136-145); Thyroid Stim Hormone (TSH) 2.08 uIU/mL (0.358-3.74)
== END ==
PROVIDERS: PCP Family Medicine Geriatric Medicine; Visit Provider Family Medicine Geriatric Medicine
DX: E55.9 Vitamin D deficiency, unspecified (principal); I10 Essential (primary) hypertension
CPT/HCPCS: 36415; 80053; 82306; 84443; 85025

== ENCOUNTER → 2021-04-02 10:50 | Outpatient (CLI) | payer MEDICARE, SELFPAY ==
--- NOTE | 2021-04-02 10:53 | RAD_ITS ---
STUDY: X-RAY - LUMBAR SPINE REASON FOR EXAM: Female, 71 years old. LOW BACK PAIN TECHNIQUE: 3 view(s) of the lumbar spine were obtained. COMPARISON: 09/15/2019 FINDINGS: Normal lumbar lordosis. Mild levoscoliosis centered at L3. There is a normal alignment of the vertebrae. Normal vertebral bodies and endplates. Normal disc space heights. Facet hypertrophy in the lower lumbar spine consistent with degenerative disc disease. The soft tissue structures are unremarkable. RAD/Lumbar Spine 2 or 3 Views IMPRESSION: Mild levoscoliosis with degenerative disc disease. MRI would be useful. Electronically Signed: Cristofer Murphy MD at 11:33 EDT Tel , Service support ,
--- NOTE | 2021-04-02 11:00 | RAD_ITS ---
STUDY: X-RAY - PELVIS AND RIGHT HIP REASON FOR EXAM: Female, 71 years old. HIP PAIN TECHNIQUE: 3 views of the pelvis and hip. COMPARISON: 12/28/2019 FINDINGS: There is a non-specific bowel gas pattern. Normal visualized soft tissue structures. Normal bilateral iliac wings, sacroiliac joints and visualized sacrum. Normal bilateral superior and inferior pubic rami. Normal pubic symphysis. Normal bilateral ischial tuberosities. There are osteoarthritic changes of the femoral head with marginal osteophyte formation. Normal acetabulum. There is mild articular joint space narrowing of the hip. RAD/HIP, UNI W/ Pelvis 2-3 Views IMPRESSION: Mild arthrosis. Electronically Signed: Cristofer Murphy MD at 15:20 EDT Tel , Service support ,
== END ==
PROVIDERS: PCP Family Medicine Geriatric Medicine; Referring Provider Family Medicine Geriatric Medicine; Visit Provider Family Medicine Geriatric Medicine
DX: M51.36 Other intervertebral disc degeneration, lumbar region (principal); M16.11 Unilateral primary osteoarthritis, right hip
CPT/HCPCS: 72100; 73502

== ENCOUNTER → 2021-05-02 13:31 | Outpatient (CLI) | payer MEDICARE, SELFPAY ==
[2021-05-02 16:09] LABS: Absolute Lymphocyte Count 2.21 X10^3/uL (0.83-4.51); Absolute Neutrophil Count 4.8 X10^3/uL (2.0-7.7); Basophil# 0.04 X10^3/uL; Basophil% 0.5 % (0-1); Eosinophil# 0.12 X10^3/uL; Eosinophils% 1.5 % (0-5); Hematocrit 40.7 % (37-47); Hemoglobin 13.1 g/dL (12.0-15.0); Lymphocyte # 2.21 X10^3/ul (0.83-4.51); Lymphocyte % 27.6 % (19-41); Mean Corp Hgb Conc 32.2 g/dL (32-36); Mean Corpuscular Hgb 28.7 pg (27.0-32.0); Mean Corpuscular Volume 89.1 fL (81-99); Monocyte# 0.76 X10^3/uL; Monocyte% 9.5 % (0-10); NRBC Flagged by Analyzer 0 % (0-5); Neutrophil # 4.83 X10^3/uL (2.7-7.7); Neutrophil % 60.4 % (47-70); Platelet Count 232 K/mm3 (150-450); RBC Distribution Width CV 14.5 % (11.6-14.6); Red Blood Count 4.57 M/mm3 (4.2-5.4)
[2021-05-02 16:28] LABS: Vitamin D,25 Hydroxy 44.5 ng/mL
[2021-05-02 16:37] LABS: ALB/GLOB Ratio 0.8 RATIO (0.9-2.4); AST(SGOT) 19 U/L (15-37); Alanine Aminotransfer ALT/SGPT 37 U/L (13-56); Albumin, Serum 3.3 g/dL (3.2-5.0); Alkaline Phosphatase 79 U/L (45-117); Anion Gap 6 (5-15); BUN 14 mg/dL (7-18); Calcium,Total 8.6 mg/dL (8.5-10.1); Chloride 101 mmol/L (98-107); Creatinine, Serum 0.82 mg/dL (0.55-1.02); EST Glomerular Filtration Rate 72 mL/min (>60); Est Glom Filt Rate - Afr Amer 87 mL/min (>60); Globulin 4.1 g/dL (2.2-4.2); Glucose 83 mg/dL (74-106); Potassium 3.7 mmol/L (3.5-5.1); Protein, Total 7.4 g/dL (6.4-8.2); Sodium Level 134 mmol/L (136-145); Thyroid Stim Hormone (TSH) 1.89 uIU/mL (0.358-3.74); Uric Acid 4.7 mg/dL (2.6-6.0)
== END ==
PROVIDERS: PCP Family Medicine Geriatric Medicine; Visit Provider Family Medicine Geriatric Medicine
DX: I10 Essential (primary) hypertension (principal); M10.9 Gout, unspecified; E55.9 Vitamin D deficiency, unspecified
CPT/HCPCS: 36415; 80053; 82306; 84443; 84550; 85025

== ENCOUNTER → 2021-06-21 10:56 | Outpatient (CLI) | payer MEDICARE, SELFPAY | PROVIDERS: PCP Family Medicine Geriatric Medicine; Referring Provider Family Medicine Geriatric Medicine; Visit Provider Family Medicine Geriatric Medicine | DX: R68.83 Chills (without fever) (principal) | CPT/HCPCS: 87635; 87804; 87807; C9803; U0005; U0003 ==

== ENCOUNTER → 2021-07-12 10:43 | Outpatient (CLI) | payer MEDICARE, SELFPAY | PROVIDERS: PCP Family Medicine Geriatric Medicine; Referring Provider Family Medicine Geriatric Medicine; Visit Provider Family Medicine Geriatric Medicine | DX: R68.83 Chills (without fever) (principal) | CPT/HCPCS: 87635; 87804; 87807; C9803; U0005; U0003 ==

== ENCOUNTER 2021-10-23 17:25 | Outpatient (CLI) | payer MEDICARE, SELFPAY ==
--- NOTE | 2021-10-23 17:32 | MRI_ITS ---
STUDY: MRI LEFT ANKLE WITHOUT CONTRAST REASON FOR EXAM: Left foot pain, left ankle injury 2 years ago, evaluate for flexor tendon tear. TECHNIQUE: Standardized fat and water weighted pulse sequences were obtained in all 3 orthogonal planes. COMPARISON: CT images 07/13/2018. FINDINGS: Normal subcutis adipose space. There is a small volume of fluid in the submalleolar posterior tibialis tendon sheath (inversion recovery sagittal images 4, 5). The posterior tibialis tendon is morphologically normal. Normal flexor digitorum longus tendon. Normal flexor hallucis longus tendon. Normal peroneus longus and brevis tendons. Normal tibialis anterior tendon. Normal extensor hallucis longus tendon. Normal extensor digitorum longus tendons. Normal Achilles tendon and teno-osseous insertion. Normal plantar fascia. Normal plantar calcaneal tubercles. Normal intrinsic muscles of the rearfoot. Normal distal tibiofibular syndesmotic ligamentous complex. There is mild attenuation of the anterior talofibular ligament (T2 axial image 16) suggestive of remote injury. Normal calcaneofibular and posterior talofibular ligaments. There is a ganglion cyst dorsal to the distal talus extending into the sinus tarsi (inversion recovery sagittal images 11-14) measuring 1.8 cm in AP dimension. Normal deltoid ligamentous complexes. Normal plantar calcaneonavicular (spring) ligament. Normal tibiotalar articulation. Normal talar dome. There is a small posterior subtalar joint effusion (inversion recovery sagittal image 14). Normal talonavicular articulation. Normal calcaneocuboid articulation. Normal navicular-cuneiform articulations. MRI/Lower Ext Joint Only (Routine) IMPRESSION: Mild posterior tibialis tenosynovitis. Mild attenuation of the anterior talofibular ligament suggestive of remote injury. Small posterior subtalar joint effusion. Ganglion cyst dorsal to the distal talus extending into the sinus tarsi. No demonstrated flexor tendon tear. Electronically Signed: Lloyd Dinero MD at 10:55 EDT ,
== END 2021-10-23 23:59 | disposition home or self-care (01) ==
LOC: MRI 17:26
PROVIDERS: PCP Family Medicine Geriatric Medicine; Visit Provider Podiatrist
DX: M66.372 Spontaneous rupture of flexor tendons, left ankle and foot (principal); M65.872 Other synovitis and tenosynovitis, left ankle and foot; M67.472 Ganglion, left ankle and foot
CPT/HCPCS: 73721

== ENCOUNTER 2021-10-31 13:58 | Outpatient (CLI) | payer MEDICARE, SELFPAY ==
[2021-10-31 17:06] LABS: Vitamin D,25 Hydroxy 69.6 ng/mL
[2021-10-31 17:14] LABS: Absolute Lymphocyte Count 3.15 X10^3/uL (0.83-4.51); Absolute Neutrophil Count 4.4 X10^3/uL (2.0-7.7); Basophil# 0.05 X10^3/uL; Basophil% 0.6 % (0-1); Eosinophil# 0.15 X10^3/uL; Eosinophils% 1.8 % (0-5); Hematocrit 39.8 % (37-47); Hemoglobin 12.7 g/dL (12.0-15.0); Lymphocyte # 3.15 X10^3/ul (0.83-4.51); Lymphocyte % 36.9 % (19-41); Mean Corp Hgb Conc 31.9 g/dL (32-36); Mean Corpuscular Hgb 29.3 pg (27.0-32.0); Mean Corpuscular Volume 91.9 fL (81-99); Mean Platelet Vol. 10.6 fl (6.2-12.0); Monocyte# 0.78 X10^3/uL; Monocyte% 9.1 % (0-10); NRBC Flagged by Analyzer 0 % (0-5); Neutrophil # 4.39 X10^3/uL (2.7-7.7); Neutrophil % 51.4 % (47-70); Platelet Count 239 K/mm3 (150-450); RBC Distribution Width CV 13.2 % (11.6-14.6); RBC Distribution Width SD 44.2 fl (35.1-43.9); Red Blood Count 4.33 M/mm3 (4.2-5.4); White Blood Count 8.5 K/mm3 (4.4-11.0)
[2021-10-31 17:15] LABS: AST(SGOT) 19 U/L (15-37); Alanine Aminotransfer ALT/SGPT 27 U/L (13-56); Albumin, Serum 3.8 g/dL (3.2-5.0); Alkaline Phosphatase 70 U/L (45-117); Anion Gap 7 (5-15); BUN 10 mg/dL (7-18); BUN/Creat Ratio 13.8 RATIO (10-20); Calcium,Total 8.5 mg/dL (8.5-10.1); Chloride 101 mmol/L (98-107); Creatinine, Serum 0.72 mg/dL (0.55-1.02); EST Glomerular Filtration Rate 84 mL/min (>60); Est Glom Filt Rate - Afr Amer 101 mL/min (>60); Globulin 3.7 g/dL (2.2-4.2); Glucose 73 mg/dL (74-106); Potassium 3.7 mmol/L (3.5-5.1); Protein, Total 7.5 g/dL (6.4-8.2); Sodium Level 134 mmol/L (136-145); Thyroid Stim Hormone (TSH) 1.49 uIU/mL (0.358-3.74)
== END 2021-10-31 23:59 | disposition home or self-care (01) ==
LOC: POLAB3 13:58
PROVIDERS: PCP Family Medicine Geriatric Medicine; Visit Provider Family Medicine Geriatric Medicine
DX: E55.9 Vitamin D deficiency, unspecified (principal); I10 Essential (primary) hypertension
CPT/HCPCS: 36415; 80053; 82306; 84443; 85025

== ENCOUNTER 2021-12-26 12:30 | Outpatient (RCR) | payer MEDICARE, SELFPAY ==
--- NOTE | 2021-11-28 16:15 | HP.PTEVAL ---
Patient's Visit Information ILAN HERZOG is a 71 year old F referred to Physical Therapy by Dr. Stephen Howe DPM with a diagnosis of Left Tibial Tendonitis. Date of Evaluation: 11/28/21 Physical Therapist: Latanya Conner DPT - Visit Plan Frequency: 2x /Week Duration: 4 Weeks Plan: Ultrasound as modality- Proprioception, flex and strength of LE (ankle) - Subjective Left foot-Patient reports that 3 years ago she was out picking up leaves and she had on a pair of sandals- and a snake fell out on her foot- she kicked forwards and kicked the leg of a plantar- Dr. Quiroga told her there was a crack but then later on he said maybe it was not a crack after all the swelling had gone down. She wore a brace for 14-17 months but the pain never went away. Was fitted for an Renetta Brace yesterday- she is unsure of how long it will take to get it. Pain is located on the arch and and radiates into the medial malleolus. Does have pain in the great toe from a bunion. Best: 0/10 Eases: elevated Agg: being up on it, standing, walking Worst: 8/10. Describes the pain as sharp constant pain. No N/T in the toes. 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 Had an MRI of the foot and x-rays. Trying to avoid surgery. Sleep: disturbed sometimes- will wake her up. Does not wear any orthotics but wears Crocs or tennis shoes. Does wear shoes in the house. Normally pretty active- she has no problem except for walking and stairs. No stairs at home. Fully I with all ADL's and driving. PMHx/Meds: see list in chart. - Objective Posture: FH, RS- can correct with verbal cues but does not maintain. Gait: antalgic- decreased stance on the left LE- poor heel/toe pattern. HR/TR: able without discomfort. SLS: weight shift but is unable to SLS. Flex: HS: moderate, Gastroc: severe, Soleus: severe. ROM: DF: neutral, PF: 50 degrees, Inver: 30 degrees, Ever: 30 degrees- pain with end range inversion. Observation: severe bunion. Palpation: tender along navicular bone. Sensation: WNL to gross touch bilateral. Strength: 4/5 in ankle, Knee: 4+/5, Hip: 4/5 througgout Core: fair - Balance/Special Test Scores Lower Extremity Functional Score: 34 - Goals Goal 1:: Patient will be I with HEP and progression Goal Time Frame: 4-6 Weeks Goal 2:: Patient ambulate >300 feet with a normalized gait pattern Goal Time Frame: 4-6 Weeks Goal 3:: Patient will SLS for 10 seconds without LOB and no pain Goal Time Frame: 4-6 Weeks Goal 4:: Patient will asc/desc 8 stairs recip with 1 HR Goal Time Frame: 4-6 Weeks - Rehabilitation Potential Physical Therapy Diagnosis: Patient presents with hypomobility- she has decreased LE and core strength/stabilization, proprioception, flex and muscular endurance leading to decreased balance and pain with ADL's Rehabilitation Potential: Fair - Anticipated Interventions Patient/Client Instruction: Educate patient on: Benefits of Fitness Program Therapeutic Exercise to Include: Strength training, Endurance training, Balance training, Coordination, Agility training, Body mechanics, Postural training, Flexibilty training, Gait and locomotor training, Neuromotor development, Passive ROM, Active ROM, Dynamic Lumbar Stabilization For the Purpose of:: To improve muscle performance and motor function TENS: Yes Cryotherapy (ice pack, ice massage): Yes Thermo therapy (hot pack): Yes Ultrasound (thermal/non thermal): Yes Thank you for the opportunity to evaluate your patient. For Medicare and Medicare HMO plans, please review the plan of care and approve it. It will need to be FAXED BACK to us at [phone] for Medicare purposes. For Medicare only, by signing this I certify the plan of care. Please let me know if there are questions or concerns regarding this plan of care. Physician Signature: Date:
--- NOTE | 2021-12-26 12:54 | HP.PTDCSUM ---
It has been my pleasure to treat ILAN HERZOG referred by Dr. Stephen Howe DPM, with the diagnosis of Left Tibial Tendonitis for a total of 8 visit(s). Discharge Date: Please see the following information for a summary of their discharge status. Subjective: Patient reports that she is doing better. She is able to walk further distances. The foot is still the same but not as bad. She feels that she can continue her home exercise program. L arch Pain Intensity (Out of 10): Unrated % Improvement: 60 Objective/Function: Posture: FH, RS- can correct with verbal cues but does not maintain. Gait: slightly antalgic- decreased heel/toe pattern. HR/TR: able without discomfort. SLS: 1-2 seconds with increased pain Flex: HS: moderate, Gastroc: moderate, Soleus: moderate. ROM: DF: 10, PF: 50 degrees, Inver: 30 degrees, Ever: 30 degrees- pain with end range inversion. Observation: severe bunion. Palpation: tender along navicular bone. Sensation: WNL to gross touch bilateral. Strength: 4+/5 in ankle, Knee: 4+/5, Hip: 4/5 throughout Core: fair Goal 1:: Patient will be I with HEP and progression Goal Progress: Goal Met Goal 2:: Patient ambulate >300 feet with a normalized gait pattern Goal Progress: Progressing Goal 3:: Patient will SLS for 10 seconds without LOB and no pain Goal Progress: Progressing Goal 4:: Patient will asc/desc 8 stairs recip with 1 HR Goal Progress: Progressing Plan: Ultrasound as modality- Proprioception, flex and strength of LE (ankle) If there are questions or concerns regarding this patient's physical therapy, please feel free to call me at [phone]. Thank you for the referral of this patient. Sincerely, Latanya Conner, CHATOT Balance/Gait/Functional tests - Balance/Special Test Scores Lower Extremity Functional Score: 48
== END 2021-12-26 19:00 | disposition home or self-care (01) ==
LOC: PT 12:30
PROVIDERS: PCP Family Medicine Geriatric Medicine; Referring Provider Podiatrist; Visit Provider Podiatrist
DX: M76.822 Posterior tibial tendinitis, left leg (principal)
CPT/HCPCS: 97035; 97110; 97140; 97162; 97164; 97530

== ENCOUNTER → 2022-05-05 | Outpatient (CLI) | payer MEDICARE, SELFPAY ==
[2022-05-05 16:47] LABS: Absolute Lymphocyte Count 2.32 X10^3/uL (0.83-4.51); Absolute Neutrophil Count 4.4 X10^3/uL (2.0-7.7); Basophil# 0.07 X10^3/uL; Basophil% 0.9 % (0-1); Eosinophil# 0.08 X10^3/uL; Eosinophils% 1.1 % (0-5); Hematocrit 39.6 % (37-47); Hemoglobin 12.7 g/dL (12.0-15.0); Lymphocyte # 2.32 X10^3/ul (0.83-4.51); Mean Corp Hgb Conc 32.1 g/dL (32-36); Mean Corpuscular Hgb 29.3 pg (27.0-32.0); Mean Corpuscular Volume 91.2 fL (81-99); Monocyte# 0.65 X10^3/uL; Monocyte% 8.7 % (0-10); NRBC Flagged by Analyzer 0 % (0-5); Neutrophil # 4.35 X10^3/uL (2.7-7.7); Neutrophil % 58.2 % (47-70); Platelet Count 232 K/mm3 (150-450); RBC Distribution Width CV 13.9 % (11.6-14.6); RBC Distribution Width SD 46.5 fl (35.1-43.9); Red Blood Count 4.34 M/mm3 (4.2-5.4); White Blood Count 7.5 K/mm3 (4.4-11.0)
[2022-05-05 17:06] LABS: Vitamin D,25 Hydroxy 40.6 ng/mL
[2022-05-05 17:19] LABS: ALB/GLOB Ratio 0.9 RATIO (0.9-2.4); AST(SGOT) 16 U/L (15-37); Alanine Aminotransfer ALT/SGPT 23 U/L (13-56); Albumin, Serum 3.4 g/dL (3.2-5.0); Alkaline Phosphatase 78 U/L (45-117); Anion Gap 8 (5-15); BUN 12 mg/dL (7-18); BUN/Creat Ratio 14.8 RATIO (10-20); Calcium,Total 8.4 mg/dL (8.5-10.1); Chloride 102 mmol/L (98-107); Creatinine, Serum 0.81 mg/dL (0.55-1.02); EST Glomerular Filtration Rate 74 mL/min (>60); Est Glom Filt Rate - Afr Amer 89 mL/min (>60); Globulin 3.6 g/dL (2.2-4.2); Glucose 105 mg/dL (74-106); Potassium 3.4 mmol/L (3.5-5.1); Sodium Level 136 mmol/L (136-145); Thyroid Stim Hormone (TSH) 1.52 uIU/mL (0.358-3.74); Uric Acid 5.2 mg/dL (2.6-6.0)
== END | disposition home or self-care (01) ==
LOC: POLAB3 13:05
PROVIDERS: PCP Family Medicine Geriatric Medicine; Visit Provider Family Medicine Geriatric Medicine
DX: I10 Essential (primary) hypertension (principal); E55.9 Vitamin D deficiency, unspecified; M10.9 Gout, unspecified
CPT/HCPCS: 80053; 82306; 84443; 84550; 85025

== ENCOUNTER → 2022-05-13 | Outpatient (CLI) | payer MEDICARE, SELFPAY ==
--- NOTE | 2022-05-13 09:26 | RAD_ITS ---
STUDY: X-RAY - ESOPHAGUS (BARIUM SWALLOW) WITH FLUOROSCOPY REASON FOR EXAM: Female, 72 years old. DYSPHAGIA TECHNIQUE: 17 view(s) of the esophagus were obtained following swallowing of barium. FLUOROSCOPY TIME (if supplied): (29 seconds) minutes/seconds COMPARISON: None. FINDINGS: There is no demonstrated esophageal foreign body. There is no demonstrated stricture or mucosal abnormality. There is evidence of a moderate-sized paraesophageal hernia. No evidence of gastroesophageal reflux. The patient ingested a 12 mm tablet of barium without any difficulty. Normal visualized aortic arch and descending thoracic aorta. Normal visualized pulmonary parenchyma. Normal visualized osseous structures of the thorax. RAD/Esophagus Single Contrast IMPRESSION: Moderate sized paraesophageal hernia without reflux. Electronically Signed: Ifeanyi Álvarez MD at 10:03 EDT ,
== END | disposition home or self-care (01) ==
PROVIDERS: PCP Family Medicine Geriatric Medicine; Visit Provider Otolaryngology
DX: K44.9 Diaphragmatic hernia without obstruction or gangrene (principal)
CPT/HCPCS: 74220

== ENCOUNTER → 2022-05-14 | Outpatient (CLI) | payer MEDICARE, SELFPAY ==
[2022-05-14 17:54] LABS: Anion Gap 6 (5-15); BUN 11 mg/dL (7-18); BUN/Creat Ratio 13.9 RATIO (10-20); Calcium,Total 8.6 mg/dL (8.5-10.1); Chloride 106 mmol/L (98-107); Creatinine, Serum 0.79 mg/dL (0.55-1.02); EST Glomerular Filtration Rate 75 mL/min (>60); Est Glom Filt Rate - Afr Amer 91 mL/min (>60); Glucose 145 mg/dL (74-106); Potassium 3.9 mmol/L (3.5-5.1); Sodium Level 138 mmol/L (136-145)
== END | disposition home or self-care (01) ==
LOC: POLAB3 13:36
PROVIDERS: PCP Family Medicine Geriatric Medicine; Visit Provider Family Medicine Geriatric Medicine
DX: E87.6 Hypokalemia (principal)
CPT/HCPCS: 36415; 80048

== ENCOUNTER → 2022-05-15 | Outpatient (CLI) | payer MEDICARE, SELFPAY ==
--- NOTE | 2022-05-15 13:30 | BI_ITS ---
MAMMOGRAPHY - BILATERAL SCREENING REASON FOR EXAM: Female, 72 years old. Routine annual screening examination. PERTINENT HISTORY: Non-contributory. TECHNIQUE: Digital bilateral breast leodan (3D mammographic acquisition) in the CC and MLO projections. 2-D mediolateral oblique (MLO) and craniocaudad (CC) views of both breasts were obtained. CAD: Full Field Digital Mammography with Computer Added Detection was performed. COMPARISON: Comparison is made with prior examination of 05/16/2020 and 05/27/2018. FINDINGS: Breast Composition: There are scattered areas of fibroglandular density. There are no dominant masses or suspicious calcifications. Stable small benign-appearing bilateral axillary lymph nodes. No other significant abnormalities are identified. There has been no significant change since the prior study. BI/SCRN MAMM (CAD)W/LEODAN BILAT IMPRESSION: Stable bilateral screening mammogram. Yearly follow-up mammogram recommended. (A) ASSESSMENT CATEGORY: BIRADS Category 2: Benign. A letter regarding these results will be sent to the patient by the facility within 30 days. Approximately 10% of breast cancers are not detected by mammography. A normal mammogram should not delay biopsy of a clinically suspicious abnormality. [id number] Electronically Signed: Ifeanyi Álvarez MD at 14:19 EDT ,
== END | disposition home or self-care (01) ==
LOC: OPBI 13:28
PROVIDERS: PCP Family Medicine Geriatric Medicine; Visit Provider Family Medicine Geriatric Medicine
DX: Z12.31 Encounter for screening mammogram for malignant neoplasm of breast (principal)
CPT/HCPCS: 77063; 77067

== ENCOUNTER → 2023-04-02 | Outpatient (CLI) | payer MEDICARE, SELFPAY | END | disposition home or self-care (01) | LOC: POLAB3 15:08 | PROVIDERS: PCP Family Medicine Geriatric Medicine; Visit Provider Family Medicine Geriatric Medicine | DX: N39.0 Urinary tract infection, site not specified (principal) | CPT/HCPCS: 36415; 87086 ==

== ENCOUNTER → 2023-05-06 | Outpatient (CLI) | payer MEDICARE, SELFPAY ==
[2023-05-06 14:38] LABS: Absolute Lymphocyte Count 2.28 X10^3/uL (0.83-4.51); Absolute Neutrophil Count 4.1 X10^3/uL (2.0-7.7); Basophil# 0.05 X10^3/uL; Basophil% 0.7 % (0-1); Eosinophil# 0.08 X10^3/uL; Eosinophils% 1.1 % (0-5); Hematocrit 38.4 % (37-47); Hemoglobin 12.1 g/dL (12.0-15.0); Lymphocyte # 2.28 X10^3/ul (0.83-4.51); Lymphocyte % 31.4 % (19-41); Mean Corp Hgb Conc 31.5 g/dL (32-36); Mean Corpuscular Hgb 28.3 pg (27.0-32.0); Mean Corpuscular Volume 89.7 fL (81-99); Mean Platelet Vol. 10.5 fl (6.2-12.0); Monocyte# 0.67 X10^3/uL; Monocyte% 9.2 % (0-10); NRBC Flagged by Analyzer 0 % (0-5); Neutrophil # 4.14 X10^3/uL (2.7-7.7); Neutrophil % 57.2 % (47-70); Platelet Count 210 K/mm3 (150-450); RBC Distribution Width CV 13.5 % (11.6-14.6); RBC Distribution Width SD 44.7 fl (35.1-43.9); Red Blood Count 4.28 M/mm3 (4.2-5.4); White Blood Count 7.3 K/mm3 (4.4-11.0)
[2023-05-06 14:56] LABS: Vitamin D,25 Hydroxy 77.1 ng/mL
[2023-05-06 15:10] LABS: AST(SGOT) 16 U/L (15-37); Alanine Aminotransfer ALT/SGPT 19 U/L (13-56); Albumin, Serum 3.5 g/dL (3.2-5.0); Alkaline Phosphatase 80 U/L (45-117); Anion Gap 4 (5-15); BUN 15 mg/dL (7-18); BUN/Creat Ratio 19.3 RATIO (10-20); Calcium,Total 8.6 mg/dL (8.5-10.1); Chloride 105 mmol/L (98-107); Creatinine, Serum 0.78 mg/dL (0.55-1.02); EST Glomerular Filtration Rate 77 mL/min (>60); Est Glom Filt Rate - Afr Amer 93 mL/min (>60); Globulin 3.5 g/dL (2.2-4.2); Glucose 99 mg/dL (74-106); Potassium 4.4 mmol/L (3.5-5.1); Sodium Level 135 mmol/L (136-145); Thyroid Stim Hormone (TSH) 1.77 uIU/mL (0.358-3.74)
== END | disposition home or self-care (01) ==
LOC: POLAB3 14:03
PROVIDERS: PCP Family Medicine Geriatric Medicine; Visit Provider Family Medicine Geriatric Medicine
DX: I10 Essential (primary) hypertension (principal); E55.9 Vitamin D deficiency, unspecified
CPT/HCPCS: 36415; 80053; 82306; 84443; 85025

== ENCOUNTER → 2023-05-26 | Outpatient (CLI) | payer MEDICARE, SELFPAY | END | disposition home or self-care (01) | LOC: PSN 12:08 | PROVIDERS: PCP Family Medicine Geriatric Medicine; Referring Provider Family Medicine Geriatric Medicine; Visit Provider Family Medicine Geriatric Medicine | DX: R68.83 Chills (without fever) (principal) | CPT/HCPCS: 87635; 87804; 87807 ==

== ENCOUNTER 2023-09-15 11:28 | Observation (INO) | payer MEDICARE, SELFPAY ==
[2023-09-15] VITALS (12 sets, daily range): BP systolic 142–173; BP diastolic 66–94; PULSE 61–80; RESP 14–18; TEMP 35.8–36.8; O2SAT 96–99; BMI 24.7; BMI 24.3
--- NOTE | 2023-09-15 | MRI_ITS ---
STUDY: MRI BRAIN WITHOUT CONTRAST REASON FOR EXAM: Female, 73 years old. CVA, RT SIDE FACIAL DROOP, RT SIDE VISION CHANGES TECHNIQUE: Standardized multiplanar fat and water weighted pulse sequences were obtained. COMPARISON: CTA brain May 15, 2024. FINDINGS: There is mild cerebral atrophy with widening of the extra-axial spaces and ventricular dilatation. Normal white matter tracts of the supratentorial brain. There is no evidence for recent intracranial ischemia or other cause of cytotoxic edema on diffusion weighted imaging (DWI). Normal bilateral basal ganglia. Normal thalami. There is no extra-axial fluid accumulation. Normal flow voids within the major intracranial circulation suggesting patency by spin echo criteria. Normal sella turcica, pituitary gland, infundibular stalk, optic chiasm and hypothalamus. Normal tectal plate and pineal gland. Normal midbrain, angeline and medulla. Normal cerebellum. Normal basal cisterns. Normal bilateral temporal bones. Normal bilateral internal auditory canals. No demonstrated orbital abnormality, within the constraints of a routine brain study. Decreased signal left sphenoid sinus. Normal calvarium and skull base. Normal visualized soft tissue structures. Normal visualized upper cervical spine. MRI/Brain without Contrast IMPRESSION: Left sphenoid sinusitis. Possible inspissated secretions. Consider fungal infection. Otherwise Normal unenhanced MRI of the brain. Electronically Signed: Yaw Moise MD at 21:31 EST ,
--- NOTE | 2023-09-15 11:42 | CT_ITS ---
INDICATION: Neuro deficit, acute, stroke suspected EXAMINATION: CT BRAIN WITHOUT CONTRAST, CTA HEAD, AND CTA NECK TECHNIQUE: Noncontrast axial images were obtained of the brain. Subsequently, routine carotid CT angiogram protocol was performed without and with IV contrast. In addition, images were obtained of the [place] of [place]. NASCET criteria using the distal ICAs for comparison were used for evaluation of stenoses. 3D reconstructions were reviewed. A radiation dose optimization technique was used for this scan. IV Contrast dosage and agent: 100 cc of [id number] COMPARISON: No relevant prior comparison study available FINDINGS: --CTA NECK: AORTIC ARCH AND BRANCHES: Normal anatomy, patent. RIGHT CCA: Tortuous right common carotid artery traveling medially anterior to the vertebral bodies. Mild atherosclerotic calcifications in the region of the bulb without significant stenosis. RIGHT ICA: No occlusion, significant stenosis or dissection. LEFT CCA: Tortuous left common carotid artery traveling medially anterior to the vertebral bodies with minimal atherosclerotic calcifications. Mild atherosclerotic calcification in the region of the bilateral without significant stenosis. LEFT ICA: No occlusion, significant stenosis or dissection. RIGHT VERTEBRAL ARTERY: No occlusion, significant stenosis or dissection. LEFT VERTEBRAL ARTERY: No occlusion, significant stenosis or dissection. NECK SOFT TISSUES: Unremarkable. --CTA HEAD: --Anterior circulation: ICAs: Mild atherosclerotic calcifications without significant stenosis. ACAs: Absent left A1 segment which could be occluded or due to hypoplastic development. Unremarkable A2 segments. ACOM: Present. MCAs: Minimal narrowing of the right M1 segment compared to the left side without significant stenosis. --Posterior circulation: PCOMs: Patent ciaio lumite injector: origin of the left posterior cerebral artery. Unremarkable right side. BASILAR ARTERY: No significant stenosis. VERTEBRAL ARTERIES: No significant stenosis at the intradural/visualized segments. No evidence of intracranial aneurysm or vascular malformation. CT/STROKE CTA Head AND Neck W/Con IMPRESSION: 1. 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 2. Minimal narrowing of the right M1 segment without significant stenosis. 3. Otherwise no intracranial great vessel stenosis. 4. Tortuous common carotid arteries without significant stenosis. Unremarkable internal carotid arteries. 5. No definite aneurysm is seen. N.B. : The above Results were Read Back by Ankush Cruz MD to Tim Galicia MD, and understanding confirmed on 09/15/2023 12:24:49 (ET). Electronically Signed: Ankush Cruz MD at 12:35 EST ,
--- NOTE | 2023-09-15 11:42 | EDS_ITS ---
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 Medication was discontinued because she is 73 years of age. There is no history of hypertension. She does have history of GERD. She states she developed numbness to the entire right side of her body. She was unaware that she had a facial droop on the right. 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 Patient also complained of difficulty driving because of altered vision on the right eye. Patient states her prescription for eyeglasses is new. Patient denies headache, she denies trouble speech or swallowing. She denies chest pain or shortness of breath. She denies nausea or vomiting. She states the numbness on the right side of her body has resolved. Her vision has resolved as well. Patient states she drove herself. She overslept because she was concerned her symptoms may get worse. As reported she had difficulty driving because of altered vision right eye only. Prior similar symptoms: No Recent Illness/Hospitalization: No PFSH PFS Medical History (Updated 09/15/23 @ 12:[address] Tim Galicia MD) Anxiety GERD (gastroesophageal reflux disease) HTN (hypertension) Home Medications calcium carbonate 500 mg calcium (1,250 mg) chewable tablet 600 mg PO DAILY 08/17/15 [History Last Taken 09/15/23] coenzyme Q10 100 mg capsule (Co Q-10) 200 mg PO DAILY 08/17/15 [History Last Taken 09/15/23] estradiol 1 mg tablet 1 mg PO DAILY 08/17/15 [History Last Taken 09/15/23] fish, borage, flaxseed oils-omega 3,6,9 comb no.1 1,200 mg capsule (Sisters 3-6-9) 1,500 mg PO BID 08/17/15 [History Last Taken 09/15/23] omeprazole 20 mg capsule,delayed release 40 mg PO BID 08/17/15 [History Last Taken 09/15/23] cholecalciferol (vitamin D3) 25 mcg (1,000 unit) capsule 1,000 unit PO DAILY 07/07/19 [History Last Taken 09/15/23] citalopram 10 mg tablet 20 mg PO DAILY 07/07/19 [History Last Taken 09/15/23] zolpidem 10 mg tablet 10 mg PO QHS 07/07/19 [History Last Taken 09/15/23] cinnamon bark 500 mg capsule 1,000 mg PO DAILY 03/30/20 [History Last Taken 09/15/23] B.coagulan,subtilis 1 bill. cell-inulin 1 gram-vit C 15 mg chew tablet (Culturelle Probiotic-Prebiotic) 1 tab PO DAILY 09/15/23 [History Last Taken 09/15/23] ascorbic acid (vitamin C) 1,000 mg tablet,extended release (C Complex) 1,000 mg PO DAILY 09/15/23 [History Last Taken 09/15/23] buspirone 7.5 mg tablet 7.5 mg PO BID mood 09/15/23 [History Last Taken 09/15/23] flaxseed oil 1,000 mg capsule 1,000 mg PO DAILY 09/15/23 [History Last Taken 09/15/23] multivitamin (Daily Multi-Vitamin tablet) 1 tab PO DAILY supplement 09/15/23 [History Last Taken 09/15/23] potassium chloride 10 mEq tablet,extended release 10 meq PO DAILY 09/15/23 [History Last Taken 09/15/23] vitamin B complex (Super Quints B-50 tablet) 1 tab PO DAILY 09/15/23 [History Last Taken 09/15/23] Allergy/AdvReac Type Severity Reaction Status Date / Time adhesive Allergy Rash Verified 03/30/20 11:41 metaxalone [From Skelaxin] Allergy Rash Verified 03/30/20 11:41 tramadol Allergy Itching Verified 03/30/20 11:41 amitriptyline AdvReac Mucosal Verified 03/30/20 11:41 lesions budesonide [From Symbicort] AdvReac Mucosal Verified 03/30/20 11:41 lesions clarithromycin [From Biaxin] AdvReac Upset Verified 03/30/20 11:41 Stomach erythromycin base AdvReac Upset Verified 03/30/20 11:41 Stomach formoterol fumarate AdvReac Mucosal Verified 03/30/20 11:41 [From Symbicort] lesions naproxen AdvReac Upset Verified 03/30/20 11:41 Stomach Social History household members: family Smoking Status: Never smoker ROS ROS ED Constitutional Constitutional ED: Denies chills, fever(s), subjective, sweats or weakness Eyes Eyes: Reports blurry vision right and other Details: Denied visual field cut. ; Denies change in vision or diplopia ENT ENT ED: Denies ear pain, rhinorrhea or sore throat Cardiovascular Cardiovascular: Denies chest pain, palpitations or racing heartbeat Respiratory/Chest Respiratory/Chest: Denies cough, dyspnea or dyspnea on exertion Gastrointestinal Gastrointestinal: Denies abdominal pain, constipation, diarrhea, nausea or vomiting Genitourinary Genitourinary ED: Denies dysuria, hematuria or urinary frequency Musculoskeletal Musculoskeletal: Denies arthralgias, back pain or myalgias Neurologic Neurologic: Reports paresthesias; Denies headache(s) or weakness Psychiatric Psychiatric: Denies anxiety Hematologic/Lymphatic Hematologic/Lymphatic: Denies easy bleeding or easy bruising EXAM Physical Exam Const Vital Signs: 09/15/23 11:29 09/15/23 11:47 09/15/23 12:00 Temperature 96.5 F L Temperature Source Temporal Pulse Rate 80 76 Respiratory Rate 18 15 Respiratory Effort Respiratory Pattern Blood Pressure 173/90 H 151/71 H Blood Pressure Mean 117 97 Pulse Ox 99 97 99 Oxygen Delivery Method Room Air Room Air Room Air 09/15/23 12:02 09/15/23 11:55 09/15/23 12:30 Temperature Temperature Source Pulse Rate 71 73 Respiratory Rate 14 16 Respiratory Effort Normal Non-Labored Respiratory Pattern Normal Blood Pressure 151/71 H 158/66 H Blood Pressure Mean 97 96 Pulse Ox 99 98 Oxygen Delivery Method Room Air Room Air Positive well nourished and well developed General Appearance ED: well developed and NAD HEENT Reports moist mucous membranes atraumatic Nose: other Other Details: Normal. Eyes PERRL and EOMs intact bilaterally Eyes Narrative: There is no nystagmus. General Eye ED: Negative for pale conjunctiva or scleral icterus Neck no lymphadenopathy, supple and no JVD Chest Wall inspection of chest normal and palpation of chest normal Resp normal respiratory effort and clear to auscultation bilaterally Cardio no murmurs GI normal to inspection, nondistended, normoactive bowel sounds, soft to palpation, non-tender, non-distended and no masses Back/Spine no CVA tenderness Extremity normal to inspection General Extremety ED: Negative for deformity, edema or tenderness General Extremity: Negative for deformity or edema Neuro oriented x3, No CN's II-XII intact bilaterally and No no sensory deficits noted Neuro Narrative: There is a facial droop on the right which is new 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 There is a Babinski sign on the right. Patient denies prior history of stroke. Marland Coma Scale: document GCS findings Spontaneous Obeys Commands Oriented 15 Sensorium / Orientation: alert Speech: speech normal Motor Exam: strength 5/5 throughout Psych mental status grossly normal Skin no wounds General Skin Exam: jaundice Lesions: no lesions Rashes: no rashes NIHSS NIHSS Initial: 1a Level of Consciousness: 0 1b LOC Questions (Score 2 if aphasic/stupor): 0 1c LOC Commands (Only score 1st attempt): 0 2 Best Gaze (If aphasic, use reflexive mvmts.): 0 3 Visual: 0 4 Facial Palsy: 1 5 Motor Arm Right (UN = amputation/fusion): 0 5 Motor Arm Left: 0 6 Motor Leg Right: 0 6 Motor Leg Left: 0 7 Limb ataxia (Only + if out of proportion): 0 8 Sensory (Aphasia/stupor=0 or 1, coma=2): 0 9 Best Language: 0 10 Dysarthria (mute, coma=2, intubated=UN): 0 11 Extinction and Inattention (only scored if +): 0 Total Score: 1 MDM MDM MDM Narrative Medical decision making narrative: Stroke team was ordered since patient still has a mild facial droop on the right. Patient was informed of what tests were ordered and need for admission. History & Record Review Additional record(s) reviewed:: Prior ED visit and Prior labs Lab Data Attestation: I reviewed the patient's lab results. Lab results narrative: CBC is unremarkable and unchanged from prior. Labs: Laboratory Results - last 24 hr 09/15/23 09/15/23 11:40 11:46 WBC 6.8 RBC 4.80 Hgb 13.8 Hct 43.4 MCV 90.4 MCH 28.8 MCHC 31.8 L RDW Std Deviation 45.0 H RDW Coeff of Darlene 13.4 Plt Count 224 MPV 10.1 Immature Gran % (Auto) 0.400 Neut % (Auto) 52.1 Lymph % (Auto) 36.5 [place] % (Auto) 8.2 Eos % (Auto) 1.9 Baso % (Auto) 0.9 Absolute Neuts (auto) 3.6 Absolute Lymphs (auto) 2.49 Nucleated RBC % 0 PT 12.7 INR 1.0 APTT 29.1 Sodium 134 L Potassium 3.7 Chloride 104 Carbon Dioxide 28.0 Anion Gap 2 L BUN 14 Creatinine 0.78 Estim Creat Clear Calc 52.47 Est GFR (MDRD) Af Amer 92 Est GFR (MDRD) Non-Af 76 BUN/Creatinine Ratio 17.8 Glucose 93 Calcium 9.2 Troponin I High Sens 32 POC Glucose 102 Radiography Diagnostic Testing: Clinical Impression(s) from Imaging Studies Brain CT 09/15/23 11:42 IMPRESSION: 1. 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 2. No acute intracranial process. 3. If symptoms persist, MRI of the brain is recommended. Electronically Signed: Ankush Cruz MD at 12:25 EST , ADDENDUM: 09/15/23 1240 IMPRESSION: 1. 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 2. No acute intracranial process. 3. If symptoms persist, MRI of the brain is recommended. N.B. : The above Results were Read Back by Ankush Cruz MD to Tim Galicia MD, and understanding confirmed on 09/15/2023 12:34:03 (ET). Electronically Signed: Ankush Cruz MD at 12:25 EST , Head/Neck CTA 09/15/23 11:42 IMPRESSION: 1. 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 2. Minimal narrowing of the right M1 segment without significant stenosis. 3. Otherwise no intracranial great vessel stenosis. 4. Tortuous common carotid arteries without significant stenosis. Unremarkable internal carotid arteries. 5. No definite aneurysm is seen. N.B. : The above Results were Read Back by Ankush Cruz MD to Tim Galicia MD, and understanding confirmed on 09/15/2023 12:24:49 (ET). Electronically Signed: Ankush Cruz MD at 12:35 EST , ADDENDUM: 09/15/23 1242 IMPRESSION: 1. 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 2. Minimal narrowing of the right M1 segment without significant stenosis. 3. Otherwise no intracranial great vessel stenosis. 4. Tortuous common carotid arteries without significant stenosis. Unremarkable internal carotid arteries. 5. No definite aneurysm is seen. N.B. : The above Results were Read Back by Ankush Cruz MD to Tim Galicia MD, and understanding confirmed on 09/15/2023 12:24:49 (ET). Electronically Signed: Ankush Cruz MD at 12:35 EST , CT of the head without contrast independently viewed by me. There is no intracranial bleed. There is no obvious stroke noted. Awaiting formal read by radiologist. Have not heard back from [facility] either. In my opinion since patient only has a mild facial droop she would not be a candidate for thrombolytics unless the CTA revealed a significant thrombus. Received call from radiologist at 1222. 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 This would explain her right-sided Babinski sign. 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 Pulmonary. On the CTA of the head neck reveals no significant stenosis. EKG Initial EKG: Attestation: I personally reviewed and interpreted this EKG as follows: Interpretation: Sinus Rhythm (Rate is 79. EKG is normal.) Management Discussion w/another healthcare provider: Hospitalist (Hospitalist made aware of patient's history, physical exam and radiology interpretation.), Commercial Kitchen Service Technician ([facility] neurologist recommended baby aspirin and load with 300 mg of Plavix) and Radiologist (The radiologist contacted me regarding the CT without contrast in the CTA of the head and neck.) Discharge Plan Dx/Rx/DC Orders Clinical Impression: Facial droop due to acute stroke, Hx of hypercholesterolemia, Paresthesia of right upper and lower extremity, History of hypertension Disposition Disposition: Acute Care Hospital [facility]
--- NOTE | 2023-09-15 11:42 | CT_ITS ---
We are attempting to reach an attending provider to discuss findings. An addendum with communication details will be sent when the communication is complete. INDICATION: Neuro deficit, acute, stroke suspected EXAMINATION: CT BRAIN - CT Head Stroke Protocol W/O Contrast Injection TECHNIQUE: Multiple axial images were obtained of the head without intravenous contrast. A radiation dose optimization technique was used for this scan. IV Contrast dosage and agent: None. RADIATION DOSAGE (If Supplied By Facility): CTDIvol = ( 44.99 ) mGy, DLP = ( 745.49 ) mGycm COMPARISON: No relevant prior comparison study available FINDINGS: BRAIN PARENCHYMA: No intra- or extra-axial hemorrhage. Small low-density area in the inferior right basal ganglia seen on axial image 16 series 2, likely old. No intracranial mass or mass effect. There is preservation of the tucker/white matter interface. Posterior fossa structures are unremarkable. CSF SPACES: Appropriate for age. No hydrocephalus. Basal cisterns are patent. CALVARIUM, SKULL BASE, PARANASAL SINUSES AND MASTOID AIR CELLS: Mucosal thickening and opacification of the left sphenoid sinus. No discrete lytic or blastic abnormalities. ORBITS: Previous bilateral cataract surgery. CT/STROKE Brain/Head without Cont IMPRESSION: 1. 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 2. No acute intracranial process. 3. If symptoms persist, MRI of the brain is recommended. Electronically Signed: Ankush Cruz MD at 12:25 EST ,
--- NOTE | 2023-09-15 11:45 | ED.RN ---
[facility] stroke line states they had 2 cases to do prior to this patient being evaluated via tele health. No time frame given
[2023-09-15 11:52] LABS: Absolute Lymphocyte Count 2.49 X10^3/uL (0.83-4.51); Absolute Neutrophil Count 3.6 X10^3/uL (2.0-7.7); Basophil# 0.06 X10^3/uL; Basophil% 0.9 % (0-1); Eosinophil# 0.13 X10^3/uL; Eosinophils% 1.9 % (0-5); Hematocrit 43.4 % (37-47); Hemoglobin 13.8 g/dL (12.0-15.0); Lymphocyte # 2.49 X10^3/ul (0.83-4.51); Lymphocyte % 36.5 % (19-41); Mean Corp Hgb Conc 31.8 g/dL (32-36); Mean Corpuscular Hgb 28.8 pg (27.0-32.0); Mean Corpuscular Volume 90.4 fL (81-99); Mean Platelet Vol. 10.1 fl (6.2-12.0); Monocyte# 0.56 X10^3/uL; Monocyte% 8.2 % (0-10); NRBC Flagged by Analyzer 0 % (0-5); Neutrophil # 3.56 X10^3/uL (2.7-7.7); Neutrophil % 52.1 % (47-70); Platelet Count 224 K/mm3 (150-450); RBC Distribution Width CV 13.4 % (11.6-14.6); White Blood Count 6.8 K/mm3 (4.4-11.0)
--- NOTE | 2023-09-15 11:55 | ED.RN ---
[facility] stroke line called at 1143, patient back in room at 1155 and [facility] aware at that time.
[2023-09-15 12:04] LABS: Partial Thromboplast Time 29.1 Seconds (24.1-36.2); Prothrombin Time (Protime)PT. 12.7 SECONDS (11.7-14.9)
[2023-09-15 12:04] LABS: Bedside Glucose 102 mg/dL (74-106)
--- NOTE | 2023-09-15 12:17 | ED.RN ---
[facility] stroke line called for update, no exact time given as doctor still in a higher priority patient evaluation, approx 10-15 minutes was advised.
[2023-09-15 12:18] LABS: Anion Gap 2 (5-15); BUN 14 mg/dL (7-18); BUN/Creat Ratio 17.8 RATIO (10-20); Calcium,Total 9.2 mg/dL (8.5-10.1); Chloride 104 mmol/L (98-107); Creatinine, Serum 0.78 mg/dL (0.55-1.02); EST Glomerular Filtration Rate 76 mL/min (>60); Est Glom Filt Rate - Afr Amer 92 mL/min (>60); Estimated Creatinine Clearance 52.47 ml/min; Glucose 93 mg/dL (74-106); Potassium 3.7 mmol/L (3.5-5.1); Sodium Level 134 mmol/L (136-145); Troponin-I HS 32 pg/mL (3.0-54.0)
--- NOTE | 2023-09-15 12:29 | HP.PCM.HOS_ITS ---
HPI - General General Date of Admission: 09/15/23 Date of Service: 09/15/23 Chief Complaint: Transient R sided vision changes, R upper and lower extremity paresthesias, R facial droop. HPI Narrative The patient is a 73 y/o F w/ PMHx: HLD, GERD, Anxiety and Depression, Chronic insomnia who presents to the [facility] ED on 09/15/2023 with history of onset 9:30 am notable right-sided paresthesias as well as right-sided facial droop with paresthesias involving both the upper and lower extremity. Patient upon ED arrival was unaware that she had a facial droop of note. She complained also of difficulty with altered vision in her right eye which also occurred this am and is still ongoing upon arrival but improved and resolved in the ED. She does report that she has a new prescription recently for her vision and has eyeglasses. She denies any other focal neurological symptoms even drove herself to the ED for evaluation. In the ED NIH stroke scale noted to be 1 for facial palsy only. 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 [facility] teleneurology was consulted per ED physician however their note is still pending upon evaluation. ED physician has relayed that they requested a baby aspirin and a loading dose of 300 mg of Plavix be administered upon admission which was ordered. [facility] Medical History (Updated 09/15/23 @ 13:[address] Yamilet Arevalo MD) Anxiety GERD (gastroesophageal reflux disease) History of CVA (cerebrovascular accident) HTN (hypertension) Home Medications calcium carbonate 500 mg calcium (1,250 mg) chewable tablet 600 mg PO DAILY 08/17/15 [History Last Taken 09/15/23] coenzyme Q10 100 mg capsule (Co Q-10) 200 mg PO DAILY 08/17/15 [History Last Taken 09/15/23] estradiol 1 mg tablet 1 mg PO DAILY 08/17/15 [History Last Taken 09/15/23] fish, borage, flaxseed oils-omega 3,6,9 comb no.1 1,200 mg capsule (Parrott 3-6-9) 1,500 mg PO BID 08/17/15 [History Last Taken 09/15/23] omeprazole 20 mg capsule,delayed release 40 mg PO BID 08/17/15 [History Last Taken 09/15/23] cholecalciferol (vitamin D3) 25 mcg (1,000 unit) capsule 1,000 unit PO DAILY 07/07/19 [History Last Taken 09/15/23] citalopram 10 mg tablet 20 mg PO DAILY 07/07/19 [History Last Taken 09/15/23] zolpidem 10 mg tablet 10 mg PO QHS 07/07/19 [History Last Taken 09/15/23] cinnamon bark 500 mg capsule 1,000 mg PO DAILY 03/30/20 [History Last Taken 09/15/23] B.coagulan,subtilis 1 bill. cell-inulin 1 gram-vit C 15 mg chew tablet (Culturelle Probiotic-Prebiotic) 1 tab PO DAILY 09/15/23 [History Last Taken 09/15/23] ascorbic acid (vitamin C) 1,000 mg tablet,extended release (C Complex) 1,000 mg PO DAILY 09/15/23 [History Last Taken 09/15/23] buspirone 7.5 mg tablet 7.5 mg PO BID mood 09/15/23 [History Last Taken 09/15/23] flaxseed oil 1,000 mg capsule 1,000 mg PO DAILY 09/15/23 [History Last Taken 09/15/23] multivitamin (Daily Multi-Vitamin tablet) 1 tab PO DAILY supplement 09/15/23 [History Last Taken 09/15/23] potassium chloride 10 mEq tablet,extended release 10 meq PO DAILY 09/15/23 [History Last Taken 09/15/23] vitamin B complex (Super Quints B-50 tablet) 1 tab PO DAILY 09/15/23 [History Last Taken 09/15/23] Allergy/AdvReac Type Severity Reaction Status Date / Time adhesive Allergy Rash Verified 03/30/20 11:41 metaxalone [From Skelaxin] Allergy Rash Verified 03/30/20 11:41 tramadol Allergy Itching Verified 03/30/20 11:41 amitriptyline AdvReac Mucosal Verified 03/30/20 11:41 lesions budesonide [From Symbicort] AdvReac Mucosal Verified 03/30/20 11:41 lesions clarithromycin [From Biaxin] AdvReac Upset Verified 03/30/20 11:41 Stomach erythromycin base AdvReac Upset Verified 03/30/20 11:41 Stomach formoterol fumarate AdvReac Mucosal Verified 03/30/20 11:41 [From Symbicort] lesions naproxen AdvReac Upset Verified 03/30/20 11:41 Stomach Family History (Updated 09/15/23 @ 13:[address] Yamilet Arevalo MD) Mother CVA (cerebral vascular accident) Heart disease Hypertension Father CVA (cerebral vascular accident) Heart disease Hypertension Surgical History (Updated 09/15/23 @ 13:[address] Yamilet Arevalo MD) History of arthroscopic surgery of shoulder History of tonsillectomy and adenoidectomy S/P foot surgery, left S/P total abdominal hysterectomy Social History (Updated 09/15/23 @ 13:[address] Yamilet Arevalo MD) household members: significant other Smoking Status: Never smoker alcohol intake: never substance use type: does not use ROS ROS Narrative Admission Review of Systems: CONSTITUTIONAL: No weight loss, fever, chills, + weakness or fatigue. HEENT: + Very mild right-sided facial droop with nasolabial flattening which corrects with smile. Eyes: No visual loss, blurred vision, double vision or yellow sclerae. Ears, Nose, Throat: No hearing loss, sneezing, congestion, runny nose or sore throat. SKIN: No rash or itching, lesions, wounds. CARDIOVASCULAR: No chest pain, chest pressure or chest discomfort, palpitations, edema, orthopnea, syncopal events. RESPIRATORY: No shortness of breath, cough or sputum, wheezing, hemoptysis. GASTROINTESTINAL: No anorexia, nausea, vomiting or diarrhea, abdominal pain, melena, BRBPR. GENITOURINARY: No dysuria, frequency, urgency or retention. NEUROLOGICAL: + Transient right eye vision changes, paresthesias to right upper and lower extremity, right-sided very mild nasolabial flattening which could be chronic. No headache, dizziness, syncope, paralysis, ataxia, numbness or tingling in the extremities, focal weakness, change in bowel or bladder control, seizure. MUSCULOSKELETAL: + muscle, back pain, joint pain or stiffness. HEMATOLOGIC: No anemia, bleeding or bruising. LYMPHATICS: No enlarged nodes. No history of splenectomy. PSYCHIATRIC: + History of anxiety and depression. ENDOCRINOLOGIC: No reports of sweating, cold or heat intolerance. No polyuria or polydipsia. ALLERGIES: No history of asthma, hives, eczema or rhinitis. Vital Signs Vital Signs Vital Signs: 09/15/23 11:29 09/15/23 11:47 09/15/23 12:00 Temperature 96.5 F L Temperature Source Temporal Pulse Rate 80 76 Respiratory Rate 18 15 Respiratory Effort Respiratory Pattern Blood Pressure 173/90 H 151/71 H Blood Pressure Mean 117 97 Pulse Ox 99 97 99 Oxygen Delivery Method Room Air Room Air Room Air 09/15/23 12:02 09/15/23 11:55 Temperature Temperature Source Pulse Rate 71 Respiratory Rate 14 Respiratory Effort Normal Non-Labored Respiratory Pattern Normal Blood Pressure 151/71 H Blood Pressure Mean 97 Pulse Ox 99 Oxygen Delivery Method Room Air Weight Weight: 144 lb 1.6 oz Body Mass Index (BMI) 24.7 Physical Exam Narrative Physical Examination: General: Awake, alert, oriented x 3 and cooperative, seated upright in ED bed in no apparent distress. Skin: Normal color, normal turgor, no icterus, no cyanosis. HEENT: AT/NC, EOMI, PERRLA, MMM, very mild right-sided nasolabial flattening which corrects with smile, no carotid bruits or JVD noted. Lungs: CTA bilaterally, moderate effort, mild decrease BL bases, no rales, ronchi or wheezing. Heart: Regular rate and rhythm; no gallop, rub audible. Abdomen: Soft, NTTP, ND, normal BS, no HSM. Extremities: No cyanosis, clubbing, or edema. Neurological: Patient awake, alert, oriented as noted, cognitive function intact; pupils equally reactive to light and accommodation, cranial nerves grossly normal aside very mild right-sided nasolabial flattening but corrects with smile, moving all 4 extremities, no focal deficits, strength preserved, finger-nose and [id number] appropriate, sensation now normalized, unremarkable Babinski. Psychiatric: Affect appears normal, no acute evidence of depressive or anxiety feelings. Results Lab / Micro Data 09/15/23 11:40 09/15/23 11:40 Labs: Laboratory Results - last 24 hr 09/15/23 11:40: WBC 6.8, RBC 4.80, Hgb 13.8, Hct 43.4, MCV 90.4, MCH 28.8, MCHC 31.8 L, RDW Std Deviation 45.0 H, RDW Coeff of Darlene 13.4, Plt Count 224, MPV 10.1, Immature Gran % (Auto) 0.400, Neut % (Auto) 52.1, Lymph % (Auto) 36.5, Sac % (Auto) 8.2, Eos % (Auto) 1.9, Baso % (Auto) 0.9, Absolute Neuts (auto) 3.6, Absolute Lymphs (auto) 2.49, Nucleated RBC % 0, PT 12.7, INR 1.0, APTT 29.1, Sodium 134 L, Potassium 3.7, Chloride 104, Carbon Dioxide 28.0, Anion Gap 2 L, BUN 14, Creatinine 0.78, Estim Creat Clear Calc 52.47, Est GFR (MDRD) Af Amer 92, Est GFR (MDRD) Non-Af 76, BUN/Creatinine Ratio 17.8, Glucose 93, Calcium 9.2, Troponin I High Sens 32 09/15/23 11:46: POC Glucose 102 Imaging Radiology Impression Brain CT 09/15/23 11:42 IMPRESSION: 1. 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 2. No acute intracranial process. 3. If symptoms persist, MRI of the brain is recommended. Electronically Signed: Ankush Cruz MD at 12:25 EST , Assessment & Plan Assessment/Plan (1) TIA (transient ischemic attack): PLAN: Plan The patient is a 73 y/o F w/ PMHx: HLD, GERD, Anxiety and Depression, Chronic insomnia who presents to the [facility] ED on 09/15/2023 with history of onset 9:30 am notable right-sided paresthesias as well as right-sided facial droop with paresthesias involving both the upper and lower extremity. Patient upon ED arrival was unaware that she had a facial droop of note. 1. Transient right-sided paresthesias, right eye vision changes both resolved with also concurrently noted right facial droop unclear if new or old concerning for possible TIA versus CVA with evidence of prior R basal ganglia infarct: Will admit to PCU, will obtain MRI Brain, ECHO, PT/OT/Speech/Nutrition evaluation per protocol. Will allow permissive HTN, administered aspirin and Plavix loading dose as noted per teleneurology recommendation, will maintain on asa, add moderate dose statin but may need adjusted given patient issues previously she notes with statin therapies although no allergies formally listed w/ AM FLP, fall precautions. Mag, TSH, FLP, HgbA1c requested. Maintain on fall and aspiration precautions. Request Neurology consultation. Will stop estradiol. 2. Elevated BP without hypertensive diagnosis: Potentially related with acute presentation, only minimally elevated, will maintain on permissive hypertension's given #1, as needed agents per stroke protocol and once a ppropriate if necessary will add regimen. 3. Anxiety and depression/chronic insomnia: We will hold patient home zolpidem regimen as this is a significantly high dose especially in her age group, will continue patient home citalopram and buspirone but hold for sedation if needed. Will have as needed low-dose melatonin. 4. Hyperlipidemia: Adding statin as noted, FLP in AM. 5. GERD: Will maintain on home PPI. 6. DVT prophylaxis: Lovenox. 7. CODE status: Patient HCPOA and living will are not in place however she notes her daughter who is present would be her decision-maker if she was unable. Discussed CODE status at length including difference between FULL code, DNR-CCA and DNR-CC status. Following discussions about the differences in these status, requested DNR-CCA, no intubation status. Advanced Care Planning Face to Face Time: 16 minutes. Charges/Coding Visit Charges Inpatient E&M: 42202 Init Hosp L2 Procedures Hospitalists Procedures: 89043 Advncd Care Plan 30 Min
--- NOTE | 2023-09-15 12:35 | ED.RN ---
Dr. Peter De Jesus from [facility] on telestroke
--- NOTE | 2023-09-15 12:36 | ED.RN ---
Patient describes symptoms as awakening at 0700 normal, around 0930 developed right sided numbness to face moving to r arm and leg and noticed r arm and leg were weak and she had problems walking. Symptoms lasted approx 20 minutes and have since dissipated.
--- NOTE | 2023-09-15 13:44 | RAD_ITS ---
INDICATION: Neuro deficit, acute, stroke suspected EXAMINATION/TECHNIQUE: X-RAY - XR Chest 1 View COMPARISON: Prior study dated: 07/07/2019. FINDINGS: LINES/DEVICES: None. LUNGS: No consolidation, edema or effusion. No pneumothorax. MEDIASTINUM AND CARDIOVASCULAR STRUCTURES: Cardiac silhouette not enlarged. Central airways and mediastinal contour are unremarkable. BONES AND SOFT TISSUES: Retrocardiac density likely due to hiatal hernia. Mild degenerative changes of the left shoulder. RAD/Chest 1 View IMPRESSION: No radiographic evidence of acute cardiopulmonary disease. Probable hiatal hernia. Electronically Signed: Ankush Cruz MD at 13:58 EST ,
[2023-09-15] MEDS: Clopidogrel Bisulfate 300 MG Tablet PO (13:46)
[2023-09-15] MEDS: Aspirin 81 MG TAB.CHEW PO (13:46)
--- NOTE | 2023-09-15 13:48 | ED.RN ---
PATIENT HAD NOTED VERY BRIEF EPISODE OF DIZZINESS WHEN USING RESTROOM, STATES LASTED SECONDS. NOW GONE.
[2023-09-15 13:52] LABS: Magnesium 2.1 mg/dL (1.6-2.6)
--- NOTE | 2023-09-15 13:58 | ECHOD_ITS ---
Reason For Study: TIA/CVA Procedure This was a 2D Doppler, Color Flow transthoracic echocardiogram. The study was technically difficult. Exam performed portable in patient room. Left Ventricle Normal size and thickness. The left ventricular ejection fraction is 65 %. Diastolic function is indeterminate. Right Ventricle Normal right ventricle. Atria The left and right atria are normal. Bubble contrast study is negative for PFO/ASD. Mitral Valve The mitral valve is structurally normal. No prolapse or stenosis seen. Tricuspid Valve Mild tricuspid valve insufficiency. Right ventricular systolic pressure estimated to be 36 mmHg. Aortic Valve Aortic sclerosis, no stenosis. Pulmonic Valve The pulmonic valve is not well visualized. Great Vessels Calcified aortic root. Pericardium/Pleural No pericardial effusion. Medication Performed a rapid injection of agitated mix of 9 cc saline and 1cc air to assess for atrial septal defect. MMode/2D Measurements & Calculations LVIDd: 4.4 cm IVSd: 0.79 cm Ao root diam: 2.9 cm LVIDs: 2.8 cm LVPWd: 0.68 cm LA dimension: 3.2 cm RVDd: 3.0 cm FS: 35.2 % LAV(MOD-bp): 58.1 ml LVAd ap4: 23.0 cm2 LVAd ap2: 21.9 cm2 LAV(MOD-bp) Indexed: 34.4 ml/m2 LVLd ap4: 6.6 cm LVLd ap2: 6.9 cm LAV(MOD-sp2): 41.9 ml EDV(MOD-sp4): 65.0 ml EDV(MOD-sp2): 57.5 ml LAV(MOD-sp4): 73.9 ml EDV(sp4-el): 68.3 ml EDV(sp2-el): 59.1 ml LVAs ap4: 10.5 cm2 LVAs ap2: 11.4 cm2 LVLs ap4: 5.1 cm LVLs ap2: 5.9 cm ESV(MOD-sp4): 19.3 ml ESV(MOD-sp2): 19.1 ml ESV(sp4-el): 18.4 ml ESV(sp2-el): 18.7 ml EF(MOD-sp4): 70.2 % EF(MOD-sp2): 66.8 % EF(sp4-el): 73.0 % SV(MOD-sp4): 45.7 ml SV(MOD-sp2): 38.4 ml SV(sp4-el): 49.8 ml LA A4 area: 21.8 cm2 TAPSE: 2.9 cm Time Measurements MV dec time: 0.25 sec Doppler Measurements & Calculations MV E max antolin: 67.5 cm/sec Lat Peak E' Antolin: 10.6 cm/sec Med Peak E' Antolin: 6.2 cm/sec MV A max antolin: 72.5 cm/sec E/E' lat: 6.4 E/E' med: 10.9 MV E/A: 0.93 Ao V2 max: 155.3 cm/sec LV V1 max: 104.6 cm/sec MV dec slope: 280.9 cm/sec2 Ao max P.7 mmHg LV V1 max P.4 mmHg Ao V2 mean: 109.7 cm/sec LV V1 mean P.7 mmHg Ao mean P.6 mmHg LV V1 mean: 78.9 cm/sec Ao V2 VTI: 34.5 cm LV V1 VTI: 21.9 cm AV (velocity ratio): 0.64 PA V2 max: 100.7 cm/sec TR max antolin: 266.3 cm/sec PA V2 mean: 70.5 cm/sec TR max P.4 mmHg ECHO/Echo Complete Interpretation Summary The left ventricular ejection fraction is 65 %. Diastolic function is indeterminate. Bubble contrast study is negative for PFO/ASD. Right ventricular systolic pressure estimated to be 36 mmHg. Mild tricuspid valve insufficiency. Calcified aortic root. The study was technically difficult. Ordering Physician: Yamilet Arevalo Referring Physician: Reed Cuenca Chi Performed By: Esme Zaldivar, CECILIA, RVT
[2023-09-15] MEDS: 0.9% Normal Saline (1000mL) 1,000 ML 100 ML IV (14:43)
--- OUTSIDE RECORDS SUMMARY | 2023-09-15 16:00 | XMS RPT_ITS | CCD ---
Author Name Unknown Address [address] [place] [address] Organization [facility] Care Team Providers Care Engineering Documentation Specialist Name Role Phone MESERETLEE AN Unavailable Unavailable NAVI, SHERRELL-CHI Unavailable Unavailable Navi, Sherrell Chi Primary Care Provider Unavailable Primary Care Provider Unavailabl e Navi, Sherrell Chi Primary Care Provider NAVI, SHERRELL CHI Primary Care Unavailable TOMASA REYES Referring Unavailable NAVI, SHERRELL CHI Primary Care Unavailable REYNA KINNEY Attending Unavailable Allergies Allergy Classification Reported Allergen(s) Allergy Type Date of Onset Reaction(s) Facility Amitriptyline (1 source) Amitriptyline Drug Allergy 9 [facility] Work Phone: Budesonide / formoterol (1 source) Budesonide / formoterol Drug Allergy 2 Other: See Comments [facility] Macrolides (antibiotic) (3 sources) Clarithromycin Drug Allergy 2 GI Upset [facility] metaxalone (1 source) metaxalone Drug Allergy 8 [facility] Work Phone: NSAIDs (1 source) Naproxen Drug Allergy 2 [facility] Work Phone: Opioid Agonists (1 source) traMADol Drug Allergy 8 Itching [facility] Work Phone: Unclassified (4 sources) Carbamates; Translations: [CARBAMATES] Propensity to adverse reactions 2 [facility] Work Phone: (3 sources) Amitriptyline; Translations: [AMITRIPTYLINE] Drug Allergy 9 [facility] Work Phone: (3 sources) Budesonide / formoterol; Translations: [BUDESONIDE-FORMOT DOMINIC] Drug Allergy 2 Other: See Comments [facility] (3 sources) Clarithromycin; Translations: [CLARITHROMYCIN] Drug Allergy 8 GI Upset [facility] (3 sources) Erythromycin; Translations: [ERYTHROMYCIN BASE] Drug Allergy 2 GI Upset [facility] (3 sources) Macrolides; Translations: [MACROLIDE ANTIBIOTICS] Propensity to adverse reactions 2 [facility] Work Phone: (3 sources) metaxalone; Translations: [METAXALONE] Drug Allergy 8 [facility] Work Phone: (3 sources) Naproxen; Translations: [NAPROXEN] Drug Allergy 2 [facility] Work Phone: (3 sources) traMADol; Translations: [TRAMADOL] Drug Allergy 8 Itching [facility] Work Phone: Medications Completed/Discontinued Medications Medication Drug Class(es) Dates Sig (Normalized) Sig (Original) ascorbic acid 1000 mg oral tablet (2 sources) Vitamin C ascorbic acid (V ITAMIN C ORAL) Take 1,000 mg by mouth. 0 Active Problems Active Problems Problem Classification Problem Date Documented Date Episodic/Chronic Diseases of mouth; excluding dental (1 source) Glossopyrosis ; Translations: [Glossodynia] Episodic E Codes: Fall (2 sources) Fall on same level from slipping, tripping or stumbling ; Translations: [Fall on same level from slipping, tripping and stumbling without subsequent striking against object, initial encounter] Onset: 12-15-2022 Episodic Esophageal disorders (3 sources) Gastroesophageal reflux disease; Translations: [Gastro-esophageal reflux disease without esophagitis] Onset: 07-31-2009 07-31-2009 Chronic Other nervous system disorders (3 sources) Sciatic nerve lesion; Translations: [Lesion of sciatic nerve, unspecified lower limb] Onset: 09-20-2002 12-04-2003 Chronic Other non-traumatic joint disorders (1 source) Pain of left wrist; Translations: [Pain in left wrist] Episodic Other non-traumatic joint disorders (1 source) Pain in left wrist; Translations: [Pain in wrist, left] Onset: 12-15-2022 Episodic Past or Other Problems Problem Classification Problem Date Documented Da te Episodic/Chronic Esophageal disorders (3 sources) Esophagitis; Translations: [Esophagitis, unspecified] Onset: 04-05-2012 04-05-2012 Episodic Gastritis and duodenitis (3 sources) Acute gastritis; Translations: [Acute gastritis without bleeding] Onset: 04-05-2012 04-05-2012 Episodic Other connective tissue disease (3 sources) Muscle pain; Translations: [Myalgia and myositis, unspecified] Onset: 02-22-2002 12-04-2003 Episodic Other connective tissue disease (3 sources) Spasm; Translations: [Other muscle spasm] Onset: 03-31-2003 12-04-2003 Episodic Other connective tissue disease (3 sources) Adhesive capsulitis of shoulder; Translations: [Adhesive capsulitis of unspecified shoulder] Onset: 03-27-2005 03-27-2005 Episodic Other non-traumatic joint disorders (3 sources) Shoulder joint pain; Translations: [Pain in unspecified shoulder] Onset: 03-26-2005 03-26-2005 Episodic Spondylosis; intervertebral disc disorders; other back problems (3 sources) Disorder of coccyx; Translations: [Sacrococcygeal disorders, not elsewhere classified] Onset: 04-26-2003 12-04-2003 Episodic Results Test Name Value Interpretation Reference Range Facil ity Vital Signs Date Time Vital Sign Value Performing Clinician Katlin colon 12-15-2022 14:58-0400 Body temperature 97.39 [degF] Tomasa Reyes APRN.CNP Work Phone: [facility] 12-15-2022 14:58-0400 Body weight 71.22 kg Tomasa Reyes APRN.CNP Work Phone: [facility] 12-15-2022 14:58-0400 Diastolic blood pressure 74 mm[Hg] Tomasa Reyes APRN.CNP Work Phone: [facility] 12-15-2022 14:58-0400 Heart rate 82 /min Tomasa Reyes APRN.CNP Work Phone: [facility] 12-15-2022 14:58-0400 Respiratory rate 18 /min Tomasa Reyes GENERAL CAR YARD SUPERVISOR.WATER REGULATOR AND VALVE REPAIRER Work Phone: [facility] 12-15-2022 14:58-0400 SaO2% (BldA) [Mass fraction] 96 % Tomasa Reyes GENERAL CAR YARD SUPERVISOR.WATER REGULATOR AND VALVE REPAIRER Work Phone: [facility] 12-15-2022 14:58-0400 Systolic blood pressure 118 mm[Hg] Tomasa Reyes GENERAL CAR YARD SUPERVISOR.WATER REGULATOR AND VALVE REPAIRER Work Phone: [facility] Encounters Encounter Date Encounter Type Care Provider Facility Start: 12-15-2022 End: 12-15-2022 ambulatory SHERRELL CHI NAVI Facility:[facility] Start: 12-15-2022 End: 12-15-2022 Patient encounter procedure Tomasatimmy Reyes GENERAL CAR YARD SUPERVISOR.WATER REGULATOR AND VALVE REPAIRER Work Phone: [facility] Procedures Date Procedure Procedure Detail Performing Clinician Start: 09-09-2012 Mammography Lauri ruffin Work Phone: Start: 09-09-2004 Colonoscopy Lauri rfufin Work Phone: Plan of Treatment Date Care Activity Detail Author Start: 04-10-2023 Influenza vaccination INFLUENZA (Sea son Ended) [facility] Start: 08-10-2022 ADVANCE DIRECTIVE DISCUSSION ADVANCE DIRECTIVE DISCUSSION [facility] Start: 08-10-2022 DEPRESSION ASSESSMENT DEPRESSION ASS ESSMENT [facility] Start: 07-22-2021 COVID-19 VACCINE (4 - Booster for Moderna series) COVID-19 VACCINE (4 - Booster for Moderna series) [facility] Start: 04-10-2021 Influenza vaccination INFLUENZA (Sea son Ended) [facility] Start: 08-10-2016 LIPID SCREEN LIPID SCREEN [facility] Start: 09-09-2014 Colonoscopy COLONOSCOPY [facility] Start: 09-09-2014 COLORECTAL CANCER SCREENING COLORECTAL CANCER SCREENING [facility] Start: 09-09-2014 Screening for malign ant neoplasm of colon [facility] Start: 08-10-2014 DIABETES SCREEN DIABETES SCREEN [facility] Start: 09-09-2013 Mammography MAMMOGRAM [facility] Start: 02-15-2013 ADVANCE DIRECTIVE DISCUSSION ADVANCE DIRECTIVE DISCUSSION [facility] Start: 02-15-2013 PNEUMOCOCCAL: 65+ (1 - PCV) PNEUMOCOCCAL: 65+ (1 - PCV) [facility] Start: 02-15-2013 PNEUMOVAX AGE 65 AND OVER WITH 5YR LOOKBACK (#1) PNEUMOVAX AGE 65 AND OVER WITH 5YR LOOKBACK (#1) [facility] Start: 02-15-1998 Screening for malign ant neoplasm of colon [facility] Start: 02-15-1998 SHINGRIX VACCINE (1 of 2) SHINGRIX V ACCINE (1 of 2) [facility] Start: 02-15-1993 COLOGUARD (FIT-DNA) COLOGUARD (FIT-D NA) [facility] Start: 02-15-[address] [facility] Start: 02-15-1993 FECAL OCCULT BLOOD FECAL OCCULT BLOO D [facility] Start: 02-15-1993 SIGMOIDOSCOPY SIGMOIDOSCOPY [facility] Start: 02-15-1967 Urine microalbumin profile DTAP,TDAP ,TD (1 - Tdap) [facility] Start: 02-15-1966 HEPATITIS C SCREENING HEPATITIS C FELIX VAIL [facility] Start: 1960 Adult depression [facility] assessment DEPRESSION SCREENING [facility] Payers Date Payer Category Payer Unknown [id number] 2013 Medicare [employer] [place] [id number] 2013-Present [phone] [address] [place] [address] [facility] [id number] 2013 Medicare [id number] 2011 Unknown [facility] [id number] 2011-2013 PPO [id number] 1948 Unknown [id number] Social History Date Type Detail Facility Start: 09-08-2011 End: 04-05-2012 Tobacco smoking status NHIS Never smoker [facility] Start: 09-08-2011 End: 04-05-2012 Tobacco use and exposure Never used [facility] Work Phone: Start: 04-05-2012 End: 12-15-2022 Alcohol intake Current non-drinker of alcohol (finding) [facility] Start: 1950 Sex Assigned At Not on file [facility] Clinical Notes 12-08-2022 to 12-15-2022 Patient InstructionsTomasa Reyes APRN.[facility] - 12/15/2022 3:06 PM EDTPatient InstructionsReyna Kinney APRN.CNP - 12/08/2022 11:12 AM EDTFrances Prescott - 12/08/2022 11:09 AM EDT Note Date & Type Note Facility 12-15-2022 Note HNO ID: [id number] Author: RT Candice(R) Service: Radiology Author Type: Technologist Type: Progress Notes Filed: 12/15/2022 3:30 PM Note Text: Radiology Service Progress Note PATIENT NAME: Yaquelin Mercado DATE OF SERVICE: December 15, 2022 TIME: 3:24 PM PATIENT IDENTITY VERIFICATION COMPLETED USING TWO (2) IDENTIFIERS: Name and Date of confirmed by patient verbally. FALL SCREENING: Has the patient had 2 falls in the last year or 1 fall with injury or currently using an Ambulatory Assistive Device (Walker, Cane, Wheelchair, Crutches, etc.)? No PATIENT GENDER DATA: Female. status: : No status: NO. PATIENT RELEVANT IMPLANT DATA REVIEWED: Yes RADIOLOGY DEPARTMENT: General X-ray: Exam(s) Completed: Upper Extremity X-Ray(s): Wrist, left PERIPHERAL IV DATA: Not applicable SIGNED BY: RT Candice(R) December 15, 2022 3:24 PM [facility] 12-15-2022 Note HNO ID: [id number] Author: Tomasa Reyes APRN.[facility] Service: ? Author Type: Nurse Practitioner Type: Progress Notes Filed: 12/15/2022 4:12 PM Note Text: This note was created using NoteWriter. Subjective Yaquelin Mercado is a 72 year old female. 72 year old female with PMH GERD presents for complaints of left wrist pain. 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 Denies head injury. Denies LOC. Denies neck or back pain. Denies blood thinners. Denies break in skin integrity +numbness + tingling Right hand dominant. The history is provided by the patient. No assistant speech language pathologist was used. Wrist/forearm Injury The incident occurred 1 to 3 hours ago. The incident occurred at home. The injury mechanism was a fall. The pain is present in the left wrist. The quality of the pain is described as aching and stabbing. The pain does not radiate. The pain is at a severity of 5/10. The pain is moderate. The pain has been Constant since the incident. Pertinent negatives include no chest pain, muscle weakness, numbness or tingling. The symptoms are aggravated by lifting, movement and palpation. She has tried nothing for the symptoms. The treatment provided no relief. PAST MEDICAL HISTORY Diagnosis Date Esophageal reflux Esophagitis, unspecified GERD (gastroesophageal reflux disease) Myalgia and myositis, unspecified Other and unspecified hyperlipidemia PAST SURGICAL HISTORY Procedure Laterality Date EGD TRANSORAL BIOPSY SINGLE/MULTIPLE 07/31/09 ESOPHAGOGASTRODUODENOSCOPY TRANSORAL DIAGNOSTIC 04/05/2012 EGD LIG/TRNSXJ FLP TUBE ABDL/VAG APPR UNI/BI Tubal ligation NEUROPLASTY AND/TRANSPOS MEDIAN NRV CARPAL TUNNE Carpal tunnel decomp PAST SURGICAL HISTORY OF FOOT PAST SURGICAL HISTORY OF 07/03/08 LEFT ROTATER CUFF PAST SURGICAL HISTORY OF 08/02/08 Right rotator cuff PAST SURGICAL HISTORY OF 2004 COLONOSCOPY [place] ECTOPIC W/O SALPINGAND/OOPHORECTOMY Ectopic ALLERGIES Amitriptyline, Biaxin [Clarithromycin], Carbamates, Erythromycin Base, Macrolide Antibiotics, Naproxen, Skelaxin [Metaxalone], Symbicort [Budesonide-Formoterol], and Tramadol MEDICATIONS Potassium Gluconate 2.5 mEq tab Take 99 mg by mouth. omeprazole (PRILOSEC) 20 mg capsule Take 40 mg by mouth. LIVALO 4 mg tablet Take 4 mg by mouth once daily. busPIRone (BUSPAR) 7.5 mg tablet Take 7.5 mg by mouth three times daily. fish oil/borage/flax/om3,6,9 1 (OMEGA 3-6-9 ORAL) Take by mouth. Cholecalciferol, Vitamin D3, 25 mcg (1,000 unit) cap Take by mouth. Cinnamon Bark 500 mg cap Take 1,000 mg by mouth. zolpidem (AMBIEN) 10 mg Take by mouth at bedtime as needed. ascorbic acid (VITAMIN C ORAL) Take 1,000 mg by mouth. Flaxseed Oil 1,000 mg cap Take by mouth. Bacillus coagulans/inulin (PROBIOTIC WITH PREBIOTIC ORAL) Take 50 Billion CFU by mouth. vitamin B complex (SUPER B COMPLEX ORAL) Take by mouth. estradiol (ESTRACE) 1 mg tablet Coenzyme Q10 200 mg cap Take 200 mg by mouth once daily. MULTI-VITAMINS 55 PLUS TAB one tablet once a day meloxicam (MOBIC) 15 mg tablet Take 15 mg by mouth. FAMILY HISTORY Problem Relation Age of Onset other (BRAIN ANEURYSM [Other]) Father other (HEART PROBLEMS [Other]) Other BROTHERS Cancer Maternal Grandmother ASSISTANT SOFTBALL COACH CANCER other (surgery complications [Other]) Mother heart attack Social History Tobacco Use Smoking status: Never Smokeless tobacco: Never Substance Use Topics Alcohol use: No Drug use: No Review of Systems Constitutional: Negative for activity change, chills, diaphoresis, fatigue and fever. Eyes: Negative for photophobia, pain, discharge, redness, itching and visual disturbance. Respiratory: Negative for apnea, cough, choking, chest tightness and shortness of breath. Cardiovascular: Negative for chest pain, palpitations and leg swelling. Gastrointestinal: Negative for abdominal pain, diarrhea, nausea and vomiting. Musculoskeletal: Negative for arthralgias and back pain. Left wrist Skin: Negative for color change, pallor, rash and wound. Allergic/Immunologic: Negative for environmental allergies, food allergies and immunocompromised state. Neurological: Negative for dizziness, tingling, facial asymmetry, light-headedness, numbness and headaches. Hematological: Negative for adenopathy. Does not bruise/bleed easily. Psychiatric/Behavioral: Negative for agitation and behavioral problems. Objective BP 118/74 Pulse 82 Temp 36.3 ?C (97.4 ?F) Resp 18 Wt 71.2 kg (157 lb) SpO2 96% Physical Exam Vitals and nursing note reviewed. Constitutional: General: She is not in acute distress. Appearance: Normal appearance. She is normal weight. She is not ill-appearing, toxic-appearing or diaphoretic. HENT: Head: Normocephalic and atraumatic. Right Ear: Ear canal and external ear nor (more content not included)... [facility] 12-15-2022 Instructions Tomasa Reyes APRN.LILLIANA - 12/15/2022 3:53 PM EDT R.I.C.E. The general care of your injury includes the following: Resting, Icing, Compressing and Elevating the injured area. Remember this as RICE. REST: Limit the use of the injured body part. ICE: By applying ice to the affected area, swelling and pain can be reduced. Place some ice cubes in a re-sealable (Ziploc) bag and add some water. Put a thin washcloth between the bag and your skin. Apply the ice bag to the area for at least 20 minutes. Do this at least 4 times per day. Using the ice for longer times and more frequently is OK. NEVER APPLY ICE DIRECTLY TO THE SKIN. COMPRESS: Compression means to apply pressure around the injured area such as with a splint, cast or an ricardo bandage. Compression decreases swelling and improves comfort. Compression should be tight enough to relieve swelling but not so tight as to decrease circulation. Increasing pain, numbness, tingling, or change in skin color, are all signs of decreased circulation. ELEVATE: Elevate the injured part. For example, elevate your foot by placing it on a chair while sitting, or propping it up on pillows when lying down. documented in this encounter [facility] 12-15-2022 History of Present illness Narrative This note was created using [id number]. Subjective Yaquelin Mercado is a 72 year old female. 72 year old female with PMH GERD presents for complaints of left wrist pain. 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 Denies head injury. Denies LOC. Denies neck or back pain. Denies blood thinners. Denies break in skin integrity +numbness + tingling Right hand dominant. The history is provided by the patient. No assistant speech language pathologist was used. Wrist/forearm Injury The incident occurred 1 to 3 hours ago. The incident occurred at home. The injury mechanism was a fall. The pain is present in the left wrist. The quality of the pain is described as aching and stabbing. The pain does not radiate. The pain is at a severity of 5/10. The pain is moderate. The pain has been Constant since the incident. Pertinent negatives include no chest pain, muscle weakness, numbness or tingling. The symptoms are aggravated by lifting, movement and palpation. She has tried nothing for the symptoms. The treatment provided no relief. PAST MEDICAL HISTORY Diagnosis Date Esophageal reflux Esophagitis, unspecified GERD (gastroesophageal reflux disease) Myalgia and myositis, unspecified Other and unspecified hyperlipidemia PAST SURGICAL HISTORY Procedure Laterality Date EGD TRANSORAL BIOPSY SINGLE/MULTIPLE 07/31/09 ESOPHAGOGASTRODUODENOSCOPY TRANSORAL DIAGNOSTIC 04/05/2012 EGD LIG/TRNSXJ FLP TUBE ABDL/VAG APPR UNI/BI Tubal ligation NEUROPLASTY &/TRANSPOS MEDIAN NRV CARPAL TUNNE Carpal tunnel decomp PAST SURGICAL HISTORY OF FOOT PAST SURGICAL HISTORY OF 07/03/08 LEFT ROTATER CUFF PAST SURGICAL HISTORY OF 08/02/08 Right rotator cuff PAST SURGICAL HISTORY OF 2004 COLONOSCOPY TX ECTOPIC W/O SALPING&/OOPHORECTOMY Ectopic ALLERGIES Amitriptyline, Biaxin [Clarithromycin], Carbamates, Erythromycin Base, Macrolide Antibiotics, Naproxen, Skelaxin [Metaxalone], Symbicort [Budesonide-Formoterol], and Tramadol MEDICATIONS Potassium Gluconate 2.5 mEq tab Take 99 mg by mouth. omeprazole (PRILOSEC) 20 mg capsule Take 40 mg by mouth. LIVALO 4 mg tablet Take 4 mg by mouth once daily. busPIRone (BUSPAR) 7.5 mg tablet Take 7.5 mg by mouth three times daily. fish oil/borage/flax/om3,6,9 1 (OMEGA 3-6-9 ORAL) Take by mouth. Cholecalciferol, Vitamin D3, 25 mcg (1,000 unit) cap Take by mouth. Cinnamon Bark 500 mg cap Take 1,000 mg by mouth. zolpidem (AMBIEN) 10 mg Take by mouth at bedtime as needed. ascorbic acid (VITAMIN C ORAL) Take 1,000 mg by mouth. Flaxseed Oil 1,000 mg cap Take by mouth. Bacillus coagulans/inulin (PROBIOTIC WITH PREBIOTIC ORAL) Take 50 Billion CFU by mouth. vitamin B complex (SUPER B COMPLEX ORAL) Take by mouth. estradiol (ESTRACE) 1 mg tablet Coenzyme Q10 200 mg cap Take 200 mg by mouth once daily. MULTI-VITAMINS 55 PLUS TAB one tablet once a day meloxicam (MOBIC) 15 mg tablet Take 15 mg by mouth. FAMILY HISTORY Problem Relation Age of Onset other (BRAIN ANEURYSM [Other]) Father other (HEART PROBLEMS [Other]) Other BROTHERS Cancer Maternal Grandmother ASSISTANT SOFTBALL COACH CANCER other (surgery complications [Other]) Mother heart attack Social History Tobacco Use Smoking status: Never Smokeless tobacco: Never Substance Use Topics Alcohol use: No Drug use: No Review of Systems Constitutional: Negative for activity change, chills, diaphoresis, fatigue and fever. Eyes: Negative for photophobia, pain, discharge, redness, itching and visual disturbance. Respiratory: Negative for apnea, cough, choking, chest tightness and shortness of breath. Cardiovascular: Negative for chest pain, palpitations and leg swelling. Gastrointestinal: Negative for abdominal pain, diarrhea, nausea and vomiting. Musculoskeletal: Negative for arthralgias and back pain. Left wrist Skin: Negative for color change, pallor, rash and wound. Allergic/Immunologic: Negative for environmental allergies, food allergies and immunocompromised state. Neurological: Negative for dizziness, tingling, facial asymmetry, light-headedness, numbness and headaches. Hematological: Negative for adenopathy. Does not bruise/bleed easily. Psychiatric/Behavioral: Negative for agitation and behavioral problems. Objective BP 118/74 Pulse 82 Temp 36.3 C (97.4 F) Resp 18 Wt 71.2 kg (157 lb) SpO2 96% Physical Exam Vitals and nursing note reviewed. Constitutional: General: She is not in acute distress. Appearance: Normal appearance. She is normal weight. She is not ill-appearing, toxic-appearing or diaphoretic. HENT: Head: Normocephalic and atraumatic. Right Ear: Ear canal and external ear normal. Left Ear: Ear canal and external ear normal. Nose: Nose normal. No congestion or rhinorrhea. Mouth/Throat: Mouth: Mucous membranes are moist. Pharynx: No oropharyngeal exudate or posterior oropharyngeal erythema. Eyes: General: Right eye: No discharge. Left eye: No discharge. Extraocular Movements: Extraocular movements intact. Conjunctiva/sclera: Conjunctivae normal. Pupils: Pupils are equal, round, and reactive to light. Cardiovascular: Rate and Rhythm: Normal rate and regular rhythm. Pulses: Normal pulses. Heart sounds: Normal heart sounds. No murmur heard. No friction rub. Pulmonary: Effort: Pulmonary effort is normal. No respiratory distress. Breath sounds: Normal breath sounds. No stridor. No wheezing, rhonchi or rales. Chest: Chest wall: No tenderness. Abdominal: General: Abdomen is flat. There is no distension. Palpations: Abdomen is soft. There is no mass. Tenderness: There is no abdominal tenderness. There is no right CVA tenderness, left CVA tenderness, guarding or rebound. Hernia: No hernia is present. Musculoskeletal: General: No swelling, tenderness, deformity or signs of injury. Normal range of motion. Cervical back: Normal range of motion and neck supple. No rigidity. Right lower leg: No edema. Left lower leg: No edema. Comments: Left wrist with TTP noted over the radial aspect. Active and passive ROM with guarding Skin intact Brisk cap refill +neuro +sensation Lymphadenopathy: Cervical: No cervical adenopathy. Skin: General: Skin is warm and dry. Capillary Refill: Capillary refill takes less than 2 seconds. Coloration: Skin is not jaundiced or pale. Findings: No bruising, erythema, lesion or rash. Neurological: General: No focal deficit present. Mental Status: She is alert and oriented to person, place, and time. Cranial Nerves: No cranial nerve deficit. Sensory: No sensory deficit. Motor: No weakness. Coordination: Coordination normal. Gait: Gait normal. Psychiatric: Mood and Affect: Mood normal. Behavior: Behavior normal. Thought Content: Thought content normal. Judgment: Judgment normal. Assessment and Plan ASSESSMENT/PLAN: 1. Pain in wrist, left - ICD9: 719.43, ICD10: M25.532 (primary diagnosis) Acute onset FOREMAN/PROJECT MANAGER +injury - XR WRIST GENERAL 3V PA/LAT/OBL LEFT-negative for acute process Wrist splint RICE therapy OTC analgesics 2. Fall on same level from slipping, tripping or stumbling, initial encounter - ICD9: E885.9, ICD10: W01.0XXA No LOC NO head injury No neck or back pain Mechanical No red flags - XR WRIST GENERAL 3V PA/LAT/OBL LEFT Tomasa Reyes APRN.CNP documented in this encounter [facility] 12-08-2022 Note HNO ID: [id number] Author: Reyna Kinney APRN.CNP Service: ? Author Type: Nurse Practitioner Type: Progress Notes Filed: 12/08/2022 12:38 PM Note Text: IMPRESSION: - Burning tongue syndrome PLAN: Discussed findings, diagnosis and management options with patient and family. - Yaquelin Mercado is presenting today for evaluation of burning tongue syndrome. She has been seen by multiple providers and has been on a trial on multiple different medications without any improvement to her burning tongue. Reports her tongue is sensitive specifically more on the sides and is more painful to speak when her tongue hits her teeth. On exam, the oropharynx and oral mucosa is essentially normal. No masses, lesions or any discoloration. Discussed supportive care for burning tongue syndrome. Consult placed to oral dermatology for further evaluation. FOLLOW UP: Return as needed. Call sooner if problems develop. Reyna Kinney APRN.CNP Referring Provider: I was consulted by self for burning tongue. Response to consult is via shared electronic medical record for my opinion. Reason for Consult: Yaquelin Mercado is a 72 year old female who presents to [facility] Otolaryngology Department. Patient presents with: New Patient: Burning mouth syndrome x9 months HPI: Yaquelin Mercado is a 72 year old female who presents with burning tongue. Burning tongue sensation for the last 9 months. Has seen a few doctors for it. Describes her tongue as a burning sensitive sensation. Has had blood work that showed hr zinc was low but all other vitamin levels were normal. She describes dry mouth as well.. Treated for thrush twice. Has tried gabapentin, xantax, nortriptyline, clonazepam and valproic acid without any improvement to her symptoms. Currently using BMX and taking Buspirone without any improvement. Uses Sensodyne tooth paste. Symptoms have not changed since trying all things. Reports she cannot smell and has decreased taste. PAST MEDICAL HISTORY PAST MEDICAL HISTORY Diagnosis Date - Esophageal reflux - Esophagitis, unspecified - GERD (gastroesophageal reflux disease) - Myalgia and myositis, unspecified - Other and unspecified hyperlipidemia PAST SURGICAL HISTORY PAST SURGICAL HISTORY Procedure Laterality Date - EGD TRANSORAL BIOPSY SINGLE/MULTIPLE 07/31/09 - ESOPHAGOGASTRODUODENOSCOPY TRANSORAL DIAGNOSTIC 04/05/2012 EGD - LIG/TRNSXJ FLP TUBE ABDL/VAG APPR UNI/BI Tubal ligation - NEUROPLASTY AND/TRANSPOS MEDIAN NRV CARPAL TUNNE Carpal tunnel decomp - PAST SURGICAL HISTORY OF FOOT - PAST SURGICAL HISTORY OF 07/03/08 LEFT ROTATER CUFF - PAST SURGICAL HISTORY OF 08/02/08 Right rotator cuff - PAST SURGICAL HISTORY OF 2004 COLONOSCOPY - [place] ECTOPIC W/O SALPINGAND/OOPHORECTOMY Ectopic SOCIAL HISTORY Tobacco Use: Never Alcohol Use: No FAMILY HISTORY FAMILY HISTORY Problem Relation Age of Onset - other (BRAIN ANEURYSM [Other]) Father - other (HEART PROBLEMS [Other]) Other BROTHERS - Cancer Maternal Grandmother ASSISTANT SO[employer] CANCER - other (surgery complications [Other]) Mother heart attack MEDICATIONS - ergocalciferol, vitamin D2, (DRISDOL) 50,000 unit capsule - estradiol (ESTRACE) 1 mg tablet - venlafaxine XR (EFFEXOR XR) 150 mg 24 hr capsule - famotidine (PEPCID) 40 mg tablet - Losartan-Hydrochlorothiazide 100-12.5 mg per tablet - ZOLPIDEM TARTRATE (AMBIEN ORAL) Take by mouth. - UBIDECARENONE (CO Q-10 ORAL) Take by mouth. - multivitamin tablet Take 1 tablet by mouth once daily. - CALCIUM CARBONATE (CALCIUM 500 ORAL) Take by mouth. - [place]-3 Fatty Acids (FISH OIL) 300 mg cap Take by mouth. - vilazodone (VIIBRYD) 40 mg Take 10 mg by mouth daily with breakfast. - estradiol 0.01 % (0.1 mg/gram) vaginal cream Use vaginally once each week. - ERGOCALCIFEROL, VITAMIN D2, (VITAMIN D ORAL) Take by mouth. - Coenzyme Q10 200 mg cap Take 200 mg by mouth once daily. - Hgai-Qgbi-JMY#1-I-Qqnc-Cheo-Bor (OSTEO BI-FLEX) 750-625-30 mg Tab Take 1 tablet by mouth twice daily. - CALCIUM CARB/VIT D3/MAG11/ZINC (LNNRFUA-GJCKGSTSW-OZEJ-VIT D ORAL) Take 1 tablet by mouth once daily. - omeprazole (PRILOSEC) 20 mg capsule Take 1 capsule by mouth twice daily. - zolpidem (AMBIEN) 10 mg Tab Take 1 tablet by mouth at bedtime as needed. FOR INSOMNIA - docosahexanoic acid/epa(FISH OIL 120 MG-180 MG CAP) ONE GEL CAP DAILY - meloxicam(MOBIC 15 MG TAB) Take one(1) tablet daily. - MULTI-VITAMINS 55 PLUS TAB one tablet once a day ALLERGIES Amitriptyline, Biaxin [Clarithromycin], Carbamates, Erythromycin Base, Macrolide Antibiotics, Naproxen, Skelaxin [Metaxalone], Symbicort [Budesonide-Formoterol], and Tramadol REVIEW OF SYSTEMS: Review of systems template on 12/08/2022 was completed in entirety on day of appointment and negative except where noted below: Constitutional: (more content not included)... [facility] 12-08-2022 Instructions Reyna Kinney APRN.CNP - 12/08/2022 11:33 AM EDT Burning Mouth Instructions: - sip water frequently - suck on ice chips - chew sugarless gum - avoid spicy foods and mouth washes that contain alcohol as well as acidic foods like citrus fruits - avoid alcohol and tobacco products - adjusting or replacing irritating dentures - brush teeth/ dentures with baking soda and water For Dry Mouth/ Burning Mouth Rinse 4-5 times per day with Salt/Soda solution Recipe: 1tsp salt 1tsp baking soda diluted in 1 liter water. the salt with help as antimicrobial while the baking soda helps regulate the oral pH documented in this encounter [facility] 12-08-2022 History of Present illness Narrative Images from the original note were not included. IMPRESSION: - Burning tongue syndrome PLAN: Discussed findings, diagnosis and management options with patient and family. - Yaquelin Mercado is presenting today for evaluation of burning tongue syndrome. She has been seen by multiple providers and has been on a trial on multiple different medications without any improvement to her burning tongue. Reports her tongue is sensitive specifically more on the sides and is more painful to speak when her tongue hits her teeth. On exam, the oropharynx and oral mucosa is essentially normal. No masses, lesions or any discoloration. Discussed supportive care for burning tongue syndrome. Consult placed to oral dermatology for further evaluation. FOLLOW UP: Return as needed. Call sooner if problems develop. Reyna Kinney APRN.WATER REGULATOR AND VALVE REPAIRER Referring Provider: I was consulted by self for burning tongue. Response to consult is via shared electronic medical record for my opinion. Reason for Consult: Yaquelin Mercado is a 72 year old female who presents to [facility] Otolaryngology Department. Patient presents with: New Patient: Burning mouth syndrome x9 months HPI: Yaquelin Mercado is a 72 year old female who presents with burning tongue. Burning tongue sensation for the last 9 months. Has seen a few doctors for it. Describes her tongue as a burning sensitive sensation. Has had blood work that showed hr zinc was low but all other vitamin levels were normal. She describes dry mouth as well.. Treated for thrush twice. Has tried gabapentin, xantax, nortriptyline, clonazepam and valproic acid without any improvement to her symptoms. Currently using BMX and taking Buspirone without any improvement. Uses Sensodyne tooth paste. Symptoms have not changed since trying all things. Reports she cannot smell and has decreased taste. PAST MEDICAL HISTORY PAST MEDICAL HISTORY Diagnosis Date Esophageal reflux Esophagitis, unspecified GERD (gastroesophageal reflux disease) Myalgia and myositis, unspecified Other and unspecified hyperlipidemia PAST SURGICAL HISTORY PAST SURGICAL HISTORY Procedure Laterality Date EGD TRANSORAL BIOPSY SINGLE/MULTIPLE 07/31/09 ESOPHAGOGASTRODUODENOSCOPY TRANSORAL DIAGNOSTIC 04/05/2012 EGD LIG/TRNSXJ FLP TUBE ABDL/VAG APPR UNI/BI Tubal ligation NEUROPLASTY &/TRANSPOS MEDIAN NRV CARPAL TUNNE Carpal tunnel decomp PAST SURGICAL HISTORY OF FOOT PAST SURGICAL HISTORY OF 07/03/08 LEFT ROTATER CUFF PAST SURGICAL HISTORY OF 08/02/08 Right rotator cuff PAST SURGICAL HISTORY OF 2004 COLONOSCOPY [place] ECTOPIC W/O SALPING&/OOPHORECTOMY Ectopic SOCIAL HISTORY Tobacco Use: Never Alcohol Use: No FAMILY HISTORY FAMILY HISTORY Problem Relation Age of Onset other (BRAIN ANEURYSM [Other]) Father other (HEART PROBLEMS [Other]) Other BROTHERS Cancer Maternal Grandmother ASSISTANT [employer] CANCER other (surgery complications [Other]) Mother heart attack MEDICATIONS ergocalciferol, vitamin D2, (DRISDOL) 50,000 unit capsule estradiol (ESTRACE) 1 mg tablet venlafaxine XR (EFFEXOR XR) 150 mg 24 hr capsule famotidine (PEPCID) 40 mg tablet Losartan-Hydrochlorothiazide 100-12.5 mg per tablet ZOLPIDEM TARTRATE (AMBIEN ORAL) Take by mouth. UBIDECARENONE (CO Q-10 ORAL) Take by mouth. multivitamin tablet Take 1 tablet by mouth once daily. CALCIUM CARBONATE (CALCIUM 500 ORAL) Take by mouth. [place]-3 Fatty Acids (FISH OIL) 300 mg cap Take by mouth. vilazodone (VIIBRYD) 40 mg Take 10 mg by mouth daily with breakfast. estradiol 0.01 % (0.1 mg/gram) vaginal cream Use vaginally once each week. ERGOCALCIFEROL, VITAMIN D2, (VITAMIN D ORAL) Take by mouth. Coenzyme Q10 200 mg cap Take 200 mg by mouth once daily. Dofi-Rcxa-UME#3-W-Hjqw-Cheo-Bor (OSTEO BI-FLEX) 750-625-30 mg Tab Take 1 tablet by mouth twice daily. CALCIUM CARB/VIT D3/MAG11/ZINC (KCJUOMS-VTKJJBSVR-ASOG-VIT D ORAL) Take 1 tablet by mouth once daily. omeprazole (PRILOSEC) 20 mg capsule Take 1 capsule by mouth twice daily. zolpidem (AMBIEN) 10 mg Tab Take 1 tablet by mouth at bedtime as needed. FOR INSOMNIA docosahexanoic acid/epa(FISH OIL 120 MG-180 MG CAP) ONE GEL CAP DAILY meloxicam(MOBIC 15 MG TAB) Take one(1) tablet daily. MULTI-VITAMINS 55 PLUS TAB one tablet once a day ALLERGIES Amitriptyline, Biaxin [Clarithromycin], Carbamates, Erythromycin Base, Macrolide Antibiotics, Naproxen, Skelaxin [Metaxalone], Symbicort [Budesonide-Formoterol], and Tramadol REVIEW OF SYSTEMS: Review of systems template on 12/08/2022 was completed in entirety on day of appointment and negative except where noted below: Constitutional: Negative for fever, appetite change, weight loss, weight gain Neurological: Negative for headaches, no history of stroke or seizure ENT: See HPI Cardiovascular: Negative for chest pain, dyspnea on exertion Respiratory: Is not experiencing shortness of breath. No history of asthma, COPD or recent pneumonia Gastrointestinal: Negative for nausea, vomiting, hx of reflux. Endo: No history of diabetes or thyroid disorders Heme/Lymph: No history of bleeding disorder Allergy: Negative for seasonal allergies, nasal congestion PHYSICAL EXAM Physical exam template on 12/08/2022 was completed in entirety on day of appointment and negative except where noted below: Vital Signs: There were no vitals taken for this visit. General: Well-developed, well-nourishes. No distress Respiratory Effort: Equal inspiration and expiration without stridor and is breathing comfortably on room air. Cardiovascular: No peripheral edema. Neuro: Awake, alert and oriented x3 CRANIAL NERVES: II: Pupils round, equal and reactive III, IV, : EOM normal V: 1,2,3: normal sensation in all divisions bilaterally VII: Normal strength in all divisions. VIII: Hearing grossly normal. IX, X: Intact palatal elevation and sensation XI: Shoulder strength normal XII: Tongue mobility normal Ears: External ear is intact. Canal is patent with intact skin and TM is clear and mobile. Nose: No scar or anatomic deformity. Septum is intact and midline. Mucosa is pink without any purulence or polyps. Oral Cavity: Normal lips. The dentition is fair The mucosal surfaces are moist with no lesions or abnormalities, tonsillar fossa symmetric. The oropharynx and pharynx is unremarkable and without lesions. Larynx: Please see scope exam below Neck:The neck is atraumatic and without scars . Trachea is midline. There is no lymphadenopathy, no skin lesions and no neck masses appreciated. Voice:Perceptual voice evaluation demonstrates normal speaking voice. DATA: Previous notes reviewed Reyna Kinney APRN.CNP Medical Decision Making: Problems: Low: Stable chronic illness Risk: Low: Low risk from testing/treatment Medical Decision Making Level: 3 - Low This note was partially generated using [employer] voice recognition system. Please note that occasional gambling counsellor errors may be made. documented in this encounter [facility] 12-08-2022 Nurse Note Tobacco Use: Never Was smoking cessation packet given? N/A - Patient is a non-smoker or quit >1 year ago. Was a referral initiated?N/A Patient is a non-smoker documented in this encounter [facility] Diagnosis Pain in wrist, left- Primary Fall on same level from slipping, tripping or stumbling, initial encounter [facility])* Diagnostic Procedure Only (Urgent) - Closed Specialty Diagnoses / Procedures Referred By Alfred mcnally Referred To Contact XR IMAGING Diagnoses Pain in wrist, left Fall on same level from slipping, tripping or stumbling, initial encounter Procedures XR WRIST GENERAL 3V PA/LAT/OBL LEFT RADEX WRIST COMPLETE MINIMUM 3 VIEWS Tomasa Reyes APRN.CNP [address] [place] [address] Xr Imaging Referral ID Status Reason Start Date Expiration Date V isits Requested Visits Authorized [id number] Closed Auto-Generate d Referral 12/15/2022 01/14/2024 1 1 [facility] Summary Purpose Family History No Family History Records FoundNo Family History Records Found Advance Directives No Advanced Directives Records FoundDocuments on File Type Date Recorded 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 Advance Directive(s) Reason for Referral Specialty Diagnoses / Procedures Referred By Alfred mcnally Referred To Contact Dermatology Diagnoses Burning tongue syndrome Procedures CONSULT TO DERMATOLOGY OFFICE/OUTPATIENT NEW HIGH MDM 60-74 MINUTES Reyna Kinney APRN.WATER REGULATOR AND VALVE REPAIRER [address] [place] [address] [place] [id number] [place] [address] Referral ID Status Reason Start Date Expiration Date Visits Requested Visits Authorized [id number] Pending Review PCP Requested Referral 12/08/2022 12/08/2023 1 1 Additional Source Comments INFORMATION SOURCE (unrecogn ized section and content) DATE CREATED AUTHOR AUTHOR'S ORGANIZ ATION 12/17/2022 [facility] Source Comments (unrecognize d section and content) In the event this informatio n is protected by the Federal Confidentiality of Alcohol and Drug Abuse Patient Records regulations: The Federal rules restrict any use of the information to criminally investigate or prosecute any alcohol or drug abuse patient.[facility] the event this information is protected by the Federal Confidentiality of Alcohol and Drug Abuse Patient Records regulations: The Federal rules restrict any use of the information to criminally investigate or prosecute any alcohol or drug abuse patient.[facility] the event this information is protected by the Federal Confidentiality of Alcohol and Drug Abuse Patient Records regulations: The Federal rules restrict any use of the information to criminally investigate or prosecute any alcohol or drug abuse patient.[facility] Reason for Visit (unrecogniz ed section and content) Reason Comments New Patient Burning mouth syndro me x9 months Reason Comments Wrist/forearm Injury x today, [facility] Care Teams (unrecognized sec tion and content) FOR RECORDS PERTAINING TO PATIENTS WHO ARE OR HAVE BEEN ENROLLED IN A CHEMICAL DEPENDENCY/SUBSTANCEABUSE PROGRAM, SOME INFORMATION MAY BE OMITTED. This clinical summary was aggregated from multiple sources. Caution should be exercised in using it in the provision of clinical care. This summary normalizes information from multiple sources, and as a consequence, information in this document may materially change the coding, format and clinical context of patient data. In addition, data may be omitted in some cases. CLINICAL DECISIONS SHOULD BE BASED ON THE PRIMARY CLINICAL RECORDS. [employer] provides no warranty or guarantee of the accuracy or completeness of information in this document.
[2023-09-15 17:34] LABS: Hemoglobin A1c 5.4 % (3.8-5.6)
[2023-09-15 17:36] LABS: Thyroid Stim Hormone (TSH) 2.59 uIU/mL (0.358-3.74)
[2023-09-15] MEDS: busPIRone 5 MG Tablet 7.5 MG PO (21:57)
[2023-09-15] MEDS: Pantoprazole Sodium 40 MG Tablet PO (21:58)
[2023-09-15] MEDS: Atorvastatin Calcium 40 MG Tablet PO (21:58)
[2023-09-15] MEDS: MELATONIN 3 MG TABLET PO (22:02)
[2023-09-16 02:00] VITALS: BP 118/90; PULSE 73; RESP 18; TEMP 36.7; O2SAT 96
[2023-09-16 04:31] VITALS: BMI 24.5
--- NOTE | 2023-09-16 07:32 | PCM.DC.SUM ---
Providers Date of Admission: 09/15/23 Primary Care Physician: Dr. Reed Cuenca MD Consultations 09/15/23 13:58 Consult: Tele-Neurology Routine Consulting Provider: [facility] Reason for Consult: Acute Ischemic Stroke/TIA EMERGENT Consult: No MD Notified: Yes Date Notified: 09/15/23 Time Notified: 12:38 Method of Notification: Answering Service Nursing Unit Staff Notify [facility] of Tele-Neurology Consult: Yes Reason For Visit: TIA/CVA Diagnosis Discharge Diagnosis (1) TIA (transient ischemic attack): Status: Acute Code(s): G45.9 - Transient cerebral ischemic attack, unspecified Plan: DISCHARGE DIAGNOSES: 1. Transient right-sided paresthesias, right eye vision changes both resolved with also concurrently noted right facial droop unclear if new or old concerning for possible TIA versus CVA with CT head upon presentation evidence of prior R basal ganglia infarct 2. Hypertension 3. Anxiety and depression/chronic insomnia 4. Hyperlipidemia 5. GERD 6. CODE status: Patient HCPOA and living will are not in place however she notes her daughter who is present would be her decision-maker if she was unable. DNR-CCA, no intubation status. Medications at Discharge Home Medications calcium carbonate 500 mg calcium (1,250 mg) chewable tablet 600 mg PO DAILY 08/17/15 coenzyme Q10 100 mg capsule (Co Q-10) 200 mg PO DAILY 08/17/15 fish, borage, flaxseed oils-omega 3,6,9 comb no.1 1,200 mg capsule ([place] 3-6-9) 1,500 mg PO BID 08/17/15 omeprazole 20 mg capsule,delayed release 40 mg PO BID 08/17/15 cholecalciferol (vitamin D3) 25 mcg (1,000 unit) capsule 1,000 unit PO DAILY 07/07/19 citalopram 10 mg tablet 20 mg PO DAILY 07/07/19 zolpidem 10 mg tablet 10 mg PO QHS 07/07/19 cinnamon bark 500 mg capsule 1,000 mg PO DAILY 03/30/20 B.coagulan,subtilis 1 bill. cell-inulin 1 gram-vit C 15 mg chew tablet (Culturelle Probiotic-Prebiotic) 1 tab PO DAILY 09/15/23 ascorbic acid (vitamin C) 1,000 mg tablet,extended release (C Complex) 1,000 mg PO DAILY 09/15/23 buspirone 7.5 mg tablet 7.5 mg PO BID mood 09/15/23 flaxseed oil 1,000 mg capsule 1,000 mg PO DAILY 09/15/23 multivitamin (Daily Multi-Vitamin tablet) 1 tab PO DAILY supplement 09/15/23 potassium chloride 10 mEq tablet,extended release 10 meq PO DAILY 09/15/23 vitamin B complex (Super Quints B-50 tablet) 1 tab PO DAILY 09/15/23 aspirin 81 mg chewable tablet 81 mg PO BREAKFAST 30 days #30 tabs 09/16/23 atorvastatin 40 mg tablet 40 mg PO QHS 30 days #30 tabs 09/16/23 clopidogrel 75 mg tablet 75 mg PO DAILY 21 days #21 tabs 09/16/23 lisinopril 5 mg tablet 5 mg PO DAILY 30 days #30 tabs 09/16/23 Hospital Course Operations None Procedures 2-D Echocardiogram and EKG Summary of Care Provided Minutes Spent on Discharge: 35 Hospital Course: The patient is a 73 y/o F w/ PMHx: HLD, GERD, Anxiety and Depression, Chronic insomnia who presented to the [facility] ED on 09/15/2023 with history of onset 9:30 am notable right-sided paresthesias as well as right-sided facial droop with paresthesias involving both the upper and lower extremity. Patient upon ED arrival was unaware that she had a facial droop of note. She complained also of difficulty with altered vision in her right eye which also occurred this am and is still ongoing upon arrival but improved and resolved in the ED. She does report that she has a new prescription recently for her vision and has eyeglasses. She denies any other focal neurological symptoms even drove herself to the ED for evaluation. In the ED NIH stroke scale noted to be 1 for facial palsy only. 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 [facility] was consulted per ED physician however their note is still pending upon evaluation. ED physician has relayed that they requested a baby aspirin and a loading dose of 300 mg of Plavix be administered upon admission which was ordered. The patient was admitted to PCU, MRI of the brain obtained with a left sphenoid sinusitis with questionable inspissated secretions with comment of possibly consider fungal infection which was discussed with infectious disease and given asymptomatic consider an over read, ECHO with LVEF 65%, diastolic function indeterminate, bubble contrast study negative for PFO/ASD, RVSP 36 mmHg, mild TVI, PT/OT/Speech/Nutrition evaluation per protocol. Initially allowed permissive hypertension, administered aspirin and Plavix load upon admission per tele-neurology recommendation initially, maintain on aspirin and plavix with plan for 21 days of dual therapy then transition to single dose asa, added moderate dose statin, added low dose lisinopril for appropriate BP control with planned repeat BMP outpatient and BP reassessments with PCP. Mag 2.1, TSH 2.59, hemoglobin A1c 5.4%, FLP obtained. DAY OF DISCHARGE PROGRESS NOTE: Subjective: Patient without acute event overnight per self and nursing report. Patient denies fever, chills, nausea, emesis, abdominal pain, chest pain or dyspnea. Patient agreeable to discharge to home with new regimen. Patient will be discharged with follow-up with primary care physician within 3-5 days in addition to follow-up with neurology also as recommended. Objective: T97.7, heart rate 74, BP 113/63, respiratory rate 16, 97% on room air. Physical Examination: General: awake, alert, oriented x 3 and cooperative, seated upright in the bed, NAD. Skin: normal color, turgor, no icterus, cyanosis. HEENT: AT/NC, EOMI, PERRLA, MMM, still unchanged mild right-sided nasolabial flattening which suspect is chronic. Lungs: CTA bilaterally, moderate effort, mild decrease BL bases, no rales, ronchi or wheezing; Heart: Regular rate and rhythm; no gallop, rub audible. Abdomen: soft, NTTP, ND, normal BS. Extremities: no cyanosis, clubbing, or edema. Neurological: patient awake, alert, oriented x 3; cognitive function appears intact upon questioning,; pupils equally reactive to light and accomodation; cranial nerves grossly normal except noted mild NLF flatting R side correcting with smile, moving all 4 extremities, strength appropriate, FTN/HTS appropriate, sensation intact, speech appropriate. Psychiatric: affect appears normal, no acute evidence of depressive or anxiety feelings. Assessment and Plan: Please see hospital summary above. Weight / BMI Weight Weight: 143 lb 1.28 oz Body Mass Index (BMI) 24.5 ABG / Lab / Microbiology Data 09/16/23 08:10 09/16/23 08:10 Laboratory: Laboratory Results - last 24 hr 09/15/23 11:30: Hemoglobin A1c 5.4, TSH 2.59 09/15/23 11:40: WBC 6.8, RBC 4.80, Hgb 13.8, Hct 43.4, MCV 90.4, MCH 28.8, MCHC 31.8 L, RDW Std Deviation 45.0 H, RDW Coeff of Darlene 13.4, Plt Count 224, MPV 10.1, Immature Gran % (Auto) 0.400, Neut % (Auto) 52.1, Lymph % (Auto) 36.5, [place] % (Auto) 8.2, Eos % (Auto) 1.9, Baso % (Auto) 0.9, Absolute Neuts (auto) 3.6, Absolute Lymphs (auto) 2.49, Nucleated RBC % 0, PT 12.7, INR 1.0, APTT 29.1, Sodium 134 L, Potassium 3.7, Chloride 104, Carbon Dioxide 28.0, Anion Gap 2 L, BUN 14, Creatinine 0.78, Estim Creat Clear Calc 52.47, Est GFR (MDRD) Af Amer 92, Est GFR (MDRD) Non-Af 76, BUN/Creatinine Ratio 17.8, Glucose 93, Calcium 9.2, Magnesium 2.1, Troponin I High Sens 32 09/15/23 11:46: POC Glucose 102 Radiography Diagnostic Testing: Radiology Impression Brain MRI 09/15/23 00:00 IMPRESSION: Left sphenoid sinusitis. Possible inspissated secretions. Consider fungal infection. Otherwise Normal unenhanced MRI of the brain. Electronically Signed: Yaw Moise MD at 21:31 EST , Brain CT 09/15/23 11:42 IMPRESSION: 1. 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 2. No acute intracranial process. 3. If symptoms persist, MRI of the brain is recommended. Electronically Signed: Ankush Cruz MD at 12:25 EST , ADDENDUM: 09/15/23 1240 IMPRESSION: 1. 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 2. No acute intracranial process. 3. If symptoms persist, MRI of the brain is recommended. N.B. : The above Results were Read Back by Ankush Cruz MD to Tim Galicia MD, and understanding confirmed on 09/15/2023 12:34:03 (ET). Electronically Signed: Ankush Cruz MD at 12:25 EST , Head/Neck CTA 09/15/23 11:42 IMPRESSION: 1. 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 2. Minimal narrowing of the right M1 segment without significant stenosis. 3. Otherwise no intracranial great vessel stenosis. 4. Tortuous common carotid arteries without significant stenosis. Unremarkable internal carotid arteries. 5. No definite aneurysm is seen. N.B. : The above Results were Read Back by Ankush Cruz MD to Tim Galicia MD, and understanding confirmed on 09/15/2023 12:24:49 (ET). Electronically Signed: Ankush Cruz MD at 12:35 EST , ADDENDUM: 09/15/23 1242 IMPRESSION: 1. 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 2. Minimal narrowing of the right M1 segment without significant stenosis. 3. Otherwise no intracranial great vessel stenosis. 4. Tortuous common carotid arteries without significant stenosis. Unremarkable internal carotid arteries. 5. No definite aneurysm is seen. N.B. : The above Results were Read Back by Ankush Cruz MD to Tim Galicia MD, and understanding confirmed on 09/15/2023 12:24:49 (ET). Electronically Signed: Ankush Cruz MD at 12:35 EST , Chest X-Ray 09/15/23 13:44 IMPRESSION: No radiographic evidence of acute cardiopulmonary disease. Probable hiatal hernia. Electronically Signed: Ankush Cruz MD at 13:58 EST Reading Location ID and State: [facility] / [place] Tel , Service support , Echocardiogram 09/15/23 13:58 Interpretation Summary The left ventricular ejection fraction is 65 %. Diastolic function is indeterminate. Bubble contrast study is negative for PFO/ASD. Right ventricular systolic pressure estimated to be 36 mmHg. Mild tricuspid valve insufficiency. Calcified aortic root. The study was technically difficult. Ordering Physician: Yamilet Arevalo Referring Physician: Reed Cuenca Chi Performed By: Esme Zaldivar, JULIOCS, RVT Meaningful Use Info Meaningful Use Diagnoses (Choose all that apply): None applicable Discharge Plan Admission Admit Date/Time: 09/15/23 12:36 Primary Reason for Your Visit: TIA, Hypertension, Hyperlipidemia Attending Provider: Yamilet Arevalo Primary Care Provider: Reed Cuenca Chi Consulting Providers: Devaughn Bartlett; Brady Atkins; Jacy Wan; Nikki Lundy; Marianne Spicer; Randolph Morocho; Flores Don; Steffen Seaman; Lauri Harp; Zahida Hopper; Peter De Jesus; Sariah Blackmon; Gregory Cowan; Joaquin Archer; Nikos Lyman; Stanislav Herndon; Norman Mario; Anahi Craft; Gennaro Tse Instructions Patient Instructions: All About Cholesterol Control, DASH Plan Eat Heart Healthy Food, TIA Dc Additional Instructions / Restrictions: DISCHARGE ADDITIONAL: Per neurology recommendations please continue baby aspirin and Plavix 75 mg daily both for the next 21 days and after this you will transition to taking only aspirin 81 mg daily. During the admission we did restart you on statin therapy and this can be followed with your primary care physician and altered or changed to a different regimen that you tolerate better per their discretion. Please continue the recently started low dose lisinopril blood pressure medication as your blood pressure was above goal during the admission. Please have repeat basic metabolic panel and blood pressure check at follow-up with your primary care physician to assure no further regimen changes with blood pressure medications are necessary. Discharge Orders/Prescriptions Prescriptions: New atorvastatin 40 mg Tablet 40 mg PO QHS 30 Days Qty: 30 0RF clopidogrel 75 mg Tablet 75 mg PO DAILY 21 Days Qty: 21 0RF aspirin 81 mg Tablet,Chewable 81 mg PO BREAKFAST 30 Days Qty: 30 0RF lisinopril 5 mg Tablet 5 mg PO DAILY 30 Days Qty: 30 0RF Continued omeprazole 20 MG capsule,delayed release(DR/EC) 40 mg PO BID Patient Comments: calcium carbonate 500 MG tablet,chewable 600 mg PO DAILY coenzyme Q10 [Co Q-10] 100 MG capsule 200 mg PO DAILY [place] 3-6-9 1,200 MG capsule 1,500 mg PO BID citalopram 10 MG tablet 20 mg PO DAILY zolpidem 10 MG tablet 10 mg PO QHS cholecalciferol (vitamin D3) 1,000 UNIT capsule 1,000 unit PO DAILY cinnamon bark 500 MG capsule 1,000 mg PO DAILY multivitamin [Daily Multi-Vitamin] Tablet 1 tab PO DAILY potassium chloride 10 mEq tablet extended release 10 meq PO DAILY buspirone 7.5 mg tablet 7.5 mg PO BID C Complex 1,000 mg tablet extended release 1,000 mg PO DAILY flaxseed oil 1,000 mg capsule 1,000 mg PO DAILY Culturelle Probiotic-Prebiotic 1 billion cell- 1 gram-15 mg tablet,chewable 1 tab PO DAILY vitamin B complex [Super Quints B-50] Tablet 1 tab PO DAILY Discontinued estradiol 1 MG tablet 1 mg PO DAILY Patient Comments: Referrals / Follow Up: Vincent Oliva MD [Non-Staff -Ordering Privileges] - (Please follow-up with Neurology. Please call office to arrange first visit available.) Reed Cuenca Chi, MD [Primary Care Provider] - (Follow-up within 3-5 days to review admission.) Disposition Disposition (needs filled in before D/C Order can be placed): Home, Self Care Charges/Coding Visit Charges Inpatient E&M: 04226 Disch Hosp >30min
[2023-09-16 07:49] VITALS: O2SAT 93
[2023-09-16 08:03] VITALS: BP 139/73; PULSE 68; RESP 16; TEMP 36.4; O2SAT 93
[2023-09-16 08:08] VITALS: PULSE 68
[2023-09-16 08:24] LABS: Absolute Lymphocyte Count 1.75 X10^3/uL (0.83-4.51); Absolute Neutrophil Count 3.2 X10^3/uL (2.0-7.7); Basophil# 0.05 X10^3/uL; Basophil% 0.9 % (0-1); Eosinophil# 0.11 X10^3/uL; Eosinophils% 1.9 % (0-5); Hematocrit 37.9 % (37-47); Hemoglobin 12.2 g/dL (12.0-15.0); Lymphocyte # 1.75 X10^3/ul (0.83-4.51); Mean Corp Hgb Conc 32.2 g/dL (32-36); Mean Corpuscular Hgb 28.8 pg (27.0-32.0); Mean Corpuscular Volume 89.4 fL (81-99); Mean Platelet Vol. 10.1 fl (6.2-12.0); Monocyte# 0.54 X10^3/uL; Monocyte% 9.6 % (0-10); NRBC Flagged by Analyzer 0 % (0-5); Neutrophil # 3.19 X10^3/uL (2.7-7.7); Neutrophil % 56.4 % (47-70); Platelet Count 199 K/mm3 (150-450); RBC Distribution Width CV 13.5 % (11.6-14.6); RBC Distribution Width SD 44.2 fl (35.1-43.9); Red Blood Count 4.24 M/mm3 (4.2-5.4); White Blood Count 5.7 K/mm3 (4.4-11.0)
[2023-09-16 09:14] LABS: ALB/GLOB Ratio 0.9 RATIO (0.9-2.4); AST(SGOT) 17 U/L (15-37); Alanine Aminotransfer ALT/SGPT 19 U/L (13-56); Albumin, Serum 3.1 g/dL (3.2-5.0); Alkaline Phosphatase 65 U/L (45-117); Anion Gap 2 (5-15); BUN 9 mg/dL (7-18); Calcium,Total 8.7 mg/dL (8.5-10.1); Chloride 110 mmol/L (98-107); Cholesterol 277 mg/dL (200); Creatinine, Serum 0.69 mg/dL (0.55-1.02); EST Glomerular Filtration Rate 87 mL/min (>60); Est Glom Filt Rate - Afr Amer 106 mL/min (>60); Estimated Creatinine Clearance 52.47 ml/min; Globulin 3.3 g/dL (2.2-4.2); Glucose 92 mg/dL (74-106); High Density Lipoprotein 63 mg/dL; Potassium 3.7 mmol/L (3.5-5.1); Protein, Total 6.4 g/dL (6.4-8.2); Sodium Level 137 mmol/L (136-145); Triglycerides 145 mg/dL; Very Low Density Lipoprotein 29 mg/dL (5-40)
[2023-09-16 09:29] VITALS: BP 130/89; PULSE 76; RESP 16; TEMP 36.4; O2SAT 95
[2023-09-16] MEDS: Lisinopril 5 MG Tablet PO (09:47)
[2023-09-16] MEDS: Aspirin 81 MG TAB.CHEW PO (09:47)
[2023-09-16] MEDS: busPIRone 5 MG Tablet 7.5 MG PO (09:47)
[2023-09-16] MEDS: Citalopram 20 MG Tablet PO (09:48)
[2023-09-16] MEDS: Pantoprazole Sodium 40 MG Tablet PO (09:48)
[2023-09-16] MEDS: Potassium Chloride Oral Tablet 10 MEQ PO (09:48)
[2023-09-16] MEDS: Clopidogrel Bisulfate 75 MG Tablet PO (09:48)
--- NOTE | 2023-09-16 10:20 | CASEMGMT ---
SW completed a PHQ 9 with patient as she may have had a TIA. Patient scored a 3 which indicates minimal depression. Patient stated she is already on medication for her depression. Patient denies need for counseling. Mariola Fallon SENIOR MANUFACTURING TEST ENGINEER HALLIE
[2023-09-16 10:21] VITALS: BMI 24.5
[2023-09-16 10:23] VITALS: BMI 24.5
--- NOTE | 2023-09-16 11:10 | PCM.DC ---
Discharge Instructions Diet Discharge Diet: Low fat / Low cholesterol Activity Discharge Activity: Return to Normal Activity May resume sexual activity in: No Restrictions Weight Bearing Status: Weight bearing as tolerated Dressing / Incision Call your doctor if you observe: Fever of 101 or Higher, Numbness or Tingling, Inability to urinate, Shortness of breath, Fainting spells, Chest pain, Increased palpitations (irregular heartbeat), Calf discomfort and Uncontrolled pain Follow Up Care Test Results: Test results from this visit will be discussed in further detail at your follow-up appointment, if applicable. Discharge Plan Admission Admit Date/Time: 09/15/23 12:36 Primary Reason for Your Visit: TIA, Hypertension, Hyperlipidemia Attending Provider: Yamilet Arevalo Primary Care Provider: Reed Cuenca Chi Consulting Providers: Devaughn Bartlett; Brady Atkins; Jacy Wan; Nikki Lundy; Marianne Spicer; Randolph Morocho; Flores Don; Steffen Seaman; Lauri Harp; Zahida Hopper; Peter De Jesus; Sariah Blackmon; Gregory Cowan; Joaquin Archer; Nikos Lyman; Stanislav Herndon; Norman Mario; Anahi Craft; Gennaro Tse Instructions Patient Instructions: All About Cholesterol Control, DASH Plan Eat Heart Healthy Food, TIA Dc Additional Instructions / Restrictions: DISCHARGE ADDITIONAL: Per neurology recommendations please continue baby aspirin and Plavix 75 mg daily both for the next 21 days and after this you will transition to taking only aspirin 81 mg daily. During the admission we did restart you on statin therapy and this can be followed with your primary care physician and altered or changed to a different regimen that you tolerate better per their discretion. Please continue the recently started low dose lisinopril blood pressure medication as your blood pressure was above goal during the admission. Please have repeat basic metabolic panel and blood pressure check at follow-up with your primary care physician to assure no further regimen changes with blood pressure medications are necessary. Discharge Orders/Prescriptions Prescriptions: New atorvastatin 40 mg Tablet 40 mg PO QHS 30 Days Qty: 30 0RF clopidogrel 75 mg Tablet 75 mg PO DAILY 21 Days Qty: 21 0RF aspirin 81 mg Tablet,Chewable 81 mg PO BREAKFAST 30 Days Qty: 30 0RF lisinopril 5 mg Tablet 5 mg PO DAILY 30 Days Qty: 30 0RF Continued omeprazole 20 MG capsule,delayed release(DR/EC) 40 mg PO BID Patient Comments: calcium carbonate 500 MG tablet,chewable 600 mg PO DAILY coenzyme Q10 [Co Q-10] 100 MG capsule 200 mg PO DAILY [place] 3-6-9 1,200 MG capsule 1,500 mg PO BID citalopram 10 MG tablet 20 mg PO DAILY zolpidem 10 MG tablet 10 mg PO QHS cholecalciferol (vitamin D3) 1,000 UNIT capsule 1,000 unit PO DAILY cinnamon bark 500 MG capsule 1,000 mg PO DAILY multivitamin [Daily Multi-Vitamin] Tablet 1 tab PO DAILY potassium chloride 10 mEq tablet extended release 10 meq PO DAILY buspirone 7.5 mg tablet 7.5 mg PO BID C Complex 1,000 mg tablet extended release 1,000 mg PO DAILY flaxseed oil 1,000 mg capsule 1,000 mg PO DAILY Culturelle Probiotic-Prebiotic 1 billion cell- 1 gram-15 mg tablet,chewable 1 tab PO DAILY vitamin B complex [Super Quints B-50] Tablet 1 tab PO DAILY Discontinued estradiol 1 MG tablet 1 mg PO DAILY Patient Comments: Referrals / Follow Up: Vincent Oliva MD [Non-Staff -Ordering Privileges] - (Please follow-up with Neurology. Please call office to arrange first visit available.) Reed Cuenca Chi, MD [Primary Care Provider] - (Follow-up within 3-5 days to review admission.) Disposition Disposition (needs filled in before D/C Order can be placed): Home, Self Care
--- NOTE | 2023-09-16 11:21 | CASEMGMT ---
RN CM into pt room, pt dtr present, pt denies any homegoing needs. No PT recommended. Pt lives with sig other and does not use DME. Pt ready to go home to be with her dogs.
--- NOTE | 2023-09-16 11:51 | PHA.DC.MC.R ---
Pharmacy [facility] has performed discharge medication reconciliation and counseling for this patient. 1. ASPIRIN 81MG PO BREAKFAST 2. ATORVASTATIN 40MG PO QHS 3. CLOPIDOGREL 75MG PO DAILY 4. LISINOPRIL 5MG PO DAILY The patient's discharge medication list was reviewed for discrepancies and discrepancies were resolved. The patient was counseled on the following discharge medications and changes in medications for homegoing were reviewed. The Reason for Use, instructions for use, and potential side effects were reviewed for all new medications. The patient's questions regarding all of their medications were answered. The patient was able to verbally demonstrate an understanding of their discharge medications. Patient counseled by clinical pharmacy technician, Braydon. Medications at Discharge Home Medications calcium carbonate 500 mg calcium (1,250 mg) chewable tablet 600 mg PO DAILY 08/17/15 coenzyme Q10 100 mg capsule (Co Q-10) 200 mg PO DAILY 08/17/15 fish, borage, flaxseed oils-omega 3,6,9 comb no.1 1,200 mg capsule ([place] 3-6-9) 1,500 mg PO BID 08/17/15 omeprazole 20 mg capsule,delayed release 40 mg PO BID 08/17/15 cholecalciferol (vitamin D3) 25 mcg (1,000 unit) capsule 1,000 unit PO DAILY 07/07/19 citalopram 10 mg tablet 20 mg PO DAILY 07/07/19 zolpidem 10 mg tablet 10 mg PO QHS 07/07/19 cinnamon bark 500 mg capsule 1,000 mg PO DAILY 03/30/20 B.coagulan,subtilis 1 bill. cell-inulin 1 gram-vit C 15 mg chew tablet (Culturelle Probiotic-Prebiotic) 1 tab PO DAILY 09/15/23 ascorbic acid (vitamin C) 1,000 mg tablet,extended release (C Complex) 1,000 mg PO DAILY 09/15/23 buspirone 7.5 mg tablet 7.5 mg PO BID mood 09/15/23 flaxseed oil 1,000 mg capsule 1,000 mg PO DAILY 09/15/23 multivitamin (Daily Multi-Vitamin tablet) 1 tab PO DAILY supplement 09/15/23 potassium chloride 10 mEq tablet,extended release 10 meq PO DAILY 09/15/23 vitamin B complex (Super Quints B-50 tablet) 1 tab PO DAILY 09/15/23 aspirin 81 mg chewable tablet 81 mg PO BREAKFAST 30 days #30 tabs 09/16/23 atorvastatin 40 mg tablet 40 mg PO QHS 30 days #30 tabs 09/16/23 clopidogrel 75 mg tablet 75 mg PO DAILY 21 days #21 tabs 09/16/23 lisinopril 5 mg tablet 5 mg PO DAILY 30 days #30 tabs 09/16/23
[2023-09-16 13:28] VITALS: BP 113/63; PULSE 74; RESP 16; TEMP 36.5; O2SAT 97
--- NOTE | 2023-09-16 13:43 | PN.NEURO_ITS ---
Objective Data Objective Data Vital Signs: Vital Signs Temp Pulse Resp BP Pulse Ox O2 Del Method 97.7 F L 74 16 113/63 97 Room Air 09/16/23 13:28 09/16/23 13:28 09/16/23 13:28 09/16/23 13:28 09/16/23 13:28 09/16/23 13:28 Oxygen Delivery Method Room Air Weight: 64.9 kg Body Mass Index (BMI) 24.5 Intake & Output: Intake and Output for Last 24 Hours 09/14/23 09/15/23 09/16/23 23:59 23:59 23:59 Intake Total 400 / 400 1000 / 1000 Balance 400 / 400 1000 / 1000 Lab / Micro Data 09/16/23 08:10 09/16/23 08:10 Labs: Laboratory Results - last 24 hr 09/15/23 11:30: Hemoglobin A1c 5.4, TSH 2.59 09/15/23 11:40: Magnesium 2.1 09/16/23 08:10: WBC 5.7, RBC 4.24, Hgb 12.2, Hct 37.9, MCV 89.4, MCH 28.8, MCHC 32.2, RDW Std Deviation 44.2 H, RDW Coeff of Darlene 13.5, Plt Count 199, MPV 10.1, Immature Gran % (Auto) 0.200, Neut % (Auto) 56.4, Lymph % (Auto) 31.0, Villalba % (Auto) 9.6, Eos % (Auto) 1.9, Baso % (Auto) 0.9, Absolute Neuts (auto) 3.2, Absolute Lymphs (auto) 1.75, Nucleated RBC % 0, Sodium 137, Potassium 3.7, Chloride 110 H, Carbon Dioxide 25.0, Anion Gap 2 L, BUN 9, Creatinine 0.69, Estim Creat Clear Calc 52.47, Est GFR (MDRD) Af Amer 106, Est GFR (MDRD) Non-Af 87, BUN/Creatinine Ratio 13.0, Glucose 92, Calcium 8.7, Total Bilirubin 0.40, AST 17, ALT 19, Alkaline Phosphatase 65, Total Protein 6.4, Albumin 3.1 L, Globulin 3.3, Albumin/Globulin Ratio 0.9, Triglycerides 145, Cholesterol 277 H, LDL Cholesterol 185 H, VLDL Cholesterol 29, HDL Cholesterol 63 Radiography Diagnostic Testing: Radiology Impression Brain MRI 09/15/23 00:00 IMPRESSION: Left sphenoid sinusitis. Possible inspissated secretions. Consider fungal infection. Otherwise Normal unenhanced MRI of the brain. Electronically Signed: Yaw Moise MD at 21:31 EST , Chest X-Ray 09/15/23 13:44 IMPRESSION: No radiographic evidence of acute cardiopulmonary disease. Probable hiatal hernia. Electronically Signed: Ankush Cruz MD at 13:58 EST , Echocardiogram 09/15/23 13:58 Interpretation Summary The left ventricular ejection fraction is 65 %. Diastolic function is indeterminate. Bubble contrast study is negative for PFO/ASD. Right ventricular systolic pressure estimated to be 36 mmHg. Mild tricuspid valve insufficiency. Calcified aortic root. The study was technically difficult. Ordering Physician: Yamilet Arevalo Referring Physician: Reed Cuenca Chi Performed By: Esme Zaldivar, CECILIA, RVT Physical Exam Neuro Neuro Narrative: Neurological examination: General:?The patient appears nutritionally appropriate, well-groomed, and appears comfortable in no acute distress.?Mental Status:??The patient?s mental status was normal including orientation.? Language was intact.??Cranial nerves:? Visual gambino full, , and extra-ocular motion was intact. Face motion symmetric.? Bilateral shoulder shrug was intact.? Tongue was midline with normal movement.? There was no dysarthria.?Motor:?Normal strength and tone in all four extremities. No pronator drift.?Sensation:?Intact light touch bilaterally, no extinction.??Coordination:? Bilateral finger to nose was normal.? There was no dysmetria.?Gait:? deferred Subject: Neurology Subjective Patient feels at baseline this AM. No new complaints. EEG Results Procedure Details EEG Procedure Details: ILAN HERZOG is a 73 year old F with a past medical history of , who presents for evaluation of Electroencephalogram on DATE at TIME Assessment and Plan: Stroke Assessment/Plan ILAN HERZOG is a 73 yo RH F with a history of hypertensino, anxiety, and GERD who on 09/15/2023 at 930a developed a transient episode of right sided numbness (face/arm/leg) that lasted 20 minutes then resolved. No prior episodes. She had a headache at the start of the episode. She presented to [facility]. Telestroke by Dr. De Jesus showed NIHSS-0. CT brain and CT angiogram head/neck negative. She was admitted for TIA work-up. LDL 185, HgbA1c 5.4. TTE EF 65%. MRI brain DWI negative. Neurological examination nonfocal, NIHSS-0 Assessment/Plan: TIA TIA work-up completed. Patient started on dual anti-platelet medication (Asa/plavix). Recommend Asa/plavix x 21 days per [facility] protocol, and then Asa 81mg only thereafter. Continue vascular risk factor modification. Started on lipitor 40. Patient may discharge home. Messaged primary Dr. Arevalo with my recommendations.
== END 2023-09-16 11:06 | disposition home or self-care (01) ==
LOC: ED 12:55 → PCU 12:57
PROVIDERS: Admitting Provider Family Medicine; Emergency Provider Emergency Medicine; PCP Family Medicine Geriatric Medicine; Visit Provider Family Medicine
DX: R29.810 Facial weakness (principal); R20.2 Paresthesia of skin; E78.00 Pure hypercholesterolemia, unspecified; I10 Essential (primary) hypertension; F41.9 Anxiety disorder, unspecified; K21.9 Gastro-esophageal reflux disease without esophagitis; R20.0 Anesthesia of skin; Z79.899 Other long term (current) drug therapy; F32.A Depression, unspecified
CPT/HCPCS: 36415; 70450; 70496; 70498; 70551; 71045; 80048; 80053; 80061; 82962; 83036; 83735; 84443; 84484; 85025; 85610; 85730; 93005; 93306; 94668; 94762; 96360; 96361; 97161; 99221; 99285; J7030; Q9967; G0378

== ENCOUNTER → 2023-11-02 | Outpatient (CLI) | payer MEDICARE, SELFPAY ==
[2023-11-02 14:10] LABS: Absolute Lymphocyte Count 2.47 X10^3/uL (0.83-4.51); Absolute Neutrophil Count 5.1 X10^3/uL (2.0-7.7); Basophil# 0.07 X10^3/uL; Basophil% 0.8 % (0-1); Eosinophil# 0.15 X10^3/uL; Eosinophils% 1.8 % (0-5); Hematocrit 40.6 % (37-47); Hemoglobin 12.5 g/dL (12.0-15.0); Lymphocyte # 2.47 X10^3/ul (0.83-4.51); Lymphocyte % 29.1 % (19-41); Mean Corp Hgb Conc 30.8 g/dL (32-36); Mean Corpuscular Hgb 28.1 pg (27.0-32.0); Mean Corpuscular Volume 91.2 fL (81-99); Mean Platelet Vol. 10.3 fl (6.2-12.0); Monocyte# 0.68 X10^3/uL; NRBC Flagged by Analyzer 0 % (0-5); Neutrophil # 5.09 X10^3/uL (2.7-7.7); Neutrophil % 59.9 % (47-70); Platelet Count 228 K/mm3 (150-450); RBC Distribution Width CV 13.4 % (11.6-14.6); RBC Distribution Width SD 45.2 fl (35.1-43.9); Red Blood Count 4.45 M/mm3 (4.2-5.4); White Blood Count 8.5 K/mm3 (4.4-11.0)
[2023-11-02 14:25] LABS: Vitamin D,25 Hydroxy 104.7 ng/mL
[2023-11-02 14:30] LABS: ALB/GLOB Ratio 0.9 RATIO (0.9-2.4); AST(SGOT) 20 U/L (15-37); Alanine Aminotransfer ALT/SGPT 20 U/L (13-56); Albumin, Serum 3.3 g/dL (3.2-5.0); Alkaline Phosphatase 94 U/L (45-117); Anion Gap 5 (5-15); BUN 11 mg/dL (7-18); BUN/Creat Ratio 13.5 RATIO (10-20); Calcium,Total 8.6 mg/dL (8.5-10.1); Chloride 104 mmol/L (98-107); Cholesterol 211 mg/dL (200); Creatinine, Serum 0.82 mg/dL (0.55-1.02); EST Glomerular Filtration Rate 72 mL/min (>60); Est Glom Filt Rate - Afr Amer 88 mL/min (>60); Globulin 3.6 g/dL (2.2-4.2); Glucose 116 mg/dL (74-106); High Density Lipoprotein 71 mg/dL; Potassium 3.8 mmol/L (3.5-5.1); Protein, Total 6.9 g/dL (6.4-8.2); Sodium Level 135 mmol/L (136-145); Thyroid Stim Hormone (TSH) 1.49 uIU/mL (0.358-3.74); Triglycerides 194 mg/dL; Very Low Density Lipoprotein 39 mg/dL (5-40)
== END | disposition home or self-care (01) ==
LOC: POLAB3 13:35
PROVIDERS: PCP Family Medicine Geriatric Medicine; Visit Provider Family Medicine Geriatric Medicine
DX: I10 Essential (primary) hypertension (principal); E55.9 Vitamin D deficiency, unspecified; E78.5 Hyperlipidemia, unspecified
CPT/HCPCS: 36415; 80053; 80061; 82306; 84443; 85025

== ENCOUNTER → 2024-01-07 | Outpatient (CLI) | payer MEDICARE, SELFPAY ==
--- NOTE | 2024-01-07 14:48 | RAD_ITS ---
EXAM: XR RIGHT KNEE, 3 VIEWS CLINICAL INDICATION: FALL TECHNIQUE: Three views of the right knee. COMPARISON: No relevant prior studies available. FINDINGS: BONES/JOINTS: No acute fracture, subluxation or joint effusion. SOFT TISSUES: Normal. No soft tissue swelling or gas. No radiopaque foreign body. RAD/Knee 3 Views IMPRESSION: Intact right knee. Electronically Signed: Lei Barraza MD at 12:23 EDT ,
[2024-01-07 15:19] LABS: Absolute Lymphocyte Count 1.97 X10^3/uL (0.83-4.51); Absolute Neutrophil Count 5.1 X10^3/uL (2.0-7.7); Basophil# 0.04 X10^3/uL; Basophil% 0.5 % (0-1); Eosinophil# 0.08 X10^3/uL; Hemoglobin 12.7 g/dL (12.0-15.0); Lymphocyte # 1.97 X10^3/ul (0.83-4.51); Lymphocyte % 25.7 % (19-41); Mean Corp Hgb Conc 31.8 g/dL (32-36); Mean Corpuscular Hgb 28.6 pg (27.0-32.0); Mean Corpuscular Volume 90.1 fL (81-99); Mean Platelet Vol. 10.1 fl (6.2-12.0); Monocyte% 6.5 % (0-10); NRBC Flagged by Analyzer 0 % (0-5); Neutrophil # 5.06 X10^3/uL (2.7-7.7); Platelet Count 212 K/mm3 (150-450); RBC Distribution Width CV 13.2 % (11.6-14.6); RBC Distribution Width SD 43.6 fl (35.1-43.9); Red Blood Count 4.44 M/mm3 (4.2-5.4); White Blood Count 7.7 K/mm3 (4.4-11.0)
[2024-01-07 16:41] LABS: ALB/GLOB Ratio 0.9 RATIO (0.9-2.4); AST(SGOT) 24 U/L (15-37); Alanine Aminotransfer ALT/SGPT 28 U/L (13-56); Albumin, Serum 3.4 g/dL (3.2-5.0); Alkaline Phosphatase 104 U/L (45-117); Anion Gap 8 (5-15); BUN 14 mg/dL (7-18); BUN/Creat Ratio 16.7 RATIO (10-20); Calcium,Total 8.9 mg/dL (8.5-10.1); Chloride 105 mmol/L (98-107); Creatinine, Serum 0.84 mg/dL (0.55-1.02); EST Glomerular Filtration Rate 71 mL/min (>60); Est Glom Filt Rate - Afr Amer 85 mL/min (>60); Globulin 3.6 g/dL (2.2-4.2); Glucose 88 mg/dL (74-106); Potassium 4.4 mmol/L (3.5-5.1); Sodium Level 135 mmol/L (136-145); Thyroid Stim Hormone (TSH) 1.51 uIU/mL (0.358-3.74)
== END | disposition home or self-care (01) ==
LOC: RAD 14:42
PROVIDERS: PCP Family Medicine Geriatric Medicine; Referring Provider Family Medicine Geriatric Medicine; Visit Provider Family Medicine Geriatric Medicine
DX: S09.90XA Unspecified injury of head, initial encounter (principal); W19.XXXA Unspecified fall, initial encounter; M25.561 Pain in right knee; I10 Essential (primary) hypertension
CPT/HCPCS: 36415; 73562; 80053; 84443; 85025

== ENCOUNTER → 2024-01-28 | Outpatient (CLI) | payer MEDICARE, SELFPAY ==
--- NOTE | 2024-01-28 10:15 | MRI_ITS ---
EXAM: MR ANGIOGRAPHY NECK WITHOUT AND WITH INTRAVENOUS CONTRAST CLINICAL INDICATION: CLOSED HEAD INJURY; FALL TECHNIQUE: Routine carotid MR angiogram protocol was performed without and with intravenous contrast. 3D reconstructions were reviewed. NASCET criteria using the distal ICAs for comparison were used for evaluation of stenoses. CONTRAST: 13CC CLARISCAN COMPARISON: MRI brain on the same date. CTA head and neck, 09/15/2023. FINDINGS: RIGHT COMMON CAROTID ARTERY: No significant abnormality. No occlusion or significant stenosis. No dissection. RIGHT INTERNAL CAROTID ARTERY: No significant abnormality. Extracranial segment is patent with no occlusion or significant stenosis. No dissection. RIGHT EXTERNAL CAROTID ARTERY: No significant abnormality. No occlusion. RIGHT VERTEBRAL ARTERY: No significant abnormality. No occlusion or significant stenosis. No dissection. LEFT COMMON CAROTID ARTERY: No significant abnormality. No occlusion or significant stenosis. No dissection. LEFT INTERNAL CAROTID ARTERY: No significant abnormality. Extracranial segment is patent with no occlusion or significant stenosis. No dissection. LEFT EXTERNAL CAROTID ARTERY: No significant abnormality. No occlusion. LEFT VERTEBRAL ARTERY: No significant abnormality. No occlusion or significant stenosis. No dissection. CAROTID STENOSIS REFERENCE USING NASCET CRITERIA: % ICA stenosis = (1 - narrowest ICA diameter/diameter of distal cervical ICA) x 100. Mild - <50% stenosis. Moderate - 50-69% stenosis. Severe - 70-94% stenosis. Near occlusion - 95-99% stenosis. Occluded - 100% stenosis. MRI/MRA Neck WITH and W/O Contrast IMPRESSION: Unremarkable MRA neck. Electronically Signed: Jose G Haro DO at 0:04 EDT ,
--- NOTE | 2024-01-28 10:18 | MRI_ITS ---
EXAM: MR HEAD WITHOUT INTRAVENOUS CONTRAST CLINICAL INDICATION: CLOSED HEAD INJURY TECHNIQUE: Multiplanar and multisequence MR images of the brain were obtained without intravenous contrast. COMPARISON: MRA neck on the same date. MRI brain, 09/15/2023. FINDINGS: BRAIN AND EXTRA-AXIAL SPACES: Age-appropriate global parenchymal volume loss. No hydrocephalus. Patent basal cisterns. No restricted diffusion to indicate recent infarct or other pathology. No acute intracranial hemorrhage or pathologic extra-axial fluid. No intracranial mass, mass effect, or shift of midline structures. Minimal periventricular and scattered subcortical T2 and T2 FLAIR hyperintensity is nonspecific although most commonly due to chronic microvascular ischemic changes in a patient of this age. Posterior fossa structures are unremarkable. SELLA: No significant abnormality. Normal sella turcica, pituitary gland, infundibular stalk, optic chiasm and hypothalamus. AUDITORY SYSTEM: No significant abnormality. The internal auditory canals are patent. BONES/JOINTS: No significant abnormality. No discrete lytic or blastic abnormalities. SINUSES: Heterogenous hypointense T2 signal and low ADC within the left sphenoid sinus perhaps secondary to inspissated secretions or fungal elements. MASTOID AIR CELLS: Normal as visualized. Clear. ORBITS: Bilateral ocular lens extraction presumptively for the treatment of cataracts. Otherwise, no acute orbital pathology. VASCULATURE: Normal as visualized. Normal flow voids in the major intracranial circulation. MRI/Brain without Contrast IMPRESSION: 1. Chronic microvascular ischemic changes and mild global parenchymal volume loss. No evidence of acute intracranial pathology. 2. Heterogenous hypointense T2 signal and low ADC within the left sphenoid sinus perhaps secondary to inspissated secretions or fungal elements. Consider ENT consultation. Electronically Signed: Jose G Haro DO at 0:03 EDT ,
== END | disposition home or self-care (01) ==
PROVIDERS: PCP Family Medicine Geriatric Medicine; Referring Provider Family Medicine Geriatric Medicine; Visit Provider Family Medicine Geriatric Medicine
DX: S09.90XA Unspecified injury of head, initial encounter (principal); W19.XXXA Unspecified fall, initial encounter; M25.561 Pain in right knee
CPT/HCPCS: 70549; 70551; A9575; A4216

== ENCOUNTER → 2024-02-29 | Outpatient (CLI) | payer MEDICARE, SELFPAY | END | disposition home or self-care (01) | LOC: PSN 08:09 | PROVIDERS: PCP Family Medicine Geriatric Medicine; Referring Provider Family Medicine Geriatric Medicine; Visit Provider Family Medicine Geriatric Medicine | DX: R55 Syncope and collapse (principal) | CPT/HCPCS: 95819 ==

== ENCOUNTER 2024-04-12 18:50 | Emergency (ER) | payer MEDICARE, SELFPAY ==
[2024-04-12 18:50] VITALS: BP 175/109; PULSE 65; RESP 18; TEMP 36.7; O2SAT 98; BMI 25.0
--- NOTE | 2024-04-12 18:51 | CT_ITS ---
STUDY: CT BRAIN WITHOUT CONTRAST REASON FOR EXAM: Female, 74 years old. fall, head injury RADIATION DOSAGE (If Supplied By Facility): CTDIvol = ( 47.06 ) mGy, DLP = ( 855.03 ) mGycm TECHNIQUE: Transaxial CT imaging of the brain was performed without administration of intravenous contrast material. Individualized dose optimization techniques were used for this CT. COMPARISON: No relevant priors. FINDINGS: Soft tissue swelling overlying the right frontal bone without associated skull fracture Mild atrophy and periventricular white matter ischemic changes. Normal basal ganglia and thalami. Normal brainstem. Normal cerebellum. There is no intracranial hemorrhage. There are no findings of an acute ischemic infarction. Diffuse opacification of left sphenoid sinus. Postsurgical changes of the orbits CT/Brain/Head without Contrast IMPRESSION: Soft tissue swelling overlying the right frontal bone without associated skull fracture or acute intracranial bleed. Mild atrophy and periventricular white matter ischemic changes Electronically Signed: Stephen Ramirez MD at 20:02 EDT ,
--- NOTE | 2024-04-12 18:51 | CT_ITS ---
STUDY: CT CERVICAL SPINE WITHOUT CONTRAST REASON FOR EXAM: Female, 74 years old. fall, neck pain RADIATION DOSAGE (If Supplied By Facility): CTDIvol = ( 14.69 ) mGy, DLP = ( 244.50 ) mGycm TECHNIQUE: High resolution transaxial imaging was performed without contrast material. Sagittal and coronal images were reconstructed. Individualized dose optimization techniques were used for this CT. COMPARISON: None FINDINGS: Normal craniovertebral junction. Normal anterior atlantoaxial articulation. Normal odontoid process. Mild cervical kyphosis possibly due to muscle spasm or positioning artifact Normal vertebral bodies and posterior osseous elements. C2-3: Normal endplates. Normal disc height and morphology. Normal central canal and intervertebral neuroforamina. C3-4: Normal endplates. Normal disc height and morphology. Normal central canal and intervertebral neuroforamina. C4-5: Narrowed disc space and minor endplate spurring.. Normal central canal and intervertebral neuroforamina. C5-6: Narrowed disc space and mild endplate spurring.. Normal central canal. Mild to moderate bilateral neural foraminal stenosis secondary to bony hypertrophy C6-7: Narrowed disc space and mild endplate spurring.. Normal central canal and intervertebral neuroforamina. C7-T1: Normal endplates. Normal disc height and morphology. Normal central canal and intervertebral neuroforamina. Normal visualized soft tissue structures. CT/Spine Cervical without Contras IMPRESSION: Mild spondylosis. No evidence for acute fracture or subluxation. Electronically Signed: Stephen Ramirez MD at 20:21 EDT ,
--- NOTE | 2024-04-12 18:55 | CT_ITS ---
STUDY: CT FACIAL BONES WITHOUT CONTRAST REASON FOR EXAM: Female, 74 years old. facial trauma RADIATION DOSAGE (If Supplied By Facility): CTDIvol = ( 25.01 ) mGy, DLP = ( 479.87 ) mGycm TECHNIQUE: The patient was scanned in a multi detector CT scanner. Sagittal and coronal images were reconstructed. Individualized dose optimization techniques were used for this CT. COMPARISON: None. FINDINGS: Soft tissue swelling overlying the right frontal bone without associated skull fracture. Tiny radiopaque metallic foreign body noted within the soft tissues anterior to the maxillary spine Normal orbital greene and orbital contents. Normal nasal bones and anterior nasal spine. Normal facial bones. There is no demonstrated fracture. Mild mucosal thickening right maxillary sinus. Diffuse opacification of left sphenoid sinus CT/Sinus/Facial Bone IMPRESSION: Tiny metallic foreign body seen within the soft tissues anterior to the maxillary spine without definitive evidence for acute fracture Soft tissue swelling overlying the right frontal bone without associated acute skull or other facial bone fracture Electronically Signed: Stephen Ramirez MD at 20:06 EDT ,
--- NOTE | 2024-04-12 19:25 | EX.ED.GENINJ ---
HPI History of Present Illness Chief Complaint: Head Injury [facility] Medical History Sphenoid sinusitis Low back pain Vitamin D deficiency Hyperlipidemia Insomnia Fall Facial droop Orthostatic hypotension Right knee pain Closed head injury Near syncope Syncope Chest pain History of CVA (cerebrovascular accident) TIA (transient ischemic attack) History of hypertension Hx of hypercholesterolemia GERD (gastroesophageal reflux disease) Anxiety HTN (hypertension) Home Medications ?Medication ?Instructions ?Recorded ?Last Taken ?Type zolpidem 10 mg tablet 10 mg PO QHS 07/07/19 09/15/23 History buspirone 7.5 mg tablet 7.5 mg PO BID mood 09/15/23 09/15/23 History potassium chloride 10 mEq 10 meq PO DAILY 09/15/23 09/15/23 History tablet,extended release aspirin 81 mg chewable tablet 81 mg PO BREAKFAST 30 days #30 tabs 09/16/23 Unknown Rx atorvastatin 40 mg tablet 40 mg PO QHS 30 days #30 tabs 09/16/23 Unknown Rx estradiol 1 mg tablet 1 mg PO QDAY 02/26/24 Unknown History omeprazole 20 mg capsule,delayed 20 mg PO BID 02/26/24 Unknown History release citalopram 10 mg tablet 20 mg PO DAILY 03/31/24 Unknown History lisinopril 5 mg tablet 5 mg PO QDAY 03/31/24 Unknown History Allergy/AdvReac Type Severity Reaction Status Date / Time adhesive Allergy Rash Verified 03/31/24 11:11 metaxalone (From Skelaxin) Allergy Rash Verified 03/31/24 11:11 tramadol Allergy Itching Verified 03/31/24 11:11 codeine AdvReac Intermediate Other Verified 03/31/24 11:11 amitriptyline AdvReac Mucosal Verified 03/31/24 11:11 lesions budesonide (From Symbicort) AdvReac Mucosal Verified 03/31/24 11:11 lesions clarithromycin (From Biaxin) AdvReac Upset Verified 03/31/24 11:11 Stomach erythromycin base AdvReac Upset Verified 03/31/24 11:11 Stomach formoterol fumarate (From AdvReac Mucosal Verified 03/31/24 11:11 Symbicort) lesions naproxen AdvReac Upset Verified 03/31/24 11:11 Stomach Family History Mother CVA (cerebral vascular accident) Heart disease Hypertension Father CVA (cerebral vascular accident) Heart disease Hypertension AA (aortic aneurysm) Brother Heart disease Aunt Heart disease Grandmother Cancer ovarian Surgical History Hx of hand surgery Hx of tubal ligation S/P foot surgery, left History of tonsillectomy and adenoidectomy S/P total abdominal hysterectomy History of arthroscopic surgery of shoulder Social History household members: significant other Smoking Status: Never smoker alcohol intake: never substance use type: does not use EXAM Physical Exam Const Vital Signs: 04/12/24 18:50 04/12/24 19:21 04/12/24 19:50 Temperature 98.1 F Temperature Source Oral Pulse Rate 65 68 Respiratory Rate 18 20 H Respiratory Effort Normal Non-Labored Respiratory Depth Normal Respiratory Pattern Normal Blood Pressure 175/109 H 166/79 H Blood Pressure Mean 131 108 Pulse Ox 98 Oxygen Delivery Method Room Air Room Air Room Air 04/12/24 20:00 04/12/24 21:00 Temperature Temperature Source Pulse Rate 68 74 Respiratory Rate 16 Respiratory Effort Respiratory Depth Respiratory Pattern Blood Pressure 164/67 H 153/62 H Blood Pressure Mean 99 92 Pulse Ox 96 Oxygen Delivery Method Room Air [facility] MDM MDM Narrative Medical decision making narrative: HISTORY OF PRESENT ILLNESS: 74-year-old female presents with fall. Endorse mechanical fall. No she tripped over a rug. Notes hit her head on concrete floor. Notes a large hematoma to right taoist. Notes headache and nasal pain. Denies blood thinners or loss of consciousness REVIEW OF SYSTEMS: Pertinent positives: Headache Pertinent negatives: Focal numbness or weakness PHYSICAL EXAM: Nursing triage notes reviewed, Vital signs reviewed Constitutional: please see mdm HENT: MMM, cephalhematoma noted right taoist, no hemotympanum, no nasal hematoma, no intraoral lesions, no jaw malocclusion Eyes: Pupils equal round and reactive to light, Extraocular muscles intact Neck: No stridor, no JVD, full neck ROM, no step-offs deformities to the cervical spine Lungs: Clear to auscultation, No wheezing or rales. No increased work of breathing, no conversational dyspnea, no accessory muscle use, no nasal flaring. No respiratory distress noted Heart: Regular rate and rhythm, No murmurs, No rubs and No gallops, 2+ distal pulses (radial, femoral, posterior tibial) in all extremities Abdomen: Soft, there is no tenderness, rigidity, rebound or guarding, no obvious peritoneal signs, no palpable pulsatile abdominal masses, no auscultated abdominal bruit : No CVAT Extremities: No edema Neuro: No focal neurological deficits, cranial nerves II through XII intact, 5/5 strength in all extremities. Intact sensation to light touch in all extremities, 2+ reflexes bilateral patella tendons. Normal gait. No ataxia. Skin: No rash or lesions noted MEDICAL DECISION MAKING: Chief Complaint: Head trauma External records reviewed: Medications reviewed: No blood thinners noted Factors affecting care: Hyperlipidemia, hypertension, CVA MDM Narrative: Patient was initially hypertensive with a blood pressure 175/109 otherwise afebrile and nontoxic-appearing. Exam with obvious cephalhematoma consistent with severe head trauma. I considered the following differential diagnosis: ICH, closed head injury, concussion, subarachnoid hemorrhage I obtain imaging studies to further elucidate etiology of the patient's complaint ALL IMAGES (IF OBTAINED) HAVE BEEN PERSONALLY REVIEWED AND INTERPRETED BY MYSELF. CT scan of the head, CT of cervical spine, CT scan of the face showed no acute traumatic injury Tylenol, ibuprofen, icing instructions were given. On reevaluation patient blood pressure improved 153/62. Tertiary exam without new injury. Patient appropriate discharge home. Strict return precaution were discussed per concussion precautions were discussed The patient and/or family, caregivers express understanding. The patient and/or family, caregivers agrees with the plan. Shared decision making: I will have a discussion with the patient and or visitors regarding risk/benefits of further testing or admission. They will be made aware of of the risk/benefits inherent in this decision they will be given the opportunity to voice understanding. Total critical care time today provided was at least 0 minutes. This excludes separately billable procedures. Critical care time (if documented) is secondary to the patient having high probability of clinically significant/life threatening deterioration in the patient's condition which required my urgent intervention. Impression: 1. Closed head injury 2. Cephalhematoma Dispo: Discharge home This note was generated with [employer] dictation software. It may contain incorrect words, spelling, and punctuation that were not noted in review of the chart prior to signing. Radiography Diagnostic Testing: Clinical Impression(s) from Imaging Studies Brain CT 04/12/24 18:51 IMPRESSION: Soft tissue swelling overlying the right frontal bone without associated skull fracture or acute intracranial bleed. Mild atrophy and periventricular white matter ischemic changes Electronically Signed: Stephen Ramirez MD at 20:02 EDT , Cervical Spine CT 04/12/24 18:51 IMPRESSION: Mild spondylosis. No evidence for acute fracture or subluxation. Electronically Signed: Stephen Ramirez MD at 20:21 EDT , Facial/Sinus 04/12/24 18:55 IMPRESSION: Tiny metallic foreign body seen within the soft tissues anterior to the maxillary spine without definitive evidence for acute fracture Soft tissue swelling overlying the right frontal bone without associated acute skull or other facial bone fracture Electronically Signed: Stephen aRmirez MD at 20:06 EDT , Discharge Plan Triage Chief Complaint: Head Injury ED Provider: Ahmet Han Dx/Rx/DC Orders Prescriptions: No Action estradiol 1 mg tablet 1 mg PO QDAY Patient Comments: take 1 tablet by mouth once daily lisinopril 5 mg tablet 5 mg PO QDAY omeprazole 20 mg capsule,delayed release(DR/EC) 20 mg PO BID Patient Comments: zolpidem 10 MG tablet 10 mg PO QHS citalopram 10 mg tablet 20 mg PO DAILY potassium chloride 10 mEq tablet extended release 10 meq PO DAILY buspirone 7.5 mg tablet 7.5 mg PO BID atorvastatin 40 mg Tablet 40 mg PO QHS 30 Days Qty: 30 0RF aspirin 81 mg Tablet,Chewable 81 mg PO BREAKFAST 30 Days Qty: 30 0RF Primary Care Provider: Reed Cuenca Chi Referrals: Reed Cuenca Chi, MD [Primary Care Provider] - Print Language: Lithuanian
[2024-04-12 19:50] VITALS: BP 166/79; PULSE 68; RESP 20
[2024-04-12] MEDS: oxyCODONE 5 MG Tablet PO (19:52)
[2024-04-12 20:00] VITALS: BP 164/67; PULSE 68
[2024-04-12 21:00] VITALS: BP 153/62; PULSE 74; RESP 16; O2SAT 96
[2024-04-12 21:34] VITALS: PULSE 82; RESP 18; TEMP 36.5; O2SAT 93
== END 2024-04-12 21:36 | disposition home or self-care (01) ==
PROVIDERS: Emergency Provider Emergency Medicine; PCP Family Medicine Geriatric Medicine; Visit Provider Emergency Medicine
DX: S06.2XAA Diffuse traumatic brain injury with loss of consciousness status unknown, initial encounter (principal); I10 Essential (primary) hypertension; E78.00 Pure hypercholesterolemia, unspecified; Z79.899 Other long term (current) drug therapy; Z86.73 Personal history of transient ischemic attack (TIA), and cerebral infarction without residual deficits; W19.XXXA Unspecified fall, initial encounter
CPT/HCPCS: 70450; 70486; 72125; 99282

== ENCOUNTER 2024-04-15 11:16 | Outpatient (CLI) | payer MEDICARE, SELFPAY ==
[2024-04-15 11:40] VITALS: BP 130/59; PULSE 82; RESP 16; TEMP 36.1; O2SAT 95; BMI 25.5
[2024-04-15] MEDS: 0.9% NaCl Peripheral Flush Adult/Peds IV (11:55)
[2024-04-15] MEDS: 0.9% Normal Saline (1000mL) 1,000 ML 999 ML IV ×2 (11:56→12:59)
[2024-04-15 14:10] VITALS: BP 138/61; PULSE 75; RESP 16; TEMP 36.3; O2SAT 99
== END 2024-04-15 23:59 | disposition home or self-care (01) ==
LOC: MEDOUTP 11:17
PROVIDERS: PCP Family Medicine Geriatric Medicine; Referring Provider Family Medicine Geriatric Medicine; Visit Provider Family Medicine Geriatric Medicine
DX: E86.0 Dehydration (principal)
CPT/HCPCS: 96360; 96361; J7030; A4216

== ENCOUNTER → 2024-05-10 | Outpatient (CLI) | payer MEDICARE, SELFPAY ==
[2024-05-10 13:18] LABS: Absolute Lymphocyte Count 1.73 X10^3/uL (0.83-4.51); Basophil# 0.04 X10^3/uL; Basophil% 0.6 % (0-1); Eosinophil# 0.08 X10^3/uL; Eosinophils% 1.3 % (0-5); Hematocrit 40.8 % (37-47); Hemoglobin 12.7 g/dL (12.0-15.0); Lymphocyte # 1.73 X10^3/ul (0.83-4.51); Lymphocyte % 27.1 % (19-41); Mean Corp Hgb Conc 31.1 g/dL (32-36); Mean Corpuscular Volume 86.6 fL (81-99); Mean Platelet Vol. 9.9 fl (6.2-12.0); Monocyte# 0.48 X10^3/uL; Monocyte% 7.5 % (0-10); NRBC Flagged by Analyzer 0 % (0-5); Neutrophil # 4.04 X10^3/uL (2.7-7.7); Neutrophil % 63.2 % (47-70); Platelet Count 231 K/mm3 (150-450); RBC Distribution Width CV 13.9 % (11.6-14.6); Red Blood Count 4.71 M/mm3 (4.2-5.4); White Blood Count 6.4 K/mm3 (4.4-11.0)
[2024-05-10 13:56] LABS: Vitamin D,25 Hydroxy 43.6 ng/mL
[2024-05-10 14:05] LABS: ALB/GLOB Ratio 0.9 RATIO (0.9-2.4); AST(SGOT) 19 U/L (15-37); Alanine Aminotransfer ALT/SGPT 26 U/L (13-56); Albumin, Serum 3.4 g/dL (3.2-5.0); Alkaline Phosphatase 132 U/L (45-117); Anion Gap 5 (5-15); BUN 14 mg/dL (7-18); BUN/Creat Ratio 15.2 RATIO (10-20); Calcium,Total 9.1 mg/dL (8.5-10.1); Chloride 106 mmol/L (98-107); Cholesterol 201 mg/dL (200); Creatinine, Serum 0.92 mg/dL (0.55-1.02); EST Glomerular Filtration Rate 63 mL/min (>60); Est Glom Filt Rate - Afr Amer 76 mL/min (>60); Globulin 3.9 g/dL (2.2-4.2); Glucose 119 mg/dL (74-106); High Density Lipoprotein 66 mg/dL; Potassium 4.2 mmol/L (3.5-5.1); Protein, Total 7.3 g/dL (6.4-8.2); Sodium Level 135 mmol/L (136-145); Triglycerides 207 mg/dL; Very Low Density Lipoprotein 41 mg/dL (5-40)
== END | disposition home or self-care (01) ==
LOC: POLAB3 13:08
PROVIDERS: PCP Family Medicine Geriatric Medicine; Referring Provider Family Medicine Geriatric Medicine; Visit Provider Family Medicine Geriatric Medicine
DX: I10 Essential (primary) hypertension (principal); E78.5 Hyperlipidemia, unspecified; E55.9 Vitamin D deficiency, unspecified
CPT/HCPCS: 36415; 80053; 80061; 82306; 84443; 85025

== ENCOUNTER → 2024-08-23 | Outpatient (CLI) | payer MEDICARE, SELFPAY ==
[2024-08-23 15:33] LABS: Absolute Lymphocyte Count 2.16 X10^3/uL (0.83-4.51); Absolute Neutrophil Count 4.3 X10^3/uL (2.0-7.7); Basophil# 0.07 X10^3/uL; Eosinophil# 0.11 X10^3/uL; Eosinophils% 1.5 % (0-5); Hematocrit 41.4 % (37-47); Hemoglobin 12.8 g/dL (12.0-15.0); Lymphocyte # 2.16 X10^3/ul (0.83-4.51); Lymphocyte % 29.9 % (19-41); Mean Corp Hgb Conc 30.9 g/dL (32-36); Mean Corpuscular Hgb 26.7 pg (27.0-32.0); Mean Corpuscular Volume 86.4 fL (81-99); Mean Platelet Vol. 10.8 fl (6.2-12.0); Monocyte# 0.61 X10^3/uL; Monocyte% 8.4 % (0-10); NRBC Flagged by Analyzer 0 % (0-5); Neutrophil # 4.27 X10^3/uL (2.7-7.7); Neutrophil % 59.1 % (47-70); Platelet Count 287 K/mm3 (150-450); RBC Distribution Width CV 14.7 % (11.6-14.6); RBC Distribution Width SD 47.1 fl (35.1-43.9); Red Blood Count 4.79 M/mm3 (4.2-5.4); White Blood Count 7.2 K/mm3 (4.4-11.0)
[2024-08-23 16:22] LABS: ALB/GLOB Ratio 0.9 RATIO (0.9-2.4); AST(SGOT) 18 U/L (15-37); Alanine Aminotransfer ALT/SGPT 29 U/L (13-56); Albumin, Serum 3.5 g/dL (3.2-5.0); Alkaline Phosphatase 196 U/L (45-117); Anion Gap 9 (5-15); BUN 12 mg/dL (7-18); BUN/Creat Ratio 11.1 RATIO (10-20); Calcium,Total 8.2 mg/dL (8.5-10.1); Chloride 103 mmol/L (98-107); Cholesterol 202 mg/dL (200); Creatinine, Serum 1.08 mg/dL (0.55-1.02); EST Glomerular Filtration Rate 52 mL/min (>60); Est Glom Filt Rate - Afr Amer 63 mL/min (>60); Globulin 3.8 g/dL (2.2-4.2); Glucose 144 mg/dL (74-106); High Density Lipoprotein 65 mg/dL; Potassium 3.9 mmol/L (3.5-5.1); Protein, Total 7.3 g/dL (6.4-8.2); Sodium Level 135 mmol/L (136-145); Triglycerides 271 mg/dL; Very Low Density Lipoprotein 54 mg/dL (5-40)
[2024-08-23 17:43] LABS: Vitamin D,25 Hydroxy 39.7 ng/mL
== END | disposition home or self-care (01) ==
LOC: POLAB3 14:53
PROVIDERS: PCP Family Medicine Geriatric Medicine; Visit Provider Family Medicine Geriatric Medicine
DX: I10 Essential (primary) hypertension (principal); E78.5 Hyperlipidemia, unspecified; E55.9 Vitamin D deficiency, unspecified; R73.09 Other abnormal glucose
CPT/HCPCS: 36415; 80053; 80061; 82306; 83036; 84443; 85025

== ENCOUNTER → 2024-09-05 | Outpatient (CLI) | payer MEDICARE, SELFPAY | END | disposition home or self-care (01) | LOC: POLAB3 16:16 | PROVIDERS: PCP Family Medicine Geriatric Medicine; Visit Provider Family Medicine Geriatric Medicine | DX: J10.1 Influenza due to other identified influenza virus with other respiratory manifestations (principal) | CPT/HCPCS: 87631 ==

== ENCOUNTER → 2024-11-17 | Outpatient (CLI) | payer MEDICARE, SELFPAY ==
[2024-11-17 14:25] LABS: Absolute Lymphocyte Count 2.28 X10^3/uL (0.83-4.51); Absolute Neutrophil Count 4.9 X10^3/uL (2.0-7.7); Basophil# 0.05 X10^3/uL; Basophil% 0.6 % (0-1); Eosinophil# 0.14 X10^3/uL; Eosinophils% 1.8 % (0-5); Hematocrit 39.3 % (37-47); Hemoglobin 12.7 g/dL (12.0-15.0); Lymphocyte # 2.28 X10^3/ul (0.83-4.51); Lymphocyte % 28.5 % (19-41); Mean Corp Hgb Conc 32.3 g/dL (32-36); Mean Corpuscular Volume 86.8 fL (81-99); Mean Platelet Vol. 9.8 fl (6.2-12.0); Monocyte# 0.61 X10^3/uL; Monocyte% 7.6 % (0-10); NRBC Flagged by Analyzer 0 % (0-5); Neutrophil % 61.2 % (47-70); Platelet Count 244 K/mm3 (150-450); RBC Distribution Width SD 47.6 fl (35.1-43.9); Red Blood Count 4.53 M/mm3 (4.2-5.4)
[2024-11-17 15:18] LABS: ALB/GLOB Ratio 1.4 RATIO (0.9-2.4); AST(SGOT) 27 U/L (<=31); Alanine Aminotransfer ALT/SGPT 24 U/L (<=34); Alkaline Phosphatase 164 U/L (35-104); Anion Gap 10 (5-15); BUN 20 mg/dL (4-19); BUN/Creat Ratio 25.2 RATIO (10-20); Carbon Dioxide 22.7 mmol/L (21.0-32.0); Chloride 102 mmol/L (98-108); Cholesterol 207 mg/dL (<=200); Creatinine, Serum 0.79 mg/dL (0.70-1.20); EST Glomerular Filtration Rate 78 (>60); Globulin 2.9 g/dL (2.2-4.2); Glucose 90 mg/dL (70-99); High Density Lipoprotein 76 mg/dL; Low Density Lipoprotein Calc. 102 mg/dL; Potassium 4.5 mmol/L (3.3-5.1); Protein, Total 6.8 g/dL (5.9-8.4); Sodium Level 135 mmol/L (133-145); Total Bilirubin 0.18 mg/dL (0.00-1.30); Triglycerides 145 mg/dL; Very Low Density Lipoprotein 29 mg/dL (5-40); cholesterol:hdl ratio screen 2.74
[2024-11-17 15:23] LABS: Vitamin D,25 Hydroxy 45.3 ng/mL (30-100)
== END | disposition home or self-care (01) ==
LOC: LAB 14:05
PROVIDERS: PCP Family Medicine Geriatric Medicine; Referring Provider Family Medicine Geriatric Medicine; Visit Provider Family Medicine Geriatric Medicine
DX: I10 Essential (primary) hypertension (principal); E78.5 Hyperlipidemia, unspecified; E55.9 Vitamin D deficiency, unspecified
CPT/HCPCS: 36415; 80053; 80061; 82306; 84443; 85025

== ENCOUNTER → 2025-02-16 | Outpatient (CLI) | payer MEDICARE, SELFPAY ==
[2025-02-16 13:59] LABS: Hematocrit 39.0 % (37-47); Hemoglobin 12.2 g/dL (12.0-15.0); Immature Granulocytes Count 0.030 X10^3/uL (0.0-0.0); Mean Corp Hgb Conc 31.3 g/dL (32-36); Mean Corpuscular Volume 86.3 fL (81-99); Mean Platelet Vol. 10.9 fl (6.2-12.0); NRBC Flagged by Analyzer 0 % (0-5); Platelet Count 218 K/mm3 (150-450); RBC Distribution Width CV 13.8 % (11.6-14.6); RBC Distribution Width SD 43.9 fl (35.1-43.9); Red Blood Count 4.52 M/mm3 (4.2-5.4); White Blood Count 8.5 K/mm3 (4.4-11.0)
[2025-02-16 15:22] LABS: AST(SGOT) 18 U/L (<=31); Alanine Aminotransfer ALT/SGPT 9 U/L (<=34); Albumin, Serum 3.9 g/dL (3.4-4.8); Alkaline Phosphatase 108 U/L (35-104); Anion Gap 14 (5-15); BUN 11 mg/dL (4-19); BUN/Creat Ratio 11.8 RATIO (10-20); Calcium,Total 8.6 mg/dL (7.6-11.0); Carbon Dioxide 18.6 mmol/L (21.0-32.0); Chloride 101 mmol/L (98-108); Cholesterol 201 mg/dL (<=200); Globulin 2.8 g/dL (2.2-4.2); Glucose 190 mg/dL (70-99); Low Density Lipoprotein Calc. 83 mg/dL; Potassium 3.8 mmol/L (3.3-5.1); Triglycerides 262 mg/dL; Very Low Density Lipoprotein 52 mg/dL (5-40); Vitamin D,25 Hydroxy 40.8 ng/mL (30-100); cholesterol:hdl ratio screen 3.06
== END | disposition home or self-care (01) ==
LOC: POLAB3 13:38
PROVIDERS: PCP Family Medicine Geriatric Medicine; Visit Provider Family Medicine Geriatric Medicine
DX: I10 Essential (primary) hypertension (principal); E55.9 Vitamin D deficiency, unspecified; E78.5 Hyperlipidemia, unspecified; R68.83 Chills (without fever); R73.09 Other abnormal glucose
CPT/HCPCS: 36415; 80053; 80061; 82306; 83036; 84443; 85025; 87631

== ENCOUNTER → 2025-02-27 | Outpatient (CLI) | payer MEDICARE, SELFPAY | END | disposition home or self-care (01) | LOC: POLAB3 15:51 | PROVIDERS: PCP Family Medicine Geriatric Medicine; Visit Provider Family Medicine Geriatric Medicine | DX: R68.83 Chills (without fever) (principal) | CPT/HCPCS: 87631 ==

== ENCOUNTER → 2025-05-11 | Outpatient (CLI) | payer MEDICARE, SELFPAY ==
[2025-05-11 15:08] LABS: AST(SGOT) 30 U/L (<=31); Alanine Aminotransfer ALT/SGPT 27 U/L (<=34); Albumin, Serum 4.2 g/dL (3.4-4.8); Alkaline Phosphatase 119 U/L (35-104); Anion Gap 12 (5-15); BUN 22 mg/dL (4-19); BUN/Creat Ratio 21.7 RATIO (10-20); Calcium,Total 9.6 mg/dL (7.6-11.0); Carbon Dioxide 21.0 mmol/L (21.0-32.0); Chloride 102 mmol/L (98-108); Globulin 3.0 g/dL (2.2-4.2); Glucose 147 mg/dL (70-99); Potassium 5.0 mmol/L (3.3-5.1); Vitamin D,25 Hydroxy 51.3 ng/mL (30-100)
[2025-05-11 15:21] LABS: Hematocrit 38.4 % (37-47); Hemoglobin 12.2 g/dL (12.0-15.0); Immature Granulocytes Count 0.020 X10^3/uL (0.0-0.0); Mean Corp Hgb Conc 31.8 g/dL (32-36); Mean Corpuscular Volume 85.5 fL (81-99); Mean Platelet Vol. 10.6 fl (6.2-12.0); NRBC Flagged by Analyzer 0 % (0-5); Platelet Count 265 K/mm3 (150-450); RBC Distribution Width CV 16.1 % (11.6-14.6); RBC Distribution Width SD 50.9 fl (35.1-43.9); Red Blood Count 4.49 M/mm3 (4.2-5.4); White Blood Count 9.7 K/mm3 (4.4-11.0)
[2025-05-11 21:34] LABS: Xtra Tube Kwok EXTRA TUBE
== END | disposition home or self-care (01) ==
LOC: POLAB3 13:33
PROVIDERS: PCP Family Medicine Geriatric Medicine; Visit Provider Family Medicine Geriatric Medicine
DX: I10 Essential (primary) hypertension (principal); E03.9 Hypothyroidism, unspecified; E55.9 Vitamin D deficiency, unspecified
CPT/HCPCS: 36415; 80053; 82306; 84443; 85025